=== PATIENT | male | born 1940 | race Caucasian/White ===

== ENCOUNTER 2016-12-04 08:33 | Day surgery (SDC) | payer OTHER, BC ==
[~2016-12-04] VITALS: Ht 167.6 cm; Wt 79.5 kg
--- NOTE | 2016-12-04 07:52 | History and Physical ---
History & Physical Chief Complaint: End stage renal disease, malfunctioning left upper extremity Herograft History of Present Illness The patient is a 74 year old male with ESRD on HD thru L upper extremity herograft. The dialysis unit is having trouble running his dialysis. Fistulogram was recommended. Pt denies OCHOA, fever, chills, chest pain, SOB, abd pain, N/V, rest pain, claudication, other complaints. Allergies No Known Allergies (Verified , 05/13/15) NKDA Surgical / Medical History Hx Cardiac Surgery: No Hx Abdominal Surgery: No Hx Cancer Surgery: No Hx Thoracic Surgery: No Hx Orthopedic: No Hx Urinary Tract Surgery: No Past Medical/Surgical History: Cancer (thyroid), High Cholesterol, Kidney Disease Family History Noncontributory Social History Smoking Status: Former Smoker (quit 8 yr ago) Hx Tobacco Use In Past Year?: No Hx Alcohol Use - Type & Amnt: No Hx Substance Use -Type & Amnt: No Review of Systems Constitutional: No chills, No malaise Skin: No change in color Eyes: No visual changes ENMT: No sore throat Respiratory: No LUNA, No cough, No hemoptysis, No short of breath Cardiovascular: No chest pain, No edema, No intermittent claudication, No palpitations, No syncope Gastrointestinal: No abdominal pain, No nausea, No vomiting Neurologic: No dizziness, No headache, No numbness, No tingling Physical Exam: Constitutional: General Apperance: well-nourished, well-developed Level of Distress: NAD, chronically ill Ambulation: ambulating normally Psychiatric: Mental Status: active & alert, normal mood, normal affect Orientation: oriented except where noted, to time, to place, to person Memory: recent memory normal, remote memory normal (somewhat vague) Head: normocephalic, atraumatic Eyes: EOM: EOMI ENMT: normal ENT inspection, hearing grossly normal Neck: supple, trachea midline Lungs: Respiratory effort: no dyspnea Auscultation: no wheezing, no rales/crackles, no rhonchi, decreased breath sounds Cardiovascular: Apical Impulse: not displaced Heart Auscultation: RRR, no murmurs, no rubs, no gallops Peripheral Pulses: Pulses: full and equal, in all extremities except if noted Bruits: none appreciated Carotid Pulse: normal on the left, normal on the right Brachial Pulses: normal on the left, normal on the right Radial Pulse: normal on the left, normal on the right, pertinent finding , thrill present in herograft Femoral Pulse: normal on the left, normal on the right Posterior Tibialis Pulse: normal on the left, normal on the right Dorsalis Pedis Pulse: normal on the left, normal on the right Abdomen: Inspection & Palpation: soft, non-distended, no tenderness, guarding & rebound Musculoskeletal: normal strength (5/5 throughout), normal tone Extremities: Upper Right: no cyanosis, no edema, no varicosities Upper Left: no cyanosis, no edema, no varicosities, thrill present Lower Right: no cyanosis, no edema, no varicosities, Lower Left: no cyanosis, no edema, no varicosities Neurologic: Cranial Nerves: grossly intact Sensation: grossly intact ASSESSMENT and PLAN: Malfuntioning herograft ESRD on HD Plan: Pt admitted for removal a fistulogram with possible intervention. Procedure , risks, benefits, and alternatives discussed with pt and sas analyst, Anup Browne. Pt expresses understanding and agreement
--- NOTE | 2016-12-04 07:59 | Procedure Note ---
Pre-Mod Sedation Assessment General Date of Moderate Sedation: Dec 04, 2016. Pre-Sedation Airway Assessment Smoking Status: Former Smoker Mallampati Classification: Class I ASA Classification: Class II Notes The planned sedation has been discussed with the patient and consent obtained. I have identified the patient, determined the appropriateness of sedation and have assessed the patient immediately prior to the procedure. All medicine(s) and interventions are by my order.
[~2016-12-04 08:33] MED LIST: ACET-1311 PO; ATOR-22 PO; B COTAB PO; CALC500C70 PO; CALC667C4 PO; CEFAZOLIN 1000MG/55 ML D5W IV SCH; CGN1X PO; D5W AND 1/4NSS 1000 ML IV SCH; FURO80TA63 PO; HALO100I IM; HLD5X PO; HYDCR1CL TOP; LEVO200T6 PO; NEOMOIN2 TD; OXYC-57 PO; PATIENT'S HEIGHT AND/OR WEIGHT NEEDED SCH; TERB1CRE TOP; TRIH2TAB3 PO; [UNRECOGNIZED DRUG - CODE] PO
[2016-12-04 08:50] VITALS: BP 93/70; PULSE 90; TEMP 36.8; O2SAT 94; Ht 167.6 cm; Wt 79.5 kg
--- NOTE | 2016-12-04 10:45 | History & Physical Bridge Note ---
H&P Re-Evaluation Bridge Note: I have examined the patient, reviewed the History & Physical and in the interval since the performance of the History & Physical I have noted the following changes of clinical significance: No changes noted
[2016-12-04] MEDS ORDERED: LIDOCAINE HCL 1% 20 ML VIAL INJ ONE (11:06)
[2016-12-04] MEDS ORDERED: OPTIRAY 300 IV ONE (11:19)
--- NOTE | 2016-12-04 11:25 | [facility] Post Operative Brief Note ---
Immediate Operative Summary Operative Date Dec 04, 2016. Pre-Operative Diagnosis malfunctioning fistula Post-Operative Diagnosis same Procedure(s) Performed Fistulogram Left Upper Extremity, Percutaneous Transluminal Angioplasty Fistula Surgeon Dr. Burton Embossing Machine Tender Surgeon(s) none Estimated Blood Loss 5 ml Findings no residual stenosis Specimens none Anesthesia Local Complication(s) None Disposition
--- NOTE | 2016-12-04 11:28 | Discharge Instructions ---
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 Post Anesthesia Instructions: If you have had General Anesthesia or IV Sedation: * Do not drive today. * Resume driving when surgeon permits. * Do not make important decisions or sign legal documents today. * Call surgeon for: 1. Temperature elevations greater than 101 degrees F. 2. Uncontrollable pain. 3. Excessive bleeding. 4. Persistent nausea and vomiting. 5. Medication intolerance (nausea, vomiting or rash). * For nausea and vomiting use only clear liquids such as: tea, soda, bouillon until nausea subsides, then gradually increase diet as tolerated. * If you have any concerns or questions, call your surgeon's office. If physician is unavailable and it is an emergency, call 911 or go to the nearest emergency room. . Instructions / Follow-Up Instructions / Follow-Up Call [phone] with any questions or concerns. SPECIAL CARE INSTRUCTIONS: Medications: * Continue to take your medications as directed. If you have been given a prescription for Plavix, please fill it immediately and take as directed. Incision Care: * Your puncture site may have some bruising and minor swelling for about one week. * You will have a small dressing covering your puncture site. You may remove the dressing after 24 hours and shower. You may let the warm soapy water run over it, but be sure to dry the puncture site well and keep it dry. * DO NOT IMMERSE THE INCISION IN A TUB/POOL/etc. UNTIL HEALED. * Puncture sites should be kept covered with a band-aid until it begins to heal. Restrictions: * Depending on whether you leg or arm was punctured to access the arteries, you will be required to lay flat, hold your arm still, or both, for about 4 hours after the procedure to prevent bleeding. * Limit your activity for the first 48 hours. You may walk and go up and down steps. Avoid excessive bending or movement at the puncture site. Possible Complications: * Excessive Swelling - after blood flow is improved you may notice increased swelling in the lower legs. This is a normal response. This usually depends on the amount of blockages in the leg, how long they have been there prior to your procedure and how much blood flow was restored. Elevating your legs will help to improve this. Please notify our office ([phone] ) if the swelling does not go away after lying in bed overnight. * Infection/Drainage/Bleeding - Drainage or bleeding from the puncture site should be minimal. If you have excessive bleeding or drainage, call our office ([phone]) right away. * Pain - You may experience some mild pain or soreness at your puncture site. If your pain does not improve, please contact our office ([phone]). Call your doctor and seek emergent treatment if you develop: * Temperature above 101 degrees * Any fever or chills * Any redness or purulent drainage from the puncture site * Any new dusky/blue colored toes or feet with coolness or sharp or aching pain. SKIN IRRITATION: * You may experience some redness and/or swelling in the area where radiation was administered. If any skin irritation occurs, please contact your family physician. FOLLOW UP VISIT: Keep any scheduled doctor appointments. Diet Recommendations Recommended Home Diet: resume previous diet Procedures Procedures Performed: Fistulogram Left Upper Extremity, Percutaneous Transluminal Angioplasty Fistula Pending Studies Studies pending at discharge: no Medical Emergencies . Who to Call and When: Medical Emergencies: If at any time you feel your situation is an emergency, please call 911 immediately. . Non-Emergent Contact Non-Emergency issues call your: Surgeon . . "Provider Documentation" section prepared by Wilberto Burton.
[2016-12-04 11:30] VITALS: BP 122/62; PULSE 77; TEMP 36.5; O2SAT 95
--- NOTE | 2016-12-04 11:52 | DIAGNOSTIC IMAGING REPORT ---
DATE OF PROCEDURE: 12/04/2016 PREOPERATIVE DIAGNOSIS: Malfunctioning left upper arm HeRO graft. POSTOPERATIVE DIAGNOSIS: Same. PROCEDURE: 1. Left upper extremity fistulogram. 2. Balloon angioplasty of the fistula. SURGEON: Dr. Burton. ANESTHETIC: Local. PROCEDURE INDICATIONS: The patient is a 76-year-old gentleman with a HeROGraft in his left upper extremity. Fistulogram was recommended. The patient understood the risks, options and benefits and agreed to go ahead with the procedure. The patient was taken to the angio suite and placed in supine position. The left upper arm was then prepped and draped in a sterile manner. Local anesthetic was administered. Using micropuncture technique the fistula was punctured. The fistulogram was performed. This showed a tight stenosis in the mid portion of the prosthetic fistula. The catheter portion of the HeROGraft was widely patent. An 0.035 wire was then inserted. The sheath was exchanged to a 5-Welsh sheath. A 7 x 4 balloon was then inserted and the area was ballooned twice to 18 atmospheres of pressure. Post-dilatation there was no residual stenosis. Sheath was then pulled, pressure was applied. Adequate hemostasis was obtained. The fistula itself other than its narrowing was widely patent through the catheter of the HeROGraft. Proximally the arterial anastomosis was widely patent in the proximal portion of the graft before the puncture. Sterile dressings were then applied to the wound. The patient left the angio suite in good condition and tolerated the procedure well.
[2016-12-04 11:55] VITALS: BP 112/63; PULSE 75; TEMP 36.6; O2SAT 96
== END 2016-12-04 12:05 | disposition home or self-care (01) ==
LOC: C.ACU 08:33
PROVIDERS: ATTEND Surgery Vascular Surgery
DX: T82.898A Other specified complication of vascular prosthetic devices, implants and grafts, initial encounter (principal); N18.6 End stage renal disease; I12.0 Hypertensive chronic kidney disease with stage 5 chronic kidney disease or end stage renal disease; E78.00 Pure hypercholesterolemia, unspecified; Z99.2 Dependence on renal dialysis; Z87.891 Personal history of nicotine dependence; Y84.8 Other medical procedures as the cause of abnormal reaction of the patient, or of later complication, without mention of misadventure at the time of the procedure

== ENCOUNTER 2017-03-26 07:45 | Day surgery (SDC) | payer OTHER, BC ==
[~2017-03-26] VITALS: Ht 165.1 cm; Wt 78.0 kg
--- NOTE | 2017-03-26 07:36 | History and Physical ---
History & Physical Date of Service Mar 26, 2017. History & Physical Chief Complaint: End stage renal disease, malfunctioning left upper extremity Herograft History of Present Illness The patient is a 74 year old male with ESRD on HD thru L upper extremity herograft. The dialysis unit is having trouble running his dialysis. Fistulogram was recommended. Pt denies OCHOA, fever, chills, chest pain, SOB, abd pain, N/V, rest pain, claudication, other complaints. Allergies No Known Allergies (Verified , 05/13/15) NKDA Surgical / Medical History Hx Cardiac Surgery: No Hx Abdominal Surgery: No Hx Cancer Surgery: No Hx Thoracic Surgery: No Hx Orthopedic: No Hx Urinary Tract Surgery: No Past Medical/Surgical History: Cancer (thyroid), High Cholesterol, Kidney Disease Family History Noncontributory Social History Smoking Status: Former Smoker (quit 8 yr ago) Hx Tobacco Use In Past Year?: No Hx Alcohol Use - Type & Amnt: No Hx Substance Use -Type & Amnt: No Review of Systems Constitutional: No chills, No malaise Skin: No change in color Eyes: No visual changes ENMT: No sore throat Respiratory: No LUNA, No cough, No hemoptysis, No short of breath Cardiovascular: No chest pain, No edema, No intermittent claudication, No palpitations, No syncope Gastrointestinal: No abdominal pain, No nausea, No vomiting Neurologic: No dizziness, No headache, No numbness, No tingling Physical Exam: Constitutional: General Apperance: well-nourished, well-developed Level of Distress: NAD, chronically ill Ambulation: ambulating normally Psychiatric: Mental Status: active & alert, normal mood, normal affect Orientation: oriented except where noted, to time, to place, to person Memory: recent memory normal, remote memory normal (somewhat vague) Head: normocephalic, atraumatic Eyes: EOM: EOMI ENMT: normal ENT inspection, hearing grossly normal Neck: supple, trachea midline Lungs: Respiratory effort: no dyspnea Auscultation: no wheezing, no rales/crackles, no rhonchi, decreased breath sounds Cardiovascular: Apical Impulse: not displaced Heart Auscultation: RRR, no murmurs, no rubs, no gallops Peripheral Pulses: Pulses: full and equal, in all extremities except if noted Bruits: none appreciated Carotid Pulse: normal on the left, normal on the right Brachial Pulses: normal on the left, normal on the right Radial Pulse: normal on the left, normal on the right, pertinent finding , thrill present in herograft Femoral Pulse: normal on the left, normal on the right Posterior Tibialis Pulse: normal on the left, normal on the right Dorsalis Pedis Pulse: normal on the left, normal on the right Abdomen: Inspection & Palpation: soft, non-distended, no tenderness, guarding & rebound Musculoskeletal: normal strength (5/5 throughout), normal tone Extremities: Upper Right: no cyanosis, no edema, no varicosities Upper Left: no cyanosis, no edema, no varicosities, thrill present Lower Right: no cyanosis, no edema, no varicosities, Lower Left: no cyanosis, no edema, no varicosities Neurologic: Cranial Nerves: grossly intact Sensation: grossly intact ASSESSMENT and PLAN: Malfuntioning herograft ESRD on HD Plan: Pt admitted for a fistulogram with possible intervention. Procedure, risks, benefits, and alternatives discussed with pt and inverform machine operator, Anup Browne. Pt expresses understanding and agreement
--- NOTE | 2017-03-26 07:37 | Procedure Note ---
Pre-Mod Sedation Assessment General Date of Moderate Sedation: Mar 26, 2017. Pre-Sedation Airway Assessment Smoking Status: Former Smoker Mallampati Classification: Class I ASA Classification: Class II Notes The planned sedation has been discussed with the patient and consent obtained. I have identified the patient, determined the appropriateness of sedation and have assessed the patient immediately prior to the procedure. All medicine(s) and interventions are by my order.
[~2017-03-26 07:45] MED LIST changes: +BENZ-88 PO; -CGN1X PO; -D5W AND 1/4NSS 1000 ML IV SCH; -NEOMOIN2 TD; +NEOMOIN3 TD; -PATIENT'S HEIGHT AND/OR WEIGHT NEEDED SCH
[2017-03-26 08:14] VITALS: BP 98/69; PULSE 91; TEMP 36.8; O2SAT 97; Ht 165.1 cm; Wt 78.0 kg
[2017-03-26 10:17] VITALS: BP 98/69; PULSE 91; TEMP 36.8; O2SAT 97
[2017-03-26] MEDS ORDERED: FENTANYL CITRATE INJ 50 MCG/1 ML 2 ML VIAL ONE (10:58)
[2017-03-26] MEDS ORDERED: MIDAZOLAM HCL 1 MG/ML 2ML VIAL ONE (10:58)
[2017-03-26] MEDS ORDERED: OPTIRAY 300 IV ONE (11:20)
[2017-03-26] MEDS ORDERED: LIDOCAINE HCL 1% 20 ML VIAL INJ ONE (11:20)
--- NOTE | 2017-03-26 11:23 | [facility] Post Operative Brief Note ---
Immediate Operative Summary Operative Date Mar 26, 2017. Pre-Operative Diagnosis Malfunction Fistula Post-Operative Diagnosis Same Procedure(s) Performed Fistulogram, Percutaneous Transluminal Angioplasty Venous, Surgeon Dr. Burton Infection Control Practitioner Surgeon(s) None Estimated Blood Loss 3 Findings stenosis in fistula, no residual post block captain Specimens None Anesthesia Local Complication(s) None Disposition
--- NOTE | 2017-03-26 11:25 | Discharge Instructions ---
Discharge Instructions Date of Service Mar 26, 2017. Visit Reason for Visit: Malfunctioning Arteriovenous Fistula Discharge Discharge Diagnosis / Problem: Malfunctioning left upper arm herograft Discharge Goals Goal(s): Therapeutic intervention Activity Recommendations Activity Limitations: per Instructions/Follow-up section Anesthesia . Post Anesthesia Instructions: If you have had General Anesthesia or IV Sedation: * Do not drive today. * Resume driving when surgeon permits. * Do not make important decisions or sign legal documents today. * Call surgeon for: 1. Temperature elevations greater than 101 degrees F. 2. Uncontrollable pain. 3. Excessive bleeding. 4. Persistent nausea and vomiting. 5. Medication intolerance (nausea, vomiting or rash). * For nausea and vomiting use only clear liquids such as: tea, soda, bouillon until nausea subsides, then gradually increase diet as tolerated. * If you have any concerns or questions, call your surgeon's office. If physician is unavailable and it is an emergency, call 911 or go to the nearest emergency room. . Instructions / Follow-Up Instructions / Follow-Up Call [phone] with any questions or concerns. SPECIAL CARE INSTRUCTIONS: Medications: * Continue to take your medications as directed. If you have been given a prescription for Plavix, please fill it immediately and take as directed. Incision Care: * Your puncture site may have some bruising and minor swelling for about one week. * You will have a small dressing covering your puncture site. You may remove the dressing after 24 hours and shower. You may let the warm soapy water run over it, but be sure to dry the puncture site well and keep it dry. * DO NOT IMMERSE THE INCISION IN A TUB/POOL/etc. UNTIL HEALED. * Puncture sites should be kept covered with a band-aid until it begins to heal. Restrictions: * Depending on whether you leg or arm was punctured to access the arteries, you will be required to lay flat, hold your arm still, or both, for about 4 hours after the procedure to prevent bleeding. * Limit your activity for the first 48 hours. You may walk and go up and down steps. Avoid excessive bending or movement at the puncture site. Possible Complications: * Excessive Swelling - after blood flow is improved you may notice increased swelling in the lower legs. This is a normal response. This usually depends on the amount of blockages in the leg, how long they have been there prior to your procedure and how much blood flow was restored. Elevating your legs will help to improve this. Please notify our office ([phone] ) if the swelling does not go away after lying in bed overnight. * Infection/Drainage/Bleeding - Drainage or bleeding from the puncture site should be minimal. If you have excessive bleeding or drainage, call our office ([phone]) right away. * Pain - You may experience some mild pain or soreness at your puncture site. If your pain does not improve, please contact our office ([phone]). Call your doctor and seek emergent treatment if you develop: * Temperature above 101 degrees * Any fever or chills * Any redness or purulent drainage from the puncture site * Any new dusky/blue colored toes or feet with coolness or sharp or aching pain. SKIN IRRITATION: * You may experience some redness and/or swelling in the area where radiation was administered. If any skin irritation occurs, please contact your family physician. FOLLOW UP VISIT: Keep any scheduled doctor appointments. Diet Recommendations Recommended Home Diet: resume previous diet Procedures Procedures Performed: Fistulogram, Percutaneous Transluminal Angioplasty Venous, Pending Studies Studies pending at discharge: no Medical Emergencies . Who to Call and When: Medical Emergencies: If at any time you feel your situation is an emergency, please call 911 immediately. . Non-Emergent Contact Non-Emergency issues call your: Surgeon . . "Provider Documentation" section prepared by Wilberto Burton. .
[2017-03-26 11:32] VITALS: BP 128/75; PULSE 87; TEMP 37.4; O2SAT 95
--- NOTE | 2017-03-26 11:51 | DIAGNOSTIC IMAGING REPORT ---
DATE OF PROCEDURE: 03/26/2017 PREOPERATIVE DIAGNOSIS: Malfunctioning left upper arm HeRO graft. POSTOPERATIVE DIAGNOSIS: Stenosis of the graft. PROCEDURE: 1. Fistulogram. 2. Balloon angioplasty of the fistula venous outflow. SURGEON: Dr. Burton. ANESTHETIC: Local. PROCEDURE INDICATIONS: The patient is a 76-year-old male on dialysis with a left upper arm HeRO graft. The dialysis unit is having poor runs. Fistulogram was recommended. He underwent CONSIGNEE of the fistula in the past. This was discussed with the patient who understood the risks, options and benefits. It was also discussed with his brother who is his POA and consent was obtained. The patient was taken to the angio suite and placed in supine position. After left arm was prepped and draped in a sterile manner, local anesthetic was administered. Percutaneous puncture was made of the proximal portion of the fistula in the left upper arm using micropuncture technique. Fistulogram was then performed. This shows 2 areas of moderate stenosis, one in the mid portion of the fistula, one up near the HeRO graft connection. There is also an area just in the proximal portion between the short vein part of the fistula and the prosthetic fistula which had a mild stenosis but had some difficulty getting the wire through when placing the sheath. It was decided to balloon these areas. The sheath was exchanged over a wire to a 6-[place]vian sheath. An 0.035 Glidewire was then passed through the bowel lesions. Using a 6 mm Conquest balloon the 3 areas were dilated to 36 atmospheres of pressure. There was minimal residual stenosis seen at the end of the balloon angioplasties. Good thrill was then felt. The sheath was then pulled. Pressure was applied. Adequate hemostasis was obtained. Sterile dressings were then applied to the wound. The patient left the angio suite in good condition and tolerated the procedure well.
[2017-03-26 12:00] VITALS: BP 115/66; PULSE 83; TEMP 37.2; O2SAT 95
[2017-03-26] MEDS ORDERED: D5W AND 1/4NSS 1,000 ML IV SCH (16:30)
[2017-10-29] MEDS ORDERED: POLYSOL21 OP ×2 (06:36)
[2017-10-29] MEDS ORDERED: OXYC-57 PO (09:57)
== END 2017-03-26 12:20 | disposition home or self-care (01) ==
LOC: C.ACU 07:45
PROVIDERS: ATTEND Surgery Vascular Surgery
DX: T82.590A Other mechanical complication of surgically created arteriovenous fistula, initial encounter (principal); Y83.2 Surgical operation with anastomosis, bypass or graft as the cause of abnormal reaction of the patient, or of later complication, without mention of misadventure at the time of the procedure; N18.6 End stage renal disease; Z99.2 Dependence on renal dialysis; E78.00 Pure hypercholesterolemia, unspecified; Z87.891 Personal history of nicotine dependence

== ENCOUNTER 2017-07-23 08:05 | Day surgery (SDC) | payer OTHER, BC ==
[~2017-07-23] VITALS: Ht 167.6 cm; Wt 80.0 kg
--- NOTE | 2017-07-23 06:08 | History and Physical ---
History & Physical Date of Service Jul 23, 2017. History & Physical Chief Complaint: End stage renal disease, malfunctioning left upper extremity Herograft History of Present Illness The patient is a 74 year old male with ESRD on HD thru L upper extremity herograft. The dialysis unit is having trouble running his dialysis. Fistulogram was recommended. Pt denies OCHOA, fever, chills, chest pain, SOB, abd pain, N/V, rest pain, claudication, other complaints. Allergies No Known Allergies (Verified , 05/13/15) NKDA Surgical / Medical History Hx Cardiac Surgery: No Hx Abdominal Surgery: No Hx Cancer Surgery: No Hx Thoracic Surgery: No Hx Orthopedic: No Hx Urinary Tract Surgery: No Past Medical/Surgical History: Cancer (thyroid), High Cholesterol, Kidney Disease Family History Noncontributory Social History Smoking Status: Former Smoker (quit 8 yr ago) Hx Tobacco Use In Past Year?: No Hx Alcohol Use - Type & Amnt: No Hx Substance Use -Type & Amnt: No Review of Systems Constitutional: No chills, No malaise Skin: No change in color Eyes: No visual changes ENMT: No sore throat Respiratory: No LUNA, No cough, No hemoptysis, No short of breath Cardiovascular: No chest pain, No edema, No intermittent claudication, No palpitations, No syncope Gastrointestinal: No abdominal pain, No nausea, No vomiting Neurologic: No dizziness, No headache, No numbness, No tingling Physical Exam: Constitutional: General Apperance: well-nourished, well-developed Level of Distress: NAD, chronically ill Ambulation: ambulating normally Psychiatric: Mental Status: active & alert, normal mood, normal affect Orientation: oriented except where noted, to time, to place, to person Memory: recent memory normal, remote memory normal (somewhat vague) Head: normocephalic, atraumatic Eyes: EOM: EOMI ENMT: normal ENT inspection, hearing grossly normal Neck: supple, trachea midline Lungs: Respiratory effort: no dyspnea Auscultation: no wheezing, no rales/crackles, no rhonchi, decreased breath sounds Cardiovascular: Apical Impulse: not displaced Heart Auscultation: RRR, no murmurs, no rubs, no gallops Peripheral Pulses: Pulses: full and equal, in all extremities except if noted Bruits: none appreciated Carotid Pulse: normal on the left, normal on the right Brachial Pulses: normal on the left, normal on the right Radial Pulse: normal on the left, normal on the right, pertinent finding , thrill present in herograft Femoral Pulse: normal on the left, normal on the right Posterior Tibialis Pulse: normal on the left, normal on the right Dorsalis Pedis Pulse: normal on the left, normal on the right Abdomen: Inspection & Palpation: soft, non-distended, no tenderness, guarding & rebound Musculoskeletal: normal strength (5/5 throughout), normal tone Extremities: Upper Right: no cyanosis, no edema, no varicosities Upper Left: no cyanosis, no edema, no varicosities, thrill present Lower Right: no cyanosis, no edema, no varicosities, Lower Left: no cyanosis, no edema, no varicosities Neurologic: Cranial Nerves: grossly intact Sensation: grossly intact ASSESSMENT and PLAN: Malfuntioning herograft ESRD on HD Plan: Pt admitted for a fistulogram with possible intervention. I have discussed the risks options and benefits of the procedure with the patient. The patient understands the risks options and benefits and agrees to the procedure.
[~2017-07-23 08:05] MED LIST changes: -BENZ-88 PO; +CGN1X PO; +D5W AND 1/4NSS 1000 ML IV SCH; -NEOMOIN3 TD; -OXYC-57 PO; -TERB1CRE TOP
[2017-07-23 08:37] VITALS: BP 99/62; PULSE 72; TEMP 36.5; O2SAT 93; Ht 167.6 cm; Wt 80.0 kg
--- NOTE | 2017-07-23 10:08 | Progress Note ---
Progress Note Date of Service Jul 23, 2017. Progress Note consent obtained from POA. I have discussed the risks options and benefits of the procedure with the poa. The poa understands the risks options and benefits and agrees to the procedure.
--- NOTE | 2017-07-23 10:09 | Procedure Note ---
Pre-Mod Sedation Assessment General Date of Moderate Sedation: Jul 23, 2017. Vital Signs: Vital Signs Past 12 Hours Date Time Temp Pulse Resp B/P (MAP) Pulse Ox O2 Delivery O2 Flow Rate FiO2 07/23/17 08:37 36.5 72 18 99/62 (74) 93 Room Air Pre-Sedation Airway Assessment Short Thick Neck: No Hx of Sleep Apnea: No Smoking Status: Former Smoker Mallampati Classification: Class I ASA Classification: Class III Notes The planned sedation has been discussed with the patient and consent obtained. I have identified the patient, determined the appropriateness of sedation and have assessed the patient immediately prior to the procedure. All medicine(s) and interventions are by my order.
[2017-07-23 12:11] VITALS: BP 99/62; TEMP 36.5; O2SAT 93
[2017-07-23] MEDS ORDERED: FENTANYL CITRATE INJ 50 MCG/1 ML 2 ML VIAL ONE (12:14)
[2017-07-23] MEDS ORDERED: MIDAZOLAM HCL 1 MG/ML 2ML VIAL ONE (12:15)
[2017-07-23] MEDS ORDERED: LIDOCAINE HCL 1% 20 ML VIAL INJ ONE ×2 (12:35→13:02)
--- NOTE | 2017-07-23 13:01 | [facility] Post Operative Brief Note ---
Immediate Operative Summary Operative Date Jul 23, 2017. Pre-Operative Diagnosis Malfunctioning Fistula Post-Operative Diagnosis Same Procedure(s) Performed Fistulogram, ELECTRICAL MACHINE BUILDER venous Surgeon Dr. Burton Biofuels Production Manager Surgeon(s) Dr. Red Oleary Estimated Blood Loss 5 Findings no residual stenosis Specimens None Anesthesia Local Complication(s) None Disposition
[2017-07-23] MEDS ORDERED: OPTIRAY 300 IV ONE (13:02)
--- NOTE | 2017-07-23 13:02 | Discharge Instructions ---
Discharge Instructions Date of Service Jul 23, 2017. Visit Reason for Visit: End Stage Renal Disease, Malfunctioning Fistula Discharge Discharge Diagnosis / Problem: Malfunctioning fistula Discharge Goals Goal(s): Therapeutic intervention Activity Recommendations Activity Limitations: resume your previous activity Anesthesia . Post Anesthesia Instructions: If you have had General Anesthesia or IV Sedation: * Do not drive today. * Resume driving when surgeon permits. * Do not make important decisions or sign legal documents today. * Call surgeon for: 1. Temperature elevations greater than 101 degrees F. 2. Uncontrollable pain. 3. Excessive bleeding. 4. Persistent nausea and vomiting. 5. Medication intolerance (nausea, vomiting or rash). * For nausea and vomiting use only clear liquids such as: tea, soda, bouillon until nausea subsides, then gradually increase diet as tolerated. * If you have any concerns or questions, call your surgeon's office. If physician is unavailable and it is an emergency, call 911 or go to the nearest emergency room. . Instructions / Follow-Up Instructions / Follow-Up Call [phone] with any questions or concerns. SPECIAL CARE INSTRUCTIONS: Medications: * Continue to take your medications as directed. If you have been given a prescription for Plavix, please fill it immediately and take as directed. Incision Care: * Your puncture site may have some bruising and minor swelling for about one week. * You will have a small dressing covering your puncture site. You may remove the dressing after 24 hours and shower. You may let the warm soapy water run over it, but be sure to dry the puncture site well and keep it dry. * DO NOT IMMERSE THE INCISION IN A TUB/POOL/etc. UNTIL HEALED. * Puncture sites should be kept covered with a band-aid until it begins to heal. Restrictions: * Depending on whether you leg or arm was punctured to access the arteries, you will be required to lay flat, hold your arm still, or both, for about 4 hours after the procedure to prevent bleeding. * Limit your activity for the first 48 hours. You may walk and go up and down steps. Avoid excessive bending or movement at the puncture site. Possible Complications: * Excessive Swelling - after blood flow is improved you may notice increased swelling in the lower legs. This is a normal response. This usually depends on the amount of blockages in the leg, how long they have been there prior to your procedure and how much blood flow was restored. Elevating your legs will help to improve this. Please notify our office ([phone] ) if the swelling does not go away after lying in bed overnight. * Infection/Drainage/Bleeding - Drainage or bleeding from the puncture site should be minimal. If you have excessive bleeding or drainage, call our office ([phone]) right away. * Pain - You may experience some mild pain or soreness at your puncture site. If your pain does not improve, please contact our office ([phone]). Call your doctor and seek emergent treatment if you develop: * Temperature above 101 degrees * Any fever or chills * Any redness or purulent drainage from the puncture site * Any new dusky/blue colored toes or feet with coolness or sharp or aching pain. SKIN IRRITATION: * You may experience some redness and/or swelling in the area where radiation was administered. If any skin irritation occurs, please contact your family physician. FOLLOW UP VISIT: Keep any scheduled doctor appointments. Diet Recommendations Recommended Home Diet: resume previous diet Procedures Procedures Performed: Fistulogram, SHIP BOAT OR BARGE MATE venous Pending Studies Studies pending at discharge: no Medical Emergencies . Who to Call and When: Medical Emergencies: If at any time you feel your situation is an emergency, please call 911 immediately. . Non-Emergent Contact Non-Emergency issues call your: Surgeon . . "Provider Documentation" section prepared by Wilberto Burton. .
[2017-07-23 13:15] VITALS: BP 120/65; PULSE 75; TEMP 36.6; O2SAT 93
--- NOTE | 2017-07-23 13:15 | [facility] Operative Report ---
Operative Report Operative Date Jul 23, 2017. Pre-Operative Diagnosis Malfunctioning Fistula Post-Operative Diagnosis Same Procedure(s) Performed Fistulogram, DATA ANALYST ETL DEVELOPER venous (Eastover 6 x 100 mm balloon) Surgeon Dr. Burton Toll Service Observer Surgeon(s) Dr. Red Oleary Estimated Blood Loss 5 Findings Patient had an area of stenosis made graft just distal to the arterial graft anastomosis with smaller area of mild stenosis in the mid graft. There was no evidence of central stenosis within the hero graft. A completion fistulogram showed good result with no residual stenosis. contrast 16cc Fluoro time 1.8min Radiation 8mGy Specimens None Anesthesia Local Complication(s) None Disposition Recovery Room / PACU Indications 74 year old male with ESRD on HD thru L upper extremity herograft. The dialysis unit is having trouble running his dialysis. Fistulogram was recommended. Description of Procedure Patient was prepped operating room and placed on the operating table in supine position left upper extremity was extended and prepped and draped in sterile fashion. 1% lidocaine was injected over the hero graft under the skin and a micropuncture technique was used to access the hero graft. This was done with a Seldinger technique and a micropuncture puncture sheath was placed over the wire. A fistulogram was completed and carried centrally. This showed a patent hero graft with 2 areas of stenosis one just distal to the and a stenosis between the artery and the graft and a second area of mild stenosis within the hero graft. The first access of the fistula was cannulated into the arterial side so a second attempt access the graft was completed and this time access the hero graft. An angled glide 0.035 wire was advanced and the micropuncture sheath was exchanged for a 5 Hungarian sheath over the wire. A 6 x 100 mm Eastover balloon was then advanced into the graft and angioplasty of the entire hero graft was completed all the way back to the area of access. The completion. Fistulogram was carried out showing resolution of stenosis within the graft as well as a patent arterial to graft and a stenosis. The sheath wire and balloon were all removed and a gentle pressure was applied over the puncture site until hemostasis was achieved. Patient was then taken to the recovery room in good condition with no complications. Dr. Burton was present for the entirety of the case. I, Dr. Burton was present and scrubbed for the entire procedure. I attest to the content of the Intraoperative Record and any orders documented therein. Any exceptions are noted below.
[2017-07-23 13:34] VITALS: BP 122/65; PULSE 71; TEMP 36.6; O2SAT 93
[2017-07-23 13:53] VITALS: BP 114/79; PULSE 72; TEMP 36.6; O2SAT 96
[2017-07-23 14:15] VITALS: BP 104/71; PULSE 74; TEMP 36.5; O2SAT 96
== END 2017-07-23 14:30 | disposition home or self-care (01) ==
LOC: C.ACU 08:05
PROVIDERS: ATTEND Surgery Vascular Surgery
DX: T82.858A Stenosis of other vascular prosthetic devices, implants and grafts, initial encounter (principal); N18.6 End stage renal disease; Z99.2 Dependence on renal dialysis; E78.00 Pure hypercholesterolemia, unspecified; Z87.891 Personal history of nicotine dependence; Z79.899 Other long term (current) drug therapy; X58.XXXA Exposure to other specified factors, initial encounter

== ENCOUNTER → 2017-10-29 | Day surgery (SDC) | payer OTHER, BC ==
[~2017-10-29] VITALS: Ht 167.6 cm; Wt 74.8 kg
[~2017-10-29] MED LIST changes: +ATROPINE SULFATE 0.1 MG/ML 5ML SYR IV PRN; +BENZ-88 PO; +BUPIVACAINE/EPINEPHRINE 0.5% MPF 1:200,000 30 ML VIAL ONE; +CEFAZOLIN 1000MG IV PUSH 5 ML IV SCH; -CEFAZOLIN 1000MG/55 ML D5W IV SCH; +CEFAZOLIN SOD 1000MG/5 ML IV PUSH IV ONE; -CGN1X PO; -D5W AND 1/4NSS 1000 ML IV SCH; +EpHEDrine SULFATE 50MG/5ML SYR ONE; +FENTANYL CITRATE INJ 50 MCG/1 ML 2 ML VIAL IV PRN; +FENTANYL CITRATE INJ 50 MCG/1 ML 2 ML VIAL ONE; +GELATIN SPONGE 12-7MM ONE; +HEPARIN SOD (PORCINE) 1000 UNIT/ML 10 ML VIAL ONE; +LABETALOL HCL IV 5 MG/ML 20ML IV PRN; +LIDOCAINE HCL 1% 20 ML VIAL ONE; +ONDANSETRON INJ 2 MG/ML 2 ML VIAL IV PRN; +OPTIRAY 300 INJ ONE; +OXYC-57 PO; +POLYSOL21 OP; +PROPOFOL IV EMULSION 10 MG/ML 20 ML VIAL IV ONE; +SODIUM CHLORIDE 0.9% 1000ML 1,000 ML IV SCH; +THROMBIN 5000 UNITS KIT ONE
--- NOTE | 2017-10-29 06:05 | History and Physical ---
History & Physical Date of Service Oct 29, 2017. History & Physical Chief Complaint: End stage renal disease, thrombosed left upper extremity Herograft History of Present Illness The patient is a 74 year old male with ESRD on HD thru L upper extremity herograft. The dialysis unit is having trouble running his dialysis. Fistulogram was recommended. He underwent a fistulogram with BUDGET MANAGER of the fistula in Jul. It was now found to be thrombosed. Pt denies OCHOA, fever, chills , chest pain, SOB, abd pain, N/V, rest pain, claudication, other complaints. Allergies No Known Allergies (Verified , 05/13/15) NKDA Surgical / Medical History Hx Cardiac Surgery: No Hx Abdominal Surgery: No Hx Cancer Surgery: No Hx Thoracic Surgery: No Hx Orthopedic: No Hx Urinary Tract Surgery: No Past Medical/Surgical History: Cancer (thyroid), High Cholesterol, Kidney Disease Family History Noncontributory Social History Smoking Status: Former Smoker (quit 8 yr ago) Hx Tobacco Use In Past Year?: No Hx Alcohol Use - Type & Amnt: No Hx Substance Use -Type & Amnt: No Review of Systems Constitutional: No chills, No malaise Skin: No change in color Eyes: No visual changes ENMT: No sore throat Respiratory: No LUNA, No cough, No hemoptysis, No short of breath Cardiovascular: No chest pain, No edema, No intermittent claudication, No palpitations, No syncope Gastrointestinal: No abdominal pain, No nausea, No vomiting Neurologic: No dizziness, No headache, No numbness, No tingling Physical Exam: Constitutional: General Apperance: well-nourished, well-developed Level of Distress: NAD, chronically ill Ambulation: ambulating normally Psychiatric: Mental Status: active & alert, normal mood, normal affect Orientation: oriented except where noted, to time, to place, to person Memory: recent memory normal, remote memory normal (somewhat vague) Head: normocephalic, atraumatic Eyes: EOM: EOMI ENMT: normal ENT inspection, hearing grossly normal Neck: supple, trachea midline Lungs: Respiratory effort: no dyspnea Auscultation: no wheezing, no rales/crackles, no rhonchi, decreased breath sounds Cardiovascular: Apical Impulse: not displaced Heart Auscultation: RRR, no murmurs, no rubs, no gallops Peripheral Pulses: Pulses: full and equal, in all extremities except if noted Bruits: none appreciated Carotid Pulse: normal on the left, normal on the right Brachial Pulses: normal on the left, normal on the right Radial Pulse: normal on the left, normal on the right, pertinent finding , no thrill present in herograft Femoral Pulse: normal on the left, normal on the right Posterior Tibialis Pulse: normal on the left, normal on the right Dorsalis Pedis Pulse: normal on the left, normal on the right Abdomen: Inspection & Palpation: soft, non-distended, no tenderness, guarding & rebound Musculoskeletal: normal strength (5/5 throughout), normal tone Extremities: Upper Right: no cyanosis, no edema, no varicosities Upper Left: no cyanosis, no edema, no varicosities, thrill present Lower Right: no cyanosis, no edema, no varicosities, Lower Left: no cyanosis, no edema, no varicosities Neurologic: Cranial Nerves: grossly intact Sensation: grossly intact ASSESSMENT and PLAN: Thrombosed herograft ESRD on HD Plan: Pt admitted for a thrombectomy of the Herograft with fistulogram and possible revision. I have discussed the risks options and benefits of the procedure with the patient. The patient understands the risks options and benefits and agrees to the procedure.
[2017-10-29 06:37] VITALS: BP 122/72; PULSE 71; TEMP 36.5; O2SAT 98; Ht 167.6 cm; Wt 74.8 kg
[2017-10-29 07:39] LABS: CALCIUM 8.3 mg/dl (8.5-10.1); POTASSIUM 4.9 mmol/L (3.5-5.1)
--- NOTE | 2017-10-29 09:51 | [facility] Post Operative Brief Note ---
Immediate Operative Summary Operative Date Oct 29, 2017. Pre-Operative Diagnosis End-stage renal disease, thrombosed left upper extremity herograft Post-Operative Diagnosis End-stage renal disease, thrombosed left upper extremity herograft Procedure(s) Performed Left Upper Arm Open Thrombectomy, Fistulogram Surgeon Dr. Burton Street Light Mechanic Surgeon(s) none Estimated Blood Loss 50 Findings good thrill Specimens none Anesthesia MAC Complication(s) None Disposition Recovery Room / PACU
--- NOTE | 2017-10-29 09:58 | Discharge Instructions ---
Discharge Instructions Date of Service Oct 29, 2017. Visit Reason for Visit: End Stage Renal Disease, Clotted Left Upper Arm He Discharge Discharge Diagnosis / Problem: Thrombosed left upper arm fistula Discharge Goals Goal(s): Therapeutic intervention Activity Recommendations Activity Limitations: per Instructions/Follow-up section Anesthesia . Post Anesthesia Instructions: If you have had General Anesthesia or IV Sedation: * Do not drive today. * Resume driving when surgeon permits. * Do not make important decisions or sign legal documents today. * Call surgeon for: 1. Temperature elevations greater than 101 degrees F. 2. Uncontrollable pain. 3. Excessive bleeding. 4. Persistent nausea and vomiting. 5. Medication intolerance (nausea, vomiting or rash). * For nausea and vomiting use only clear liquids such as: tea, soda, bouillon until nausea subsides, then gradually increase diet as tolerated. * If you have any concerns or questions, call your surgeon's office. If physician is unavailable and it is an emergency, call 911 or go to the nearest emergency room. . Instructions / Follow-Up Instructions / Follow-Up Call [phone] to schedule a follow up appointment if one not already scheduled. ACTIVITY RECOMMENDATIONS: See Above SPECIAL CARE INSTRUCTIONS: Call your doctor if: * Temperature above 101 degrees * Pain not relieved by pain medicine ordered * There is increased drainage or redness from any incision * You have any unanswered questions or concerns. Diet Recommendations Recommended Home Diet: resume previous diet Procedures Procedures Performed: Left Upper Arm Open Thrombectomy; Fistulogram; Percutaneous transluminal angioplasty, venous Pending Studies Studies pending at discharge: no Medical Emergencies . Who to Call and When: Medical Emergencies: If at any time you feel your situation is an emergency, please call 911 immediately. . Non-Emergent Contact Non-Emergency issues call your: Surgeon . . "Provider Documentation" section prepared by Wilberto Burton. .
--- NOTE | 2017-10-29 10:11 | [facility] Operative Report ---
Operative Report Operative Date Oct 29, 2017. Pre-Operative Diagnosis End-stage renal disease, thrombosed left upper extremity herograft Post-Operative Diagnosis End-stage renal disease, thrombosed left upper extremity herograft Procedure(s) Performed Left Upper Arm Open Thrombectomy; Fistulogram; Percutaneous transluminal angioplasty, venous Surgeon Dr. Burton Steam Table Worker Surgeon(s) none Estimated Blood Loss 50 mL Findings thrombosed left arm herograft Specimens none Anesthesia MAC Complication(s) None Disposition Recovery Room / PACU Indications This patient's a 76-year-old male with a left upper extremity hero graft. It was found to be thrombosed at dialysis. Open thrombectomy with possible revision and fistulogram was recommended. I have discussed the risks options and benefits of the procedure with the patient. The patient understands the risks options and benefits and agrees to the procedure. Description of Procedure The patient was taken to the operating room placed in the supine position. The left arm was then prepped and draped in a sterile manner. Local anesthetic was administered. A transverse incision was made over the proximal portion of the fistula just above the antecubital crease. The graft was dissected free. It was isolated for a few centimeters. A transverse graftotomy was then performed. Using #3 and 4 Ayla catheter the venous limb was thrombectomized. A large amount of clot was removed. Backbleeding was seen. At that point the Ayla was passed through the arterial end and the arterial anastomosis. A large plug of the thrombus was removed. Excellent flow was seen at that time. We then placed an 8 Slovak sheath into the venous side. A fistulogram was performed which showed narrowing and a fair amount of irregularity in the midportion of the fistula. We then used a thrombectomy Ayla catheter and passed it through the venous side of the graft. A fistulogram done after this was performed which showed a smooth surface with no significant narrowings. The sheath was then removed and the graftotomy closed using a CV 6 Madison-Shivam suture in the usual running fashion. Clamps were removed. There was decreased flow through the fistula and a high pitched bruit at the arterial anastomosis. We then anesthetized the skin in the midportion of the fistula. Using micropuncture technique the fistula was punctured and the micropuncture sheath was inserted. Fistulogram was done through the arterial anastomosis. This was done on an oblique angle which showed a stenosis right at the arterial anastomosis with the brachial artery. We then passed the 035 wire through the sheath. The sheath was exchanged to a 5 Slovak sheath. A 5 x 4 balloon was then used and the arterial anastomosis was dilated without difficulty. After dilatation there was much better flow through the arterial side. Good Doppler signals were heard throughout the fistula at that point. The sheath was then pulled. Pressure was applied and adequate hemostasis was obtained. Adequate hemostasis was noted of the wound and the wound was closed in the usual fashion with a running 3-0 Vicryl suture for the subcutaneous layer and chris for the skin. Dressings were applied to the wound and the patient left the operating room in satisfactory condition and tolerated the procedure well. All needle and sponge counts were correct at the end of the procedure I attest to the content of the Intraoperative Record and any orders documented therein. Any exceptions are noted below.
[2017-10-29 10:30] VITALS: BP 119/59; PULSE 68; TEMP 36.7; O2SAT 92
--- NOTE | 2017-10-29 10:38 | Anesthesiology Progress Note ---
Anesthesia Post Op Note Date & Time Oct 29, 2017 at 10:38 Vital Signs Pain Intensity: 0 Vital Signs Past 12 Hours Date Time Temp Pulse Resp B/P (MAP) Pulse Ox O2 Delivery O2 Flow Rate FiO2 10/29/17 10:20 67 13 95/62 (67) 94 Room Air 10/29/17 10:10 36.1 68 12 111/60 94 Room Air 10/29/17 10:00 67 13 117/63 98 Oxymask 4 10/29/17 09:51 36.3 70 16 107/63 99 Oxymask 10 10/29/17 06:37 36.5 71 20 122/72 98 Room Air Notes Mental Status: alert / awake / arousable, participated in evaluation Pt Amnestic to Procedure: Yes Nausea / Vomiting: adequately controlled Pain: adequately controlled Airway Patency, RR, SpO2: stable & adequate BP & HR: stable & adequate Hydration State: stable & adequate Anesthetic Complications: no major complications apparent
[2017-10-29 11:00] VITALS: BP 158/76; PULSE 73; TEMP 36.2; O2SAT 95
== END | disposition home or self-care (01) ==
LOC: C.ACU 06:07
PROVIDERS: ATTEND Surgery Vascular Surgery
DX: T82.868A Thrombosis due to vascular prosthetic devices, implants and grafts, initial encounter (principal); Y83.2 Surgical operation with anastomosis, bypass or graft as the cause of abnormal reaction of the patient, or of later complication, without mention of misadventure at the time of the procedure; I12.0 Hypertensive chronic kidney disease with stage 5 chronic kidney disease or end stage renal disease; N18.6 End stage renal disease; E78.00 Pure hypercholesterolemia, unspecified; E78.5 Hyperlipidemia, unspecified; Z85.850 Personal history of malignant neoplasm of thyroid; Z87.891 Personal history of nicotine dependence

== ENCOUNTER 2018-02-24 06:22 | Day surgery (SDC) | payer OTHER, BC ==
[~2018-02-24] VITALS: Ht 167.6 cm; Wt 74.9 kg
--- NOTE | 2018-02-24 05:49 | History and Physical ---
History & Physical Date of Service Feb 24, 2018. History & Physical Chief Complaint: End stage renal disease, thrombosed left upper extremity Herograft History of Present Illness The patient is a 74 year old male with ESRD on HD thru L upper extremity herograft. The dialysis unit is having trouble running his dialysis. Fistulogram was recommended. He underwent a fistulogram with RECEP of the fistula in Jul. It was now found to be thrombosed. Pt denies OCHOA, fever, chills , chest pain, SOB, abd pain, N/V, rest pain, claudication, other complaints. Allergies No Known Allergies (Verified , 05/13/15) NKDA Surgical / Medical History Hx Cardiac Surgery: No Hx Abdominal Surgery: No Hx Cancer Surgery: No Hx Thoracic Surgery: No Hx Orthopedic: No Hx Urinary Tract Surgery: No Past Medical/Surgical History: Cancer (thyroid), High Cholesterol, Kidney Disease Family History Noncontributory Social History Smoking Status: Former Smoker (quit 8 yr ago) Hx Tobacco Use In Past Year?: No Hx Alcohol Use - Type & Amnt: No Hx Substance Use -Type & Amnt: No Review of Systems Constitutional: No chills, No malaise Skin: No change in color Eyes: No visual changes ENMT: No sore throat Respiratory: No LUNA, No cough, No hemoptysis, No short of breath Cardiovascular: No chest pain, No edema, No intermittent claudication, No palpitations, No syncope Gastrointestinal: No abdominal pain, No nausea, No vomiting Neurologic: No dizziness, No headache, No numbness, No tingling Physical Exam: Constitutional: General Apperance: well-nourished, well-developed Level of Distress: NAD, chronically ill Ambulation: ambulating normally Psychiatric: Mental Status: active & alert, normal mood, normal affect Orientation: oriented except where noted, to time, to place, to person Memory: recent memory normal, remote memory normal (somewhat vague) Head: normocephalic, atraumatic Eyes: EOM: EOMI ENMT: normal ENT inspection, hearing grossly normal Neck: supple, trachea midline Lungs: Respiratory effort: no dyspnea Auscultation: no wheezing, no rales/crackles, no rhonchi, decreased breath sounds Cardiovascular: Apical Impulse: not displaced Heart Auscultation: RRR, no murmurs, no rubs, no gallops Peripheral Pulses: Pulses: full and equal, in all extremities except if noted Bruits: none appreciated Carotid Pulse: normal on the left, normal on the right Brachial Pulses: normal on the left, normal on the right Radial Pulse: normal on the left, normal on the right, pertinent finding , no thrill present in herograft Femoral Pulse: normal on the left, normal on the right Posterior Tibialis Pulse: normal on the left, normal on the right Dorsalis Pedis Pulse: normal on the left, normal on the right Abdomen: Inspection & Palpation: soft, non-distended, no tenderness, guarding & rebound Musculoskeletal: normal strength (5/5 throughout), normal tone Extremities: Upper Right: no cyanosis, no edema, no varicosities Upper Left: no cyanosis, no edema, no varicosities, thrill present Lower Right: no cyanosis, no edema, no varicosities, Lower Left: no cyanosis, no edema, no varicosities Neurologic: Cranial Nerves: grossly intact Sensation: grossly intact ASSESSMENT and PLAN: Thrombosed herograft ESRD on HD Plan: Pt admitted for mechanical thrombectomy of the Herograft with fistulogram and possible revision. I have discussed the risks options and benefits of the procedure with the patient. The patient understands the risks options and benefits and agrees to the procedure.
[~2018-02-24 06:22] MED LIST changes: -ATROPINE SULFATE 0.1 MG/ML 5ML SYR IV PRN; -BUPIVACAINE/EPINEPHRINE 0.5% MPF 1:200,000 30 ML VIAL ONE; -CEFAZOLIN 1000MG IV PUSH 5 ML IV SCH; +CEFAZOLIN 1000MG IV PUSH 7.5 ML IV SCH; -CEFAZOLIN SOD 1000MG/5 ML IV PUSH IV ONE; +D5W AND 1/4NSS 1,000 ML IV SCH; +D5W AND 1/4NSS 1000 ML IV SCH; -EpHEDrine SULFATE 50MG/5ML SYR ONE; -FENTANYL CITRATE INJ 50 MCG/1 ML 2 ML VIAL IV PRN; -FENTANYL CITRATE INJ 50 MCG/1 ML 2 ML VIAL ONE; -GELATIN SPONGE 12-7MM ONE; -HEPARIN SOD (PORCINE) 1000 UNIT/ML 10 ML VIAL ONE; -HYDCR1CL TOP; -LABETALOL HCL IV 5 MG/ML 20ML IV PRN; -LIDOCAINE HCL 1% 20 ML VIAL ONE; -ONDANSETRON INJ 2 MG/ML 2 ML VIAL IV PRN; -OPTIRAY 300 INJ ONE; -PROPOFOL IV EMULSION 10 MG/ML 20 ML VIAL IV ONE; -SODIUM CHLORIDE 0.9% 1000ML 1,000 ML IV SCH; -THROMBIN 5000 UNITS KIT ONE
[2018-02-24 07:10] VITALS: BP 153/92; PULSE 76; TEMP 36.6; O2SAT 94
[2018-02-24 07:33] VITALS: Ht 167.6 cm; Wt 74.9 kg
--- NOTE | 2018-02-24 07:37 | Pre Sedation Assessment ---
Pre Sedation Assessment General Date of Sedation: Feb 24, 2018. Vital Signs Past 12 Hours Date Time Temp Pulse Resp B/P (MAP) Pulse Ox O2 Delivery O2 Flow Rate FiO2 02/24/18 07:10 36.6 76 18 153/92 (112) 94 Room Air Review Cardiovascular: regular rate, rhythm Lungs: lungs clear Pre-Sedation Airway Assessment Smoking Status: Former Smoker Short Thick Neck: Yes Thyro-mental Distance: < or =3 Finger Breadths Mallampati Classification: Class II ASA Classification: Class III NPO Status Date of Last Intake of Fluids: Feb 23, 2018 Time of Last Intake of Fluids: 2199 Date of Last Intake of Solids: Feb 23, 2018 Time of Last Intake of Solids: 2199 Procedure Planning Contraindications for Sedation: None Current Medications Reviewed: Yes Notes The planned sedation has been discussed with the patient. Informed Consent was obtained. I have identified the patient, determined the appropriateness of sedation and have assessed the patient immediately prior to the procedure. All medicine(s) and interventions are by my order.
[2018-02-24] MEDS ORDERED: FENTANYL CITRATE INJ 50 MCG/1 ML 2 ML VIAL ONE (07:43)
[2018-02-24] MEDS ORDERED: MIDAZOLAM HCL 1 MG/ML 2ML VIAL ONE (07:43)
[2018-02-24] MEDS ORDERED: HEPARIN SOD (PORCINE) 5000 UNIT/ML 1 ML VIAL ONE (07:43)
[2018-02-24] MEDS ORDERED: DEXT1CAP (08:05)
[2018-02-24] MEDS ORDERED: RANI150T3 PO (08:05)
[2018-02-24] MEDS ORDERED: POLY335019 PO (08:05)
[2018-02-24] MEDS ORDERED: ACETLIQ12 PO (08:05)
[2018-02-24] MEDS ORDERED: ATROPINE SULFATE 0.1 MG/ML 10 ML SYR ONE (08:08)
[2018-02-24] MEDS ORDERED: HEPARIN SOD (PORCINE) 1000 UNIT/ML 10 ML VIAL ONE (08:23)
[2018-02-24] MEDS ORDERED: LIDOCAINE HCL 1% 20 ML VIAL SQ ONE (08:52)
[2018-02-24] MEDS ORDERED: IODIXANOL (VISIPAQUE) 270 MG/ML 50ML IV ONE (08:52)
[2018-02-24] MEDS ORDERED: HEPARIN SOD (PORCINE) 1000 UNIT/ML 10 ML VIAL IV ONE (08:53)
[2018-02-24] MEDS ORDERED: ORM MISCELLANEOUS MED XX ONE (08:58)
--- NOTE | 2018-02-24 09:07 | Post Sedation Assessment ---
Post Sedation Assessment General Date of Sedation Feb 24, 2018. Vital Signs: Vital Signs Past 12 Hours Date Time Temp Pulse Resp B/P (MAP) Pulse Ox O2 Delivery O2 Flow Rate FiO2 02/24/18 09:01 67 18 167/89 Room Air 02/24/18 08:56 68 20 161/92 Room Air 02/24/18 08:51 68 20 166/78 Room Air 02/24/18 08:46 77 18 172/96 Mask 4 02/24/18 08:45 18 Mask 4 02/24/18 08:40 Mask 4 02/24/18 08:35 Mask 4 02/24/18 08:30 Mask 4 02/24/18 08:25 Mask 4 02/24/18 08:20 Mask 4 02/24/18 08:15 Mask 4 02/24/18 08:13 Mask 4 02/24/18 08:02 Mask 4 02/24/18 07:10 36.6 76 18 153/92 (112) 94 Room Air Post Procedure Recovery Score Activity: (2) Moves 4 extremities * Respiration: (2) Deep breath/cough Circulation: (2) +/-20% PreAnes Value Consciousness: (2) Fully Awake Oxygen Saturation: (2) > 92% On Room Air Post Anesthesia Score: 10 Discharge Sedation Level of Care: Fast Track Phase II Post Sedation Plan On clinical assessment, the patient appears to have tolerated the sedation without complications. Patient is recovering as anticipated. Patient will continue to be monitored by nursing and may be discharged when sedation discharge criteria are met per below protocol. Upon Completions of procedure and additional 15 minutes continue every 5 minute vital signs and the P.A.R. score; then discharge to a Phase I or Fast Track to Phase II per the following guidelines: * Discharge Patient to appropriate Phase II area if PAR is 8 or greater or return to pre- procedure baseline. The post - procedure orders will be as directed. * If PAR score is less than 8 or not return to pre-procedure baseline then patient will follow Phase I monitoring till PAR is reached for Phase II. The Phase I may be done in procedure room or may call to secure a Phase I area. * If naloxone or flumazenil are used for reversal, hold in Phase I for an additional 60 -120 minutes before discharge to Phase II. Please call the Sedation Physician to re-evaluate and complete post-note for discharge to Phase II area. Do NOT discharge from procedure sedation or Phase 1 until post- sedation evaluation note is complete by procedure /sedation MD Sedation Discharge Instructions to be given to the patient at discharge to home.
--- NOTE | 2018-02-24 09:07 | [facility] Post Operative Brief Note ---
Immediate Operative Summary Operative Date Feb 24, 2018. Pre-Operative Diagnosis Thrombosed Fistula Post-Operative Diagnosis Thrombosed Fistula Procedure(s) Performed Mechanical Thrombectomy left upper arm fistula, Percutaneous Transluminal Angioplasty Venous, Fistulogram Surgeon Dr. Burton Perinatal Specialist Surgeon(s) Dr. Burton Estimated Blood Loss 10 Findings Consistent with Post-Op Diagnosis Specimens None Drains None Anesthesia Type None Complication(s) none Disposition Accompanied Pt To Recover: no Disposition:
--- NOTE | 2018-02-24 09:08 | Discharge Instructions ---
Discharge Instructions Date of Service Feb 24, 2018. Visit Reason for Visit: Clotted Graft -Left Upper Extremity Fistula Discharge Discharge Diagnosis / Problem: Thrombosed left arm herograft Discharge Goals Goal(s): Therapeutic intervention Activity Recommendations Activity Limitations: per Instructions/Follow-up section Anesthesia . Post Anesthesia Instructions: If you have had General Anesthesia or IV Sedation: * Do not drive today. * Resume driving when surgeon permits. * Do not make important decisions or sign legal documents today. * Call surgeon for: 1. Temperature elevations greater than 101 degrees F. 2. Uncontrollable pain. 3. Excessive bleeding. 4. Persistent nausea and vomiting. 5. Medication intolerance (nausea, vomiting or rash). * For nausea and vomiting use only clear liquids such as: tea, soda, bouillon until nausea subsides, then gradually increase diet as tolerated. * If you have any concerns or questions, call your surgeon's office. If physician is unavailable and it is an emergency, call 911 or go to the nearest emergency room. . Instructions / Follow-Up Instructions / Follow-Up Call [phone] with any questions or concerns. SPECIAL CARE INSTRUCTIONS: Medications: * Continue to take your medications as directed. If you have been given a prescription for Plavix, please fill it immediately and take as directed. Incision Care: * Your puncture site may have some bruising and minor swelling for about one week. * You will have a small dressing covering your puncture site. You may remove the dressing after 24 hours and shower. You may let the warm soapy water run over it, but be sure to dry the puncture site well and keep it dry. * DO NOT IMMERSE THE INCISION IN A TUB/POOL/etc. UNTIL HEALED. * Puncture sites should be kept covered with a band-aid until it begins to heal. Restrictions: * Depending on whether you leg or arm was punctured to access the arteries, you will be required to lay flat, hold your arm still, or both, for about 4 hours after the procedure to prevent bleeding. * Limit your activity for the first 48 hours. You may walk and go up and down steps. Avoid excessive bending or movement at the puncture site. Possible Complications: * Excessive Swelling - after blood flow is improved you may notice increased swelling in the lower legs. This is a normal response. This usually depends on the amount of blockages in the leg, how long they have been there prior to your procedure and how much blood flow was restored. Elevating your legs will help to improve this. Please notify our office ([phone] ) if the swelling does not go away after lying in bed overnight. * Infection/Drainage/Bleeding - Drainage or bleeding from the puncture site should be minimal. If you have excessive bleeding or drainage, call our office ([phone]) right away. * Pain - You may experience some mild pain or soreness at your puncture site. If your pain does not improve, please contact our office ([phone]). Call your doctor and seek emergent treatment if you develop: * Temperature above 101 degrees * Any fever or chills * Any redness or purulent drainage from the puncture site * Any new dusky/blue colored toes or feet with coolness or sharp or aching pain. SKIN IRRITATION: * You may experience some redness and/or swelling in the area where radiation was administered. If any skin irritation occurs, please contact your family physician. FOLLOW UP VISIT: Keep any scheduled doctor appointments. Diet Recommendations Recommended Home Diet: resume previous diet Procedures Procedures Performed: Mechanical Thrombectomy left upper arm fistula, Percutaneous Transluminal Angioplasty Venous, Fistulogram Pending Studies Studies pending at discharge: no Medical Emergencies . Who to Call and When: Medical Emergencies: If at any time you feel your situation is an emergency, please call 911 immediately. . Non-Emergent Contact Non-Emergency issues call your: Surgeon . . "Provider Documentation" section prepared by Wilberto Burton. .
--- NOTE | 2018-02-24 09:19 | [facility] Operative Report ---
Operative Report Operative Date Feb 24, 2018. Pre-Operative Diagnosis Thrombosed Fistula Post-Operative Diagnosis Thrombosed Fistula Procedure(s) Performed Mechanical Thrombectomy left upper arm fistula, Percutaneous Transluminal Angioplasty Venous, Fistulogram Surgeon Dr. Burton Senior Investment Manager Surgeon(s) Dr. Burton Estimated Blood Loss 10 Findings good thrill Specimens None Drains None Anesthesia Type Local Complication(s) none Disposition no Indications This is a 77-year-old male with a left upper arm AV fistula. He was found to be thrombosed at dialysis. Mechanical thrombectomy and possible intervention was recommended.I have discussed the risks options and benefits of the procedure with the patient. The patient understands the risks options and benefits and agrees to the procedure. Description of Procedure The patient was taken to the angiogram suite and placed in the supine position. The left arm was then prepped and draped in a sterile manner. Local anesthetic was administered and a percutaneous puncture was then made of the proximal portion of the left arm AV fistula. A 6 Martiniquais sheath was inserted in antegrade fashion. Using 035 wire the fistula was traversed and the wire was passed through the hero graft portion. The proxy AngioJet catheter was inserted and place at the tip of the catheter portion of the hero graft. Mechanical thrombectomy was then performed. Once the catheter was thrombectomized the hand injection showed this to be patent with no residual clot. The proxi catheter was then pulled back and the distal portion of the fistula was thrombectomized. Once this was completed there was a stenosis noted in the midportion of the fistula. This was dilated over an 035 wire with a 6 x 8 balloon. The fistula at that point was widely patent. A retrograde puncture was then made in the distal portion of the fistula. A 6 Martiniquais sheath was inserted. An 035 wire was then passed down through the arterial anastomosis. Again using the proxi catheter, a mechanical thrombectomy was performed to the proximal portion of the fistula. Two passes were done. Hand injection done at that time showed narrowing seen in the proximal portion of the fistula. This was also dilated with a 6 x 8 balloon. The fistula at that point was widely patent with no residual stenosis noted. No residual clot was seen. Good flow was seen through the catheter portion of the hero graft. No further treatment was needed at that point. The sheaths were then pulled and pressure was applied. Adequate hemostasis was obtained. The patient left the angiogram suite in good condition and tolerated the procedure well. I attest to the content of the Intraoperative Record and any orders documented therein. Any exceptions are noted below.
[2018-02-24 09:35] VITALS: BP 171/92; PULSE 73; TEMP 36.6; O2SAT 96
[2018-02-24 10:05] VITALS: BP 159/91; PULSE 71; TEMP 36.6; O2SAT 96
== END 2018-02-24 10:25 | disposition home or self-care (01) ==
LOC: C.ACU 06:22
PROVIDERS: ATTEND Surgery Vascular Surgery
DX: T82.868A Thrombosis due to vascular prosthetic devices, implants and grafts, initial encounter (principal); Y83.8 Other surgical procedures as the cause of abnormal reaction of the patient, or of later complication, without mention of misadventure at the time of the procedure; N18.6 End stage renal disease; E78.00 Pure hypercholesterolemia, unspecified; Z99.2 Dependence on renal dialysis; Z87.891 Personal history of nicotine dependence

== ENCOUNTER → 2018-02-27 | Day surgery (SDC) | payer OTHER, BC ==
[~2018-02-27] VITALS: Ht 167.6 cm; Wt 77.2 kg
[~2018-02-27] MED LIST changes: +ACETLIQ12 PO; +BACIOIN2 TOP; +BENZ2TAB6 PO; -CEFAZOLIN 1000MG IV PUSH 7.5 ML IV SCH; +CEFAZOLIN IV 1,000 MG in DEXTROSE 5% 50ML 50 ML IV ONE; +CEFAZOLIN SOD 1000MG/7.5 ML IV PUSH IV ONE; -D5W AND 1/4NSS 1000 ML IV SCH; +FENTANYL CITRATE INJ 50 MCG/1 ML 2 ML VIAL IV ONE; +FENTANYL CITRATE INJ 50 MCG/1 ML 2 ML VIAL ONE; +HEPARIN SOD (PORCINE) 5000 UNIT/ML 1 ML VIAL IV ONE; +HEPARIN SOD (PORCINE) 5000 UNIT/ML 1 ML VIAL ONE; +HYDCR1CL TOP; +LIDOCAINE HCL 1% 20 ML VIAL SQ ONE; +MIDAZOLAM HCL 1 MG/ML 2ML VIAL IV ONE; +MIDAZOLAM HCL 1 MG/ML 2ML VIAL ONE; +MULT-513 PO; +OXYC2.5T3 PO; +POLY335019 PO; -POLYSOL21 OP; +RANI150T3 PO; +TERBINAFINE 1% TP; +[UNRECOGNIZED DRUG - OTHER] PO
--- NOTE | 2018-02-27 08:56 | History and Physical ---
History & Physical Date of Service Feb 27, 2018. History & Physical Chief Complaint: End stage renal disease, thrombosed left upper extremity Herograft History of Present Illness The patient is a 74 year old male with ESRD on HD thru L upper extremity herograft. He had it declotted last week. He ran well on Saturday but clotted again yesterday. Pt denies OCHOA, fever, chills, chest pain, SOB, abd pain, N/V, rest pain, claudication, other complaints. Allergies No Known Allergies (Verified , 05/13/15) NKDA Surgical / Medical History Hx Cardiac Surgery: No Hx Abdominal Surgery: No Hx Cancer Surgery: No Hx Thoracic Surgery: No Hx Orthopedic: No Hx Urinary Tract Surgery: No Past Medical/Surgical History: Cancer (thyroid), High Cholesterol, Kidney Disease Family History Noncontributory Social History Smoking Status: Former Smoker (quit 8 yr ago) Hx Tobacco Use In Past Year?: No Hx Alcohol Use - Type & Amnt: No Hx Substance Use -Type & Amnt: No Review of Systems Constitutional: No chills, No malaise Skin: No change in color Eyes: No visual changes ENMT: No sore throat Respiratory: No LUNA, No cough, No hemoptysis, No short of breath Cardiovascular: No chest pain, No edema, No intermittent claudication, No palpitations, No syncope Gastrointestinal: No abdominal pain, No nausea, No vomiting Neurologic: No dizziness, No headache, No numbness, No tingling Physical Exam: Constitutional: General Apperance: well-nourished, well-developed Level of Distress: NAD, chronically ill Ambulation: ambulating normally Psychiatric: Mental Status: active & alert, normal mood, normal affect Orientation: oriented except where noted, to time, to place, to person Memory: recent memory normal, remote memory normal (somewhat vague) Head: normocephalic, atraumatic Eyes: EOM: EOMI ENMT: normal ENT inspection, hearing grossly normal Neck: supple, trachea midline Lungs: Respiratory effort: no dyspnea Auscultation: no wheezing, no rales/crackles, no rhonchi, decreased breath sounds Cardiovascular: Apical Impulse: not displaced Heart Auscultation: RRR, no murmurs, no rubs, no gallops Peripheral Pulses: Pulses: full and equal, in all extremities except if noted Bruits: none appreciated Carotid Pulse: normal on the left, normal on the right Brachial Pulses: normal on the left, normal on the right Radial Pulse: normal on the left, normal on the right, pertinent finding , no thrill present in herograft Femoral Pulse: normal on the left, normal on the right Posterior Tibialis Pulse: normal on the left, normal on the right Dorsalis Pedis Pulse: normal on the left, normal on the right Abdomen: Inspection & Palpation: soft, non-distended, no tenderness, guarding & rebound Musculoskeletal: normal strength (5/5 throughout), normal tone Extremities: Upper Right: no cyanosis, no edema, no varicosities Upper Left: no cyanosis, no edema, no varicosities, thrill present Lower Right: no cyanosis, no edema, no varicosities, Lower Left: no cyanosis, no edema, no varicosities Neurologic: Cranial Nerves: grossly intact Sensation: grossly intact ASSESSMENT and PLAN: Thrombosed herograft ESRD on HD Plan: Pt admitted for an insertion of a femoral permcath. I have discussed the risks options and benefits of the procedure with the patient. The patient understands the risks options and benefits and agrees to the procedure.
[2018-02-27 12:46] VITALS: BP 138/73; PULSE 73; TEMP 36.5; O2SAT 96; Ht 167.6 cm; Wt 77.2 kg
--- NOTE | 2018-02-27 12:53 | Pre Sedation Assessment ---
Pre Sedation Assessment General Date of Sedation: Feb 27, 2018. Review Cardiovascular: regular rate, rhythm Lungs: lungs clear Pre-Sedation Airway Assessment Smoking Status: Former Smoker Hx of Sleep Apnea: No Short Thick Neck: No Thyro-mental Distance: < or =3 Finger Breadths Oral Cavity: Dental Abnormalities Mallampati Classification: Class II ASA Classification: Class III NPO Status Date of Last Intake of Fluids: Feb 27, 2018 Time of Last Intake of Fluids: 0000 Date of Last Intake of Solids: Feb 27, 2018 Time of Last Intake of Solids: 1700 Procedure Planning Contraindications for Sedation: None Current Medications Reviewed: Yes Notes The planned sedation has been discussed with the patient. Informed Consent was obtained. I have identified the patient, determined the appropriateness of sedation and have assessed the patient immediately prior to the procedure. All medicine(s) and interventions are by my order.
--- NOTE | 2018-02-27 14:21 | Discharge Instructions ---
Discharge Instructions Date of Service Feb 27, 2018. Visit Reason for Visit: Clotted Graft Discharge Discharge Diagnosis / Problem: Thrombosed herograft Discharge Goals Goal(s): Therapeutic intervention Activity Recommendations Activity Limitations: per Instructions/Follow-up section Anesthesia . May use permcath for dialysis Post Anesthesia Instructions: If you have had General Anesthesia or IV Sedation: * Do not drive today. * Resume driving when surgeon permits. * Do not make important decisions or sign legal documents today. * Call surgeon for: 1. Temperature elevations greater than 101 degrees F. 2. Uncontrollable pain. 3. Excessive bleeding. 4. Persistent nausea and vomiting. 5. Medication intolerance (nausea, vomiting or rash). * For nausea and vomiting use only clear liquids such as: tea, soda, bouillon until nausea subsides, then gradually increase diet as tolerated. * If you have any concerns or questions, call your surgeon's office. If physician is unavailable and it is an emergency, call 911 or go to the nearest emergency room. . Instructions / Follow-Up Instructions / Follow-Up Call [phone] with any questions or concerns. SPECIAL CARE INSTRUCTIONS: Medications: * Continue to take your medications as directed. If you have been given a prescription for Plavix, please fill it immediately and take as directed. Incision Care: * Your puncture site may have some bruising and minor swelling for about one week. * You will have a small dressing covering your puncture site. You may remove the dressing after 24 hours and shower. You may let the warm soapy water run over it, but be sure to dry the puncture site well and keep it dry. * DO NOT IMMERSE THE INCISION IN A TUB/POOL/etc. UNTIL HEALED. * Puncture sites should be kept covered with a band-aid until it begins to heal. Restrictions: * Depending on whether you leg or arm was punctured to access the arteries, you will be required to lay flat, hold your arm still, or both, for about 4 hours after the procedure to prevent bleeding. * Limit your activity for the first 48 hours. You may walk and go up and down steps. Avoid excessive bending or movement at the puncture site. Possible Complications: * Excessive Swelling - after blood flow is improved you may notice increased swelling in the lower legs. This is a normal response. This usually depends on the amount of blockages in the leg, how long they have been there prior to your procedure and how much blood flow was restored. Elevating your legs will help to improve this. Please notify our office ([phone] ) if the swelling does not go away after lying in bed overnight. * Infection/Drainage/Bleeding - Drainage or bleeding from the puncture site should be minimal. If you have excessive bleeding or drainage, call our office ([phone]) right away. * Pain - You may experience some mild pain or soreness at your puncture site. If your pain does not improve, please contact our office ([phone]). Call your doctor and seek emergent treatment if you develop: * Temperature above 101 degrees * Any fever or chills * Any redness or purulent drainage from the puncture site * Any new dusky/blue colored toes or feet with coolness or sharp or aching pain. SKIN IRRITATION: * You may experience some redness and/or swelling in the area where radiation was administered. If any skin irritation occurs, please contact your family physician. FOLLOW UP VISIT: Keep any scheduled doctor appointments. Diet Recommendations Recommended Home Diet: resume previous diet Procedures Procedures Performed: Insertion of Perm Catheter, Right Femoral Approach, Ultrasound Localization of Right Femoral Vein, Fluoroscopy for positioning, Moderate Sedation from 1408 - Pending Studies Studies pending at discharge: no Medical Emergencies . Who to Call and When: Medical Emergencies: If at any time you feel your situation is an emergency, please call 911 immediately. . Non-Emergent Contact Non-Emergency issues call your: Surgeon . . "Provider Documentation" section prepared by Wilberto Burton. .
--- NOTE | 2018-02-27 14:22 | [facility] Post Operative Brief Note ---
Immediate Operative Summary Operative Date Feb 27, 2018. Pre-Operative Diagnosis Thrombosed Fistula Post-Operative Diagnosis Thrombosed Fistula Procedure(s) Performed Insertion of Perm Catheter, Right Femoral Approach, Ultrasound Localization of Right Femoral Vein, Fluoroscopy for positioning, Moderate Sedation from 1408 - [address] Burton Marketing Intern Surgeon(s) Dr. Pratt Estimated Blood Loss 3cc Findings Consistent with Post-Op Diagnosis Specimens NONE Drains None Anesthesia Type IV Sedat Cons RN Only Disposition Accompanied Pt To Recover: no Disposition:
--- NOTE | 2018-02-27 14:27 | [facility] Operative Report ---
Operative Report Operative Date Feb 27, 2018. Pre-Operative Diagnosis Thrombosed Fistula Post-Operative Diagnosis Thrombosed Fistula Procedure(s) Performed Insertion of Perm Catheter, Right Femoral Approach, Ultrasound Localization of Right Femoral Vein, Fluoroscopy for positioning, Moderate Sedation from 1408 - [address] Burton Food Service Utility Worker Surgeon(s) Dr. Pratt Estimated Blood Loss 3cc Findings Tip of Perm Cath in distal IVC Specimens NONE Drains None Anesthesia Type IV Sedat Cons RN Only Complication(s) none Disposition Indications Mr. Jeffries is a 77 y/o male with ESRd on HD MWF, whose HERO graft clotted earlier this week. He underwent thrombectomy and had one good run of dialysis on February 24, however on February 26 his graft was found to be thrombosed. He was recommended Perm Cath placement and future thrombectomy. He is here today for Perm Cath placement. Description of Procedure Patient was takent to the angio suite and placed in the supine position. The right groin was prepped and draped in a sterile manner. Local anesthesia was then administered to the appropriate areas of the neck and chest wall. Ultrasound was then used to locate the right femoral vein. The vein compressed easily, had no filing defects, and was patent. The vein was then punctured under direct ultrasound imaging. A guidewire was then passed centrally under fluoroscopic imaging. A stab wound was then made in the anterior thigh and a 27 cm permcath was passed from the stab wound on the anterior thigh to the puncture site in the groin. The puncture site was then dilated till the 14Fr peel away sheath was inserted. The permcath was then inserted through the sheath to a central position in the distal inferior vena cava. The peel away sheath was then removed. The catheter was then sutured in place using nylon sutures. The puncture was then closed using a 4-0 Vicryl subcuticular suture. Dermabond was used for a dressing on the puncture site. Both ports aspirated and flushed easily and were then packed with heparin. A sterile dressing was applied to the catheter. The patient left the angio suite in good condition and tolerated the procedure well. I attest to the content of the Intraoperative Record and any orders documented therein. Any exceptions are noted below.
[2018-02-27 14:40] VITALS: BP 135/61; PULSE 79; TEMP 36.6; O2SAT 94
[2018-02-27 15:20] VITALS: BP 125/63; PULSE 73; TEMP 36.6; O2SAT 93
== END | disposition home or self-care (01) ==
LOC: C.ACU 12:21
PROVIDERS: ATTEND Surgery Vascular Surgery
DX: T82.868A Thrombosis due to vascular prosthetic devices, implants and grafts, initial encounter (principal); N18.6 End stage renal disease; Z99.2 Dependence on renal dialysis; Y84.8 Other medical procedures as the cause of abnormal reaction of the patient, or of later complication, without mention of misadventure at the time of the procedure; Z85.850 Personal history of malignant neoplasm of thyroid; E78.00 Pure hypercholesterolemia, unspecified; Z87.891 Personal history of nicotine dependence

== ENCOUNTER 2018-03-03 06:22 | Day surgery (SDC) | payer OTHER, BC ==
[2018-02-28 12:46] VITALS: BMI 25.0
--- NOTE | 2018-02-28 13:18 | PAT Medication Instructions ---
Service Date Feb 28, 2018. Current Home Medication List Acetaminophen (Tylenol), 325 MG PO Q6 PRN for Pain or Fever Atorvastatin (Lipitor), 20 MG PO HS B-Complex W/ C & Folic Acid (Folbee Plus), 1 TAB PO QAM Benztropine Mesylate (Benztropine Mesylate), 1 MG PO BID Calcium Acetate (Phoslo 667 Mg), 1 TABS PO BIDM Calcium/Vitamin D (Os-Declan 500 Plus D), 1 TAB PO BID Diphenhydramine Hcl (Diphenhist), 1-2 TABS PO Q6 PRN for Itching Furosemide (Lasix), 80 MG PO BID Haloperidol (Haloperidol), 5 MG PO HS Haloperidol Decanoate (Haldol Decanoate 100), 25 MG IM MONTHLY Levothyroxine Sodium (Levothyroxine Sodium), 200 MG PO QAM Oxycodone/Acetaminophen 2.5MG/325MG (Percocet 2.5MG/325MG), 1 TAB PO Q6H PRN for N Polyethylene Glycol 3350 (Miralax), 17 GM PO DAILY PRN for Constipation Ranitidine Hcl (Zantac), 150 TAB PO BID PRN for Itching Trihexyphenidyl HCl (Trihexyphenidyl HCl), 2 MG PO HS [Qc Cold And Flu], 30 ML PO Q4H 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 Instructions For Your Scheduled Surgery -Continue as directed: Haloperidol Decanoate (Haldol Decanoate 100), 25 MG IM MONTHLY - Hold the following medications 24 hours prior to surgery: Furosemide (Lasix), 80 MG PO BID - Hold the following medications the morning of surgery: B-Complex W/ C & Folic Acid (Folbee Plus), 1 TAB PO QAM Benztropine Mesylate (Benztropine Mesylate), 1 MG PO BID Calcium Acetate (Phoslo 667 Mg), 1 TABS PO BIDM Calcium/Vitamin D (Os-Declan 500 Plus D), 1 TAB PO BID Diphenhydramine Hcl (Diphenhist), 1-2 TABS PO Q6 PRN for Itching Polyethylene Glycol 3350 (Miralax), 17 GM PO DAILY PRN for Constipation [Qc Cold And Flu], 30 ML PO Q4H PRN for RN - Take the following medications the morning of surgery with a sip of water: Acetaminophen (Tylenol), 325 MG PO Q6 PRN for Pain or Fever (if needed, can be taken up to four hours before surgery) Levothyroxine Sodium (Levothyroxine Sodium), 200 MG PO QAM Oxycodone/Acetaminophen 2.5MG/325MG (Percocet 2.5MG/325MG), 1 TAB PO Q6H PRN ( if needed, can be taken up to four hours before surgery) Ranitidine Hcl (Zantac), 150 TAB PO BID PRN for Itching (if needed) - Take the following medications as scheduled the night before surgery: Acetaminophen (Tylenol), 325 MG PO Q6 PRN for Pain or Fever (if needed) Atorvastatin (Lipitor), 20 MG PO HS Benztropine Mesylate (Benztropine Mesylate), 1 MG PO BID Calcium Acetate (Phoslo 667 Mg), 1 TABS PO BIDM Calcium/Vitamin D (Os-Declan 500 Plus D), 1 TAB PO BID Diphenhydramine Hcl (Diphenhist), 1-2 TABS PO Q6 PRN for Itching (if needed) Haloperidol (Haloperidol), 5 MG PO HS Oxycodone/Acetaminophen 2.5MG/325MG (Percocet 2.5MG/325MG), 1 TAB PO Q6H PRN ( if needed) Polyethylene Glycol 3350 (Miralax), 17 GM PO DAILY PRN for Constipation (if needed) Ranitidine Hcl (Zantac), 150 TAB PO BID PRN for Itching (if needed) Trihexyphenidyl HCl (Trihexyphenidyl HCl), 2 MG PO HS [Qc Cold And Flu], 30 ML PO Q4H PRN for RN (if needed) If you have any questions please call us at [phone] or [phone] or [phone]
[~2018-03-03] VITALS: Ht 175.3 cm; Wt 77.7 kg
[~2018-03-03 06:22] MED LIST changes: -ACETLIQ12 PO; -BACIOIN2 TOP; -BENZ2TAB6 PO; +CEFAZOLIN 1000MG IV PUSH 7.5 ML IV SCH; -CEFAZOLIN IV 1,000 MG in DEXTROSE 5% 50ML 50 ML IV ONE; -CEFAZOLIN SOD 1000MG/7.5 ML IV PUSH IV ONE; -D5W AND 1/4NSS 1,000 ML IV SCH; -FENTANYL CITRATE INJ 50 MCG/1 ML 2 ML VIAL IV ONE; -FENTANYL CITRATE INJ 50 MCG/1 ML 2 ML VIAL ONE; -HEPARIN SOD (PORCINE) 5000 UNIT/ML 1 ML VIAL IV ONE; -HEPARIN SOD (PORCINE) 5000 UNIT/ML 1 ML VIAL ONE; -HYDCR1CL TOP; -LIDOCAINE HCL 1% 20 ML VIAL SQ ONE; -MIDAZOLAM HCL 1 MG/ML 2ML VIAL IV ONE; -MIDAZOLAM HCL 1 MG/ML 2ML VIAL ONE; -MULT-513 PO; -OXYC-57 PO; +SODIUM CHLORIDE 0.9% 1000ML 1,000 ML IV SCH; -TERBINAFINE 1% TP
[2018-03-03 06:45] VITALS: BP 107/64; PULSE 82; TEMP 36.5; O2SAT 91; Ht 175.3 cm; Wt 77.7 kg
[2018-03-03] MEDS ORDERED: THROMBIN FOR SOLN 20000 UNIT KIT ONE (06:52)
[2018-03-03] MEDS ORDERED: BUPIVACAINE/EPINEPHRINE 0.5% MPF 1:200,000 30 ML VIAL ONE (06:52)
[2018-03-03] MEDS ORDERED: GELATIN SPONGE 12-7MM ONE (06:52)
[2018-03-03] MEDS ORDERED: HEPARIN SOD (PORCINE) 1000 UNIT/ML 10 ML VIAL ONE (06:53)
[2018-03-03] MEDS ORDERED: LIDOCAINE HCL 1% 20 ML VIAL ONE (06:53)
[2018-03-03 07:19] LABS: HEMATOCRIT 35.8 % (42-52); HEMOGLOBIN 11.8 g/dL (14.0-18.0)
[2018-03-03] MEDS ORDERED: FENTANYL CITRATE INJ 50 MCG/1 ML 2 ML VIAL ONE (07:30)
[2018-03-03] MEDS ORDERED: LIDOCAINE HCL 2% 2 ML VIAL (20MG/ML) ONE (07:30)
[2018-03-03] MEDS ORDERED: PROPOFOL IV EMULSION 10 MG/ML 20 ML VIAL IV ONE (07:30)
[2018-03-03 07:33] LABS: CALCIUM 8.9 mg/dl (8.5-10.1); CREATININE 10.1 mg/dl (0.60-1.40); POTASSIUM 4.5 mmol/L (3.5-5.1)
--- NOTE | 2018-03-03 07:41 | History and Physical ---
History & Physical Date of Service Mar 03, 2018. History & Physical Chief Complaint: End stage renal disease, thrombosed left upper extremity Herograft History of Present Illness The patient is a 74 year old male with ESRD on HD thru L upper extremity herograft. He had it declotted last week. He ran well on Saturday but clotted again yesterday. Pt denies OCHOA, fever, chills, chest pain, SOB, abd pain, N/V, rest pain, claudication, other complaints. Allergies No Known Allergies (Verified , 05/13/15) NKDA Surgical / Medical History Hx Cardiac Surgery: No Hx Abdominal Surgery: No Hx Cancer Surgery: No Hx Thoracic Surgery: No Hx Orthopedic: No Hx Urinary Tract Surgery: No Past Medical/Surgical History: Cancer (thyroid), High Cholesterol, Kidney Disease Family History Noncontributory Social History Smoking Status: Former Smoker (quit 8 yr ago) Hx Tobacco Use In Past Year?: No Hx Alcohol Use - Type & Amnt: No Hx Substance Use -Type & Amnt: No Review of Systems Constitutional: No chills, No malaise Skin: No change in color Eyes: No visual changes ENMT: No sore throat Respiratory: No LUNA, No cough, No hemoptysis, No short of breath Cardiovascular: No chest pain, No edema, No intermittent claudication, No palpitations, No syncope Gastrointestinal: No abdominal pain, No nausea, No vomiting Neurologic: No dizziness, No headache, No numbness, No tingling Physical Exam: Constitutional: General Apperance: well-nourished, well-developed Level of Distress: NAD, chronically ill Ambulation: ambulating normally Psychiatric: Mental Status: active & alert, normal mood, normal affect Orientation: oriented except where noted, to time, to place, to person Memory: recent memory normal, remote memory normal (somewhat vague) Head: normocephalic, atraumatic Eyes: EOM: EOMI ENMT: normal ENT inspection, hearing grossly normal Neck: supple, trachea midline Lungs: Respiratory effort: no dyspnea Auscultation: no wheezing, no rales/crackles, no rhonchi, decreased breath sounds Cardiovascular: Apical Impulse: not displaced Heart Auscultation: RRR, no murmurs, no rubs, no gallops Peripheral Pulses: Pulses: full and equal, in all extremities except if noted Bruits: none appreciated Carotid Pulse: normal on the left, normal on the right Brachial Pulses: normal on the left, normal on the right Radial Pulse: normal on the left, normal on the right, pertinent finding , no thrill present in herograft Femoral Pulse: normal on the left, normal on the right Posterior Tibialis Pulse: normal on the left, normal on the right Dorsalis Pedis Pulse: normal on the left, normal on the right Abdomen: Inspection & Palpation: soft, non-distended, no tenderness, guarding & rebound Musculoskeletal: normal strength (5/5 throughout), normal tone Extremities: Upper Right: no cyanosis, no edema, no varicosities Upper Left: no cyanosis, no edema, no varicosities, thrill present Lower Right: no cyanosis, no edema, no varicosities, Lower Left: no cyanosis, no edema, no varicosities Neurologic: Cranial Nerves: grossly intact Sensation: grossly intact ASSESSMENT and PLAN: Thrombosed herograft ESRD on HD Plan: Pt admitted for a revision of his left arm herograft. I have discussed the risks options and benefits of the procedure with the patient's brother. The patient's brother understands the risks options and benefits and agrees to the procedure.
[2018-03-03] MEDS ORDERED: ATROPINE SULFATE 0.1 MG/ML 5ML SYR IV PRN (08:30)
[2018-03-03] MEDS ORDERED: EpHEDrine SULFATE INJ 50 MG/ML AMP IV PRN (08:30)
[2018-03-03] MEDS ORDERED: SURGICEL ABSORB HEMOSTAT 2IN X 14IN TOP ONE (09:06)
--- NOTE | 2018-03-03 09:16 | [facility] Post Operative Brief Note ---
Immediate Operative Summary Operative Date Mar 03, 2018. Pre-Operative Diagnosis End stage renal disease, thrombosed left upper extremity Herograft Post-Operative Diagnosis Thrombosed left upperarm herograft Procedure(s) Performed Revision Left Arm Arteriovenous Fistula with Interposition Graft and Thrombectomy Surgeon Dr. Burton Maintenance Engineer Oil Field Surgeon(s) None Estimated Blood Loss 75 ml Findings Consistent with Post-Op Diagnosis Specimens None per Surgeon Drains None Anesthesia Type MAC Complication(s) none Disposition Accompanied Pt To Recover: no Disposition: Recovery Room / PACU
[2018-03-03] MEDS ORDERED: OXYC-57 PO (09:22)
--- NOTE | 2018-03-03 09:24 | Discharge Instructions ---
Discharge Instructions Date of Service Mar 03, 2018. Visit Reason for Visit: Thrombosed Arteriovenous Fistula Left Arm Discharge Discharge Diagnosis / Problem: Thrombosed left upper arm fistula Discharge Goals Goal(s): Therapeutic intervention Activity Recommendations Activity Limitations: per Instructions/Follow-up section Anesthesia . Post Anesthesia Instructions: If you have had General Anesthesia or IV Sedation: * Do not drive today. * Resume driving when surgeon permits. * Do not make important decisions or sign legal documents today. * Call surgeon for: 1. Temperature elevations greater than 101 degrees F. 2. Uncontrollable pain. 3. Excessive bleeding. 4. Persistent nausea and vomiting. 5. Medication intolerance (nausea, vomiting or rash). * For nausea and vomiting use only clear liquids such as: tea, soda, bouillon until nausea subsides, then gradually increase diet as tolerated. * If you have any concerns or questions, call your surgeon's office. If physician is unavailable and it is an emergency, call 911 or go to the nearest emergency room. . Instructions / Follow-Up Instructions / Follow-Up Call [phone] to schedule a follow up appointment if one not already scheduled. ACTIVITY RECOMMENDATIONS: See Above SPECIAL CARE INSTRUCTIONS: Call your doctor if: * Temperature above 101 degrees * Pain not relieved by pain medicine ordered * There is increased drainage or redness from any incision * You have any unanswered questions or concerns. Diet Recommendations Recommended Home Diet: resume previous diet Procedures Procedures Performed: Revision Left Arm Arteriovenous Fistula with Interposition Graft and Thrombectomy Pending Studies Studies pending at discharge: no Medical Emergencies . Who to Call and When: Medical Emergencies: If at any time you feel your situation is an emergency, please call 911 immediately. . Non-Emergent Contact Non-Emergency issues call your: Surgeon . . "Provider Documentation" section prepared by Wilberto Burton. .
[2018-03-03 10:00] VITALS: BP 108/64; PULSE 88; TEMP 37; O2SAT 93
--- NOTE | 2018-03-03 10:10 | Anesthesiology Progress Note ---
Anesthesia Post Op Note Date & Time Mar 03, 2018 at 10:10 Vital Signs Pain Intensity: 0 Vital Signs Past 12 Hours Date Time Temp Pulse Resp B/P (MAP) Pulse Ox O2 Delivery O2 Flow Rate FiO2 03/03/18 09:50 36.2 87 20 115/69 92 Nasal Cannula 2 03/03/18 09:40 88 15 103/70 92 Nasal Cannula 2 03/03/18 09:30 85 17 117/63 94 Nasal Cannula 2 03/03/18 09:23 36.1 90 13 102/60 90 Nasal Cannula 2 03/03/18 06:45 36.5 82 20 107/64 (78) 91 Room Air Notes Mental Status: alert / awake / arousable, participated in evaluation Pt Amnestic to Procedure: Yes Nausea / Vomiting: adequately controlled Pain: adequately controlled Airway Patency, RR, SpO2: stable & adequate BP & HR: stable & adequate Hydration State: stable & adequate Anesthetic Complications: no major complications apparent
[2018-03-03 10:27] VITALS: BP 95/62; PULSE 92; O2SAT 93
[2018-03-03 11:00] VITALS: BP 97/62; PULSE 90; TEMP 36.9; O2SAT 92
--- NOTE | 2018-03-03 11:41 | OPERATIVE REPORT ---
DATE OF OPERATION: 03/03/2018 PREOPERATIVE DIAGNOSIS: Thrombosed left upper arm HeRO graft. POSTOPERATIVE DIAGNOSIS: Same. PROCEDURE: Revision of left upper arm fistula with interposition 6 mm Propaten graft with thrombectomy. SURGEON: Dr. Burton. ANESTHETIC: MAC. PROCEDURE INDICATIONS: The patient is a 77-year-old gentleman with a left upper extremity HeRO graft. When he came in thrombosed last weekend, a PermCath was inserted for dialysis purposes. He was brought back today for revision of his fistula with thrombectomy. The patient's brother understood the risks, options and benefits and agreed to have this procedure. The patient was taken to the operating room and placed in the supine position. After the left arm was prepped and draped in a sterile manner, local anesthetic was administered over the proximal end of the old graft in the distal end just beyond the rings of the HeRO graft. A longitudinal incision was made over the arterial end of the graft. This was carried down to where the proximal portion of the fistula was seen. He had a good pulsation at that level. This was then isolated. A transverse incision was made in the left upper arm. This was carried down again where the old graft was identified. It was isolated at that level. Local anesthesia was then administered lateral to the old graft. A subcutaneous tunnel was made and a new 6-mm Propaten graft standard wall was then passed. The proximal portion was then transected. The plug of hematoma was removed. Excellent flow was seen. An end-to-end anastomosis was then accomplished with a CV5 [place]-Shivam suture in the usual vascular fashion. Once this was completed, the graft was flushed distally. Excellent flow was seen. It was then flushed out proximally with heparinized saline and reclamped just at the arterial anastomosis, and the distal end of the graft just before the rings of the HeRO graft was then transected. Using a #3 Ayla catheter, the HeRO graft catheter was thrombectomized. This was done without difficulty. Excellent backbleeding was seen. When this was completed, both the old and the new graft were trimmed to the appropriate length and an end-to-end anastomosis was accomplished again with a CV5 [place]-Shivam suture in the usual vascular fashion. Prior to completing the closure, backbleeding and forward bleeding was allowed to occur. Final few sutures were then placed and securely tied. Clamps were then removed. Excellent flow was seen through the fistula. At that point, the wounds were inspected. Adequate hemostasis was noted. Once adequate hemostasis was obtained, the wound was then closed in the usual fashion using a 3-0 Vicryl suture for the subcutaneous layer and chris for the skin. Sterile dressings were applied to the wound. The patient left the operating room in satisfactory condition and tolerated the procedure well. I attest to the content of the Intraoperative Record and any orders documented therein. Any exception s are noted below.
== END 2018-03-03 11:28 | disposition home or self-care (01) ==
LOC: C.ACU 06:22
PROVIDERS: ATTEND Surgery Vascular Surgery
DX: T82.868A Thrombosis due to vascular prosthetic devices, implants and grafts, initial encounter (principal); Y83.8 Other surgical procedures as the cause of abnormal reaction of the patient, or of later complication, without mention of misadventure at the time of the procedure; I10 Essential (primary) hypertension; F20.9 Schizophrenia, unspecified

== ENCOUNTER → 2018-04-07 | Day surgery (SDC) | payer OTHER, BC ==
[~2018-04-07] VITALS: Ht 167.6 cm; Wt 77.5 kg
[~2018-04-07] MED LIST changes: -CEFAZOLIN 1000MG IV PUSH 7.5 ML IV SCH; +FENTANYL CITRATE INJ 50 MCG/1 ML 2 ML VIAL ONE; +LIDOCAINE HCL 1% 20 ML VIAL ONE; +LIDOCAINE HCL 1% 20 ML VIAL SQ ONE; +MIDAZOLAM HCL 1 MG/ML 2ML VIAL ONE; +OXYC-57 PO; -SODIUM CHLORIDE 0.9% 1000ML 1,000 ML IV SCH
--- NOTE | 2018-04-07 05:53 | History and Physical ---
History & Physical Date of Service April 07, 2018. History & Physical Chief Complaint: End stage renal disease, functioning left upper extremity Herograft History of Present Illness The patient is a 74 year old male with ESRD on HD thru L upper extremity herograft. He had a revision done on his herograft and it is now working well. Pt denies OCHOA, fever, chills, chest pain, SOB, abd pain, N/V, rest pain, claudication, other complaints. Allergies No Known Allergies (Verified , 05/13/15) NKDA Surgical / Medical History Hx Cardiac Surgery: No Hx Abdominal Surgery: No Hx Cancer Surgery: No Hx Thoracic Surgery: No Hx Orthopedic: No Hx Urinary Tract Surgery: No Past Medical/Surgical History: Cancer (thyroid), High Cholesterol, Kidney Disease Family History Noncontributory Social History Smoking Status: Former Smoker (quit 8 yr ago) Hx Tobacco Use In Past Year?: No Hx Alcohol Use - Type & Amnt: No Hx Substance Use -Type & Amnt: No Review of Systems Constitutional: No chills, No malaise Skin: No change in color Eyes: No visual changes ENMT: No sore throat Respiratory: No LUNA, No cough, No hemoptysis, No short of breath Cardiovascular: No chest pain, No edema, No intermittent claudication, No palpitations, No syncope Gastrointestinal: No abdominal pain, No nausea, No vomiting Neurologic: No dizziness, No headache, No numbness, No tingling Physical Exam: Constitutional: General Apperance: well-nourished, well-developed Level of Distress: NAD, chronically ill Ambulation: ambulating normally Psychiatric: Mental Status: active & alert, normal mood, normal affect Orientation: oriented except where noted, to time, to place, to person Memory: recent memory normal, remote memory normal (somewhat vague) Head: normocephalic, atraumatic Eyes: EOM: EOMI ENMT: normal ENT inspection, hearing grossly normal Neck: supple, trachea midline Lungs: Respiratory effort: no dyspnea Auscultation: no wheezing, no rales/crackles, no rhonchi, decreased breath sounds Cardiovascular: Apical Impulse: not displaced Heart Auscultation: RRR, no murmurs, no rubs, no gallops Peripheral Pulses: Pulses: full and equal, in all extremities except if noted Bruits: none appreciated Carotid Pulse: normal on the left, normal on the right Brachial Pulses: normal on the left, normal on the right Radial Pulse: normal on the left, normal on the right, pertinent finding , good thrill present in herograft Femoral Pulse: normal on the left, normal on the right Posterior Tibialis Pulse: normal on the left, normal on the right Dorsalis Pedis Pulse: normal on the left, normal on the right Abdomen: Inspection & Palpation: soft, non-distended, no tenderness, guarding & rebound Musculoskeletal: normal strength (5/5 throughout), normal tone Extremities: Upper Right: no cyanosis, no edema, no varicosities Upper Left: no cyanosis, no edema, no varicosities, thrill present Lower Right: no cyanosis, no edema, no varicosities, Lower Left: no cyanosis, no edema, no varicosities Neurologic: Cranial Nerves: grossly intact Sensation: grossly intact ASSESSMENT and PLAN: Functioning herograft ESRD on HD Plan: Pt admitted for removal of his permcath. I have discussed the risks options and benefits of the procedure with the patient's brother. The patient's brother understands the risks options and benefits and agrees to the procedure.
[2018-04-07 06:45] VITALS: BP 121/69; PULSE 68; TEMP 36.7; O2SAT 95; BMI 27.0
[2018-04-07 07:04] VITALS: Ht 167.6 cm; Wt 77.5 kg
--- NOTE | 2018-04-07 08:10 | [facility] Operative Report ---
Operative Report Operative Date April 07, 2018. Pre-Operative Diagnosis Functioning Herograft Post-Operative Diagnosis Functioning Herograft Procedure(s) Performed Removal of Femoral Perm Catheter Surgeon Dr. Burton Orthopedic Shoe Maker Surgeon(s) None Estimated Blood Loss 0 Findings Catheter and cuff all removed Specimens a: Explant Perm Catheter Drains None Anesthesia Type None Complication(s) none Disposition no Indications This is a 77-year-old gentleman with a hero graft in place in the left arm. This was revised and is now functioning well. It was recommended to remove the PermCath.I have discussed the risks options and benefits of the procedure with the patient. The patient understands the risks options and benefits and agrees to the procedure. Description of Procedure The patient was taken to the angio suite and placed in the supine position. The right groin and catheter were prepped and draped in a sterile manner. Local anesthesia was then accomplished. Using sharp and blunt dissection, the cuff of the permcath was freed up from the surrounding fibrous tissue. The permcath and cuff were completely removed. Pressure was then applied and adequate hemostasis was obtained. A sterile dressing was then applied. The patient left the angio suite in good condition and tolerated the procedure well. I attest to the content of the Intraoperative Record and any orders documented therein. Any exceptions are noted below.
--- NOTE | 2018-04-07 08:12 | Discharge Instructions ---
Discharge Instructions Date of Service April 07, 2018. Visit Reason for Visit: End Stage Renal Disease, Functioning Herograft Discharge Discharge Diagnosis / Problem: Functioning permcath, end stage renal disease Discharge Goals Goal(s): Therapeutic intervention Activity Recommendations Activity Limitations: resume your previous activity Shower/Bathe: tomorrow Anesthesia . Post Anesthesia Instructions: If you have had General Anesthesia or IV Sedation: * Do not drive today. * Resume driving when surgeon permits. * Do not make important decisions or sign legal documents today. * Call surgeon for: 1. Temperature elevations greater than 101 degrees F. 2. Uncontrollable pain. 3. Excessive bleeding. 4. Persistent nausea and vomiting. 5. Medication intolerance (nausea, vomiting or rash). * For nausea and vomiting use only clear liquids such as: tea, soda, bouillon until nausea subsides, then gradually increase diet as tolerated. * If you have any concerns or questions, call your surgeon's office. If physician is unavailable and it is an emergency, call 911 or go to the nearest emergency room. . Instructions / Follow-Up Instructions / Follow-Up Call [phone] with any questions or concerns. May remove groin dressing tomorrow SPECIAL CARE INSTRUCTIONS: Medications: * Continue to take your medications as directed. If you have been given a prescription for Plavix, please fill it immediately and take as directed. Incision Care: * Your puncture site may have some bruising and minor swelling for about one week. * You will have a small dressing covering your puncture site. You may remove the dressing after 24 hours and shower. You may let the warm soapy water run over it, but be sure to dry the puncture site well and keep it dry. * DO NOT IMMERSE THE INCISION IN A TUB/POOL/etc. UNTIL HEALED. * Puncture sites should be kept covered with a band-aid until it begins to heal. Restrictions: * Depending on whether you leg or arm was punctured to access the arteries, you will be required to lay flat, hold your arm still, or both, for about 4 hours after the procedure to prevent bleeding. * Limit your activity for the first 48 hours. You may walk and go up and down steps. Avoid excessive bending or movement at the puncture site. Possible Complications: * Excessive Swelling - after blood flow is improved you may notice increased swelling in the lower legs. This is a normal response. This usually depends on the amount of blockages in the leg, how long they have been there prior to your procedure and how much blood flow was restored. Elevating your legs will help to improve this. Please notify our office ([phone] ) if the swelling does not go away after lying in bed overnight. * Infection/Drainage/Bleeding - Drainage or bleeding from the puncture site should be minimal. If you have excessive bleeding or drainage, call our office ([phone]) right away. * Pain - You may experience some mild pain or soreness at your puncture site. If your pain does not improve, please contact our office ([phone]). Call your doctor and seek emergent treatment if you develop: * Temperature above 101 degrees * Any fever or chills * Any redness or purulent drainage from the puncture site * Any new dusky/blue colored toes or feet with coolness or sharp or aching pain. SKIN IRRITATION: * You may experience some redness and/or swelling in the area where radiation was administered. If any skin irritation occurs, please contact your family physician. FOLLOW UP VISIT: Keep any scheduled doctor appointments. Diet Recommendations Recommended Home Diet: resume previous diet Procedures Procedures Performed: Removal of Femoral Perm Catheter Pending Studies Studies pending at discharge: no Medical Emergencies . Who to Call and When: Medical Emergencies: If at any time you feel your situation is an emergency, please call 911 immediately. . Non-Emergent Contact Non-Emergency issues call your: Surgeon . . "Provider Documentation" section prepared by Wilberto Burton. .
[2018-04-07 08:20] VITALS: BP 130/61; PULSE 66; TEMP 36.9; O2SAT 95
[2018-04-07 08:52] VITALS: BP 124/63; PULSE 65; O2SAT 96
[2018-04-07 09:30] VITALS: BP 117/57; PULSE 62; TEMP 36.9; O2SAT 96
== END | disposition home or self-care (01) ==
LOC: C.ACU 06:12
PROVIDERS: ATTEND Surgery Vascular Surgery
DX: Z45.2 Encounter for adjustment and management of vascular access device (principal); N18.6 End stage renal disease; Z85.850 Personal history of malignant neoplasm of thyroid

== ENCOUNTER 2018-11-25 10:55 | Inpatient (IN) ==
[2018-11-25 11:40] LABS: Mean Corpuscular Hgb Conc 33.8 g/dL (32-36); Mean Platelet Volume 10.2 fL (7.4-10.4); Platelet Count 113 K/uL (130-400)
[2018-11-25] MEDS ORDERED: CEFEPIME 2,000 MG in SYRINGE 7.5 ML IV STA (11:40)
[2018-11-25] MEDS ORDERED: SODIUM CHLORIDE 0.9% 1000ML 1,000 ML IV ONE (11:40)
[2018-11-25] MEDS ORDERED: ONDANSETRON INJ 2 MG/ML 2 ML VIAL IV STA (11:43)
[2018-11-25 11:44] LABS: iSTAT Ionized Calcium 1.13 mmol/l (1.12-1.32)
[2018-11-25 11:48] LABS: INR 1.2 (0.9-1.1); Partial Thromboplastin Time 26.5 Seconds (21.0-31.0); Prothrombin Time 12.3 Seconds (9.0-12.0)
[2018-11-25 11:54] LABS: Hematocrit (blood only) 54.4 % (42-52); Hemoglobin 18.4 g/dL (14.0-18.0); Mean Corpuscular Volume 103.6 fL (80-100); RDW Coefficient of Variation 14.8 % (11.5-14.5); RDW Standard Deviation 56.6 fL (36.4-46.3); Red Blood Count 5.25 M/uL (4.7-6.1); White Blood Count 11.97 K/uL (4.8-10.8)
[2018-11-25 12:08] LABS: Albumin Globulin Ratio 0.8 (0.9-2); Albumin Level 3.9 gm/dl (3.4-5.0); BUN Creatinine Ratio 7.7 (10-20); Bilirubin,Total 0.8 mg/dl (0.1-1); Calcium 10.8 mg/dl (8.5-10.1); Creatinine Clr Calc Pharmacy 6.4 ml/min; Est GFR (African American) 5.3; Est GFR (Non-African American) 4.6; Globulin 4.8 gm/dl (2.5-4.0); Potassium 6.3 mmol/L (3.5-5.1); Total Protein 8.7 gm/dl (6.4-8.2)
--- NOTE | 2018-11-25 12:08 | XRay Report ---
XR chest 1V portable HISTORY: 78 years-old Male shortness of breath. Acute shortness of breath COMPARISON: Chest radiograph 08/28/2018 TECHNIQUE: Portable AP view of the chest FINDINGS: Cardiac silhouette is enlarged. Left subclavian catheter is noted with distal tip terminating within the region of the inferior right atrium. Calcification of the thoracic aortic arch. No pneumothorax, large pleural effusion or overt pulmonary edema. Previously noted ill-defined nodular opacity of the right midlung is not definitively seen on today's study. Subsegmental bibasilar opacities with large hiatal hernia. Degenerative changes of the shoulders and spine. Clips project over the left axillary distribution. IMPRESSION: 1. Cardiomegaly without overt pulmonary edema. 2. Subsegmental bibasilar opacities favor atelectasis. 3. Large hiatal hernia. The above report was generated using voice recognition software. It may contain grammatical, syntax o r spelling errors. Electronically signed by: Jenaro Parrish M.D. 11/25/2018 12:06 PM
[2018-11-25] MEDS ORDERED: ALBUT/IPRATROP 3MG/0.5MG NEB 3 ML VIAL NEB STA (12:10)
[2018-11-25 12:20] LABS: Magnesium 2.5 mg/dl (1.8-2.4); Troponin I 0.337 ng/ml (0-0.045)
[2018-11-25 12:24] LABS: ALC (manual) 0.48 K/uL (1.2-3.4); Lymphocytes # (manual) 0.48 K/uL (1.2-3.4); Metamyelocytes # (manual) 0.36 K/uL (0-0); Monocytes # (manual) 2.75 K/uL (0.11-0.59); RBC Morphology Unremarkable
[2018-11-25] MEDS ORDERED: SODIUM CHLORIDE 0.9% 500 ML IV STA ×2 (12:37→13:27)
--- NOTE | 2018-11-25 12:37 | CT Scan Report ---
ABDOMEN AND PELVIS CT WITHOUT CONTRAST CT DOSE: 399.59 mGy.cm HISTORY: Acute generalized abdominal pain with clinical concern for small bowel obstruction. poss ob struc TECHNIQUE: Multiaxial CT images of the abdomen and pelvis were performed without contrast. A dose lo wering technique was utilized adhering to the principles of ALARA. COMPARISON STUDY: Chest radiograph same day. FINDINGS: Subsegmental bibasilar opacities suggest atelectasis/scarring. Indeterminate pleural-based 4 mm solid nodule of the left lower lobe. Indeterminate 3 mm solid nodule left lower lobe, image 65 series 3. 3 mm pleural-based solid nodule right lower lobe, image 36 series 3. No pneumatosis or pneumoperitoneu m identified. Imaged inferior cardiac chambers are enlarged. Catheter is noted within the right atriu m within the region of the inferior cavoatrial junction. Coronary arterial and aortic annular calcifi cations are noted. Small pericardial effusion. Scattered acetabulum to about the hepatic and splenic parenchyma. Unenhanced liver is otherwise unrem arkable. No intrahepatic biliary ductal dilation. Gallbladder and adrenal glands are unremarkable. Mo derate generalized pancreatic atrophy. Dystrophic morphology of the bilateral kidneys with diffuse cortical thickening. Multiple simple and complex cysts are seen about the bilateral kidneys. Additionally, intermediate attenuating lesions of the kidneys are seen which are technically indeterminate on this noncontrast study. This includes a 1.9 cm exophytic lesion of the inferior pole left kidney. Extensive bilateral renal vascular calcific ations. Additional parenchymal calcifications of the kidneys are also seen. No ureteral calculi or ob structive uropathy. Prostamegaly. Partial distention with wall thickening and perivesicular stranding involves the bladder. Multiple phleboliths of the pelvis. Extensive calcification of the abdominal aorta and arterial structures of the abdomen and pelvis. Ect oliva of the infrarenal abdominal aorta measures 2.7 x 2.6 cm. Dilation of the left common iliac arter y measures 1.7 cm transversely the right also measures 1.7 cm. No adenopathy. Large hiatal hernia. Stomach is distended and fluid-filled. Mildly prominent periesophageal perigastr ic lymph nodes, indeterminate. Dilated fluid-filled loops of small bowel are seen about the central a bdomen measuring up to 4.5 cm transversely with associated air-fluid levels. There is a focal angular loop of small bowel with abrupt transition point in the central aspect of the lower abdomen, image 2 96 series 3 with collapsed small bowel seen distally to this area. Mild associated mesenteric edema. Mild nonspecific rectal wall thickening. Colonic diverticulosis with mild inflammatory stranding seen within the adjacent sigmoid mesocolon on image 359 series 3. The majority of the colon is decompress ed. Terminal ileum is decompressed. Appendix not definitively seen. Small to moderate right and small left inguinal hernias, fat filled. Soft tissues are otherwise unrem arkable. Demineralized. The bones. Degenerative changes of the spine, pelvis and hips. Posterior disc osteophyte complex formation at L5-S1. IMPRESSION: 1. High-grade small bowel obstruction with transition point within the central lower abdomen, likely secondary to underlying small bowel adhesions. Mild associated interloop edema without pneumatosis or pneumoperitoneum. 2. Large hiatal hernia. 3. Atrophic kidneys with multiple simple and complex renal cysts. Additionally, there are indetermina te intermediate attenuating lesions of the kidneys including a 1.9 cm exophytic lesion of the inferio r pole left kidney. These findings could be correlated with follow-up nonemergent renal ultrasound. 4. Extensive calcification of the aorta with fusiform ectasia of the infrarenal portion, 2.7 cm. 5. Prostamegaly with bladder wall thickening. Correlate with urinalysis. 5. Colonic diverticulosis with minimal adjacent inflammatory stranding. Mild acute sigmoid diverticul itis considered. 7. Additional findings as above. Electronically signed by: Jenaro Parrish M.D. 11/25/2018 12:35 PM
--- NOTE | 2018-11-25 13:57 | Surgery Consultation ---
Date of Consultation November 25, 2018 Assessment & Plan (1) SBO (small bowel obstruction): difficult history. discussed with ICU attending. pt would be high risk currently for OR pt without clinical signs of peritonitis or ischemia. elevated LA likely secondary to renal failure agree admit to ICU. IVF. NGT. correct electrolytes. ? urgent dialysis will follow along closely. will need ex-lap if conservative tx fails and after correction of fluids/lytes will attempt to contact pt's brother who lives in [place] (2) ESRD (end stage renal disease) on dialysis: (3) Electrolyte abnormality: (4) Dehydration: (5) Hiatal hernia: (6) Paranoid schizophrenia: History of Present Illness History of Present Illness 78 y/o male with MR and lives in an ECF brought here with c/o of SOB. Had vomitted last night but not really today. pt denies abdominal pain. Pt is on dialysis ( unknown etiology at this time). CT scan shows large HH and a SBO with transition point. Allergies Allergy/AdvReac Type Severity Reaction Status Date / Time No Known Allergies Allergy Verified 11/25/18 12:06 Home Medications Home Medications Medication Instructions Recorded Confirmed Type acetaminophen 325 mg PO Q6H PRN 11/25/18 11/25/18 History atorvastatin 20 mg PO DAILY 11/25/18 11/25/18 History benztropine 1 mg PO BID 11/25/18 11/25/18 History calcium acetate 667 mg PO DAILY 11/25/18 11/25/18 History calcium carbonate-vitamin D3 1 tab PO DAILY 11/25/18 11/25/18 History [Calcium 500 + D] diphenhydramine HCl [Diphenhist] 25 mg PO DIRECTED PRN 11/25/18 11/25/18 History furosemide 80 mg PO DAILY 11/25/18 11/25/18 History haloperidol 5 mg PO QPM 11/25/18 11/25/18 History haloperidol decanoate 25 mg IM MONTHLY 11/25/18 11/25/18 History levothyroxine 200 mcg PO DAILY 11/25/18 11/25/18 History polyethylene glycol 3350 17 g PO DIRECTED 11/25/18 11/25/18 History ranitidine HCl 75 mg PO DIRECTED PRN 11/25/18 11/25/18 History trihexyphenidyl 2 mg PO HS 11/25/18 11/25/18 History vit B [id number]-copper-zinc 1 tab PO DAILY 11/25/18 11/25/18 History [Folbee Plus] Patient History Medical History Elevated partial thromboplastin time (PTT) (Acute) Dementia (Chronic) ESRD (end stage renal disease) on dialysis (Chronic) Hypothyroidism (Chronic) Hx of papillary thyroid carcinoma (Chronic) Paranoid schizophrenia (Chronic) Thrombocytopenia (Chronic) Surgical History H/O vascular surgery (Chronic) Family History Other Family history non-contributory Social History marital status: Single Current Living Situation Comment: intermediate current occupational status: retired Feels Safe at Home: Yes Smoking Status: Former smoker 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 +emesis yesterday Physical Exam 2 Vital Signs (Past 24 Hours): Last Vital Signs Temp 36.5 C 11/25/18 11:04 Pulse 110 H 11/25/18 13:01 Resp 23 11/25/18 13:01 BP 78/51 L 11/25/18 13:01 Pulse Ox 95 11/25/18 13:01 Physical Exam: awake/alert. does not appear to be in any pain. Heart: +tachycardic Lungs: +increased respirations abdomen: mildly distended. soft. nt.
[2018-11-25 14:15] LABS: iSTAT Hemoglobin 15.3 g/dl (14.0-18.0); iSTAT Ionized Calcium 1.07 mmol/l (1.12-1.32)
--- NOTE | 2018-11-25 14:16 | Emergency Department Note ---
Entered by Natalie Syed acting as a scribe for History of Present Illness General Chief complaint: Shortness of Breath/Dyspnea Time Seen by Provider: 11/25/18 11:35 Source: other (nursing staff) Limitations: other (mental status) History of Present Illness Onset (ago): day(s) (this morning) Location: chest Pain Consistency: + other (sudden) Quality: + other (shortness of breath) Associated symptoms: + denies other symptoms (vomit being coffee ground color), + nausea/vomiting (vomiting) and + other (low blood pressure, foul smelling belches) The patient is a 78 year old male who presents to the Emergency Room with complaints of sudden shortness of breath starting this morning. Per nursing staff, the patient is from [facility] and is MR. She states that the patient is a dialysis patient and yesterday he vomited twice after coming home from dialysis. She states that today he vomited again and had some low blood pressure. She reports that they sent him over for concern of aspiration since he had become short of breath. Nursing staff notes that the patient has foul smelling belches. Nursing staff denies the vomit being coffee ground in color. HPI and ROS limited secondary to mental status. Home Medications Home Medications Medication Instructions Recorded Confirmed Type acetaminophen 325 mg PO Q6H PRN 11/25/18 11/25/18 History atorvastatin 20 mg PO DAILY 11/25/18 11/25/18 History benztropine 1 mg PO BID 11/25/18 11/25/18 History calcium acetate 667 mg PO DAILY 11/25/18 11/25/18 History calcium carbonate-vitamin D3 1 tab PO DAILY 11/25/18 11/25/18 History [Calcium 500 + D] diphenhydramine HCl [Diphenhist] 25 mg PO DIRECTED PRN 11/25/18 11/25/18 History furosemide 80 mg PO DAILY 11/25/18 11/25/18 History haloperidol 5 mg PO QPM 11/25/18 11/25/18 History haloperidol decanoate 25 mg IM MONTHLY 11/25/18 11/25/18 History levothyroxine 200 mcg PO DAILY 11/25/18 11/25/18 History polyethylene glycol 3350 17 g PO DIRECTED 11/25/18 11/25/18 History ranitidine HCl 75 mg PO DIRECTED PRN 11/25/18 11/25/18 History trihexyphenidyl 2 mg PO HS 11/25/18 11/25/18 History vit B [id number] 1 tab PO DAILY 11/25/18 11/25/18 History [Folbee Plus] Allergies Allergy/AdvReac Type Severity Reaction Status Date / Time No Known Allergies Allergy Verified 11/25/18 12:06 Past Med/Surg History Medical History Elevated partial thromboplastin time (PTT) (Acute) Dementia (Chronic) ESRD (end stage renal disease) on dialysis (Chronic) Hypothyroidism (Chronic) Hx of papillary thyroid carcinoma (Chronic) Paranoid schizophrenia (Chronic) Thrombocytopenia (Chronic) Surgical History H/O vascular surgery (Chronic) Family History Other Family history non-contributory Social History marital status: Single Current Living Situation Comment: senior care current occupational status: retired Feels Safe at Home: Yes Smoking Status: Former smoker Review of Systems HPI and ROS limited secondary to mental status. Physical Exam Vital Signs Vital Signs - 24 hr 11/25/18 10:48 11/25/18 11:04 11/25/18 11:07 Temperature 36.5 C Temperature Source Oral Sepsis Recent Fever Within 48 Hours No Sepsis New/Unexplained Change in Mental Status No Sepsis Action Taken by Nursing No Action Required Pulse Rate 109 H 109 H Pulse Rhythm Irregular Pulse Strength Normal Respiratory Rate 20 27 H Respiratory Effort / Characteristics Non-Labored Spontaneous Respiratory Depth Normal Blood Pressure 74/59 L 74/59 L Blood Pressure Mean 64 64 Blood Pressure Position Sitting Pulse Oximetry 97 95 93 Oxygen Delivery Method Room Air Room Air 11/25/18 11:08 11/25/18 11:30 11/25/18 11:32 Temperature Temperature Source Sepsis Recent Fever Within 48 Hours Sepsis New/Unexplained Change in Mental Status Sepsis Action Taken by Nursing Pulse Rate 107 H 106 H 107 H Pulse Rhythm Pulse Strength Respiratory Rate 27 H 26 H 24 Respiratory Effort / Characteristics Respiratory Depth Blood Pressure 68/44 L Blood Pressure Mean 52 Blood Pressure Position Pulse Oximetry 93 98 83 L Oxygen Delivery Method 11/25/18 11:57 11/25/18 12:00 11/25/18 12:12 Temperature Temperature Source Sepsis Recent Fever Within 48 Hours Sepsis New/Unexplained Change in Mental Status Sepsis Action Taken by Nursing Pulse Rate 108 H 105 H 102 H Pulse Rhythm Pulse Strength Respiratory Rate 25 H 25 H 19 Respiratory Effort / Characteristics Respiratory Depth Blood Pressure 69/27 L 74/55 L Blood Pressure Mean 41 61 Blood Pressure Position Pulse Oximetry 97 97 Oxygen Delivery Method 11/25/18 12:30 11/25/18 12:31 11/25/18 13:01 Temperature Temperature Source Sepsis Recent Fever Within 48 Hours Sepsis New/Unexplained Change in Mental Status Sepsis Action Taken by Nursing Pulse Rate 103 H 102 H 110 H Pulse Rhythm Pulse Strength Respiratory Rate 22 23 23 Respiratory Effort / Characteristics Respiratory Depth Blood Pressure 82/55 L 78/51 L Blood Pressure Mean 64 60 Blood Pressure Position Pulse Oximetry 95 94 95 Oxygen Delivery Method 11/25/18 13:31 11/25/18 13:35 11/25/18 14:00 Temperature Temperature Source Sepsis Recent Fever Within 48 Hours Sepsis New/Unexplained Change in Mental Status Sepsis Action Taken by Nursing Pulse Rate 105 H 105 H 104 H Pulse Rhythm Pulse Strength Respiratory Rate 28 H 23 20 Respiratory Effort / Characteristics Respiratory Depth Blood Pressure 67/47 L 74/45 L 70/47 L Blood Pressure Mean 53 54 54 Blood Pressure Position Pulse Oximetry 96 95 95 Oxygen Delivery Method 11/25/18 14:30 11/25/18 14:31 Temperature Temperature Source Sepsis Recent Fever Within 48 Hours Sepsis New/Unexplained Change in Mental Status Sepsis Action Taken by Nursing Pulse Rate 106 H 107 H Pulse Rhythm Pulse Strength Respiratory Rate 20 21 Respiratory Effort / Characteristics Respiratory Depth Blood Pressure 68/44 L Blood Pressure Mean 52 Blood Pressure Position Pulse Oximetry 94 95 Oxygen Delivery Method GENERAL: Patient is in no acute distress. HEENT: No acute trauma, normocephalic atraumatic, mucous membranes moist, no nasal congestion, no scleral icterus. NECK: No stridor, no adenopathy, no meningismus, trachea is midline. LUNGS: Clear to auscultation bilaterally, no wheeze, no rhonchi, breath sounds equal. HEART: Subtle systolic murmur. Mildly tachycardic with regular rhythm. ABDOMEN: Nontender, but distended. There is tympany with percussion. No peritonitis. EXTREMITIES: No cyanosis or edema, full range of motion of all the joints without pain or difficulty, no signs for acute trauma. NEUROLOGIC: Awake, moves all extremities, MR noted. SKIN: No rash, no jaundice, no diaphoresis. Course 1136: Past medical records reviewed. The patient was evaluated in room C6, and a complete history and physical examination were performed. 1253: I discussed the patient's case with Dr. Mascorro- Surgeon. He will come see the patient, but recommends that he will need surgery once stabilized. 1258: I reevaluated the patient and he is doing well. He currently his an NG tube in. 1318: I discussed the patient's case with Dr. Claude Smith. He will evaluate the patient for further management. 1337: I discussed the patient's case with Dr. Jey Cruz. They will also evaluate the patient for further management. Consultations Consultation #1: I discussed the patient's case with Dr. Mascorro- Surgeon. He will come see the patient, but recommends that he will need surgery once stabilized. Time: 12:53 Consultation #2: I discussed the patient's case with Dr. Claude Smith. He will evaluate the patient for further management. Time: 13:18 Consultation #3: I discussed the patient's case with Dr. Jey Cruz. They will also evaluate the patient for further management. Time: 13:37 Administered Medications Discontinued Medications Albuterol (Duoneb) 3 ml NEB NOW STA Stop: 11/25/18 12:11 Last Admin: 11/25/18 13:08 Dose: 3 ml Cefepime HCl 2,000 mg/ Syringe 20 mls @ 5.5 mls/min IV NOW STA Stop: 11/25/18 11:43 Last Admin: 11/25/18 13:12 Dose: 5.5 mls/min Sodium Chloride (Nss 1000ml) 1,000 mls @ 999 mls/hr IV .Q1H1M ONE Stop: 11/25/18 12:40 Last Infusion: 11/25/18 13:54 Dose: 0 mls/hr Admin: 11/25/18 11:58 Dose: 999 mls/hr Sodium Chloride (Nss) 500 mls @ 999 mls/hr IV .Q31M STA Stop: 11/25/18 13:07 Last Infusion: 11/25/18 13:55 Dose: 0 mls/hr Admin: 11/25/18 13:09 Dose: 999 mls/hr Sodium Chloride (Nss) 500 mls @ 999 mls/hr IV .Q31M STA Stop: 11/25/18 13:57 Last Infusion: 11/25/18 14:38 Dose: Admin: 11/25/18 13:54 Dose: 999 mls/hr Ondansetron HCl (Zofran) 4 mg IV NOW STA Stop: 11/25/18 11:44 Last Admin: 11/25/18 12:00 Dose: 4 mg Medical Decision Making Differential Diagnosis Differential diagnoses include dehydration, aspiration, bowel obstruction, pneumonia, sepsis, electrolyte abnormality, anemia, WI. Medical Records Attestation: I reviewed the patient's medical records. Home Medications Current Medication List: was personally reviewed by me Laboratory Data Attestation: I reviewed the patient's lab results. Result diagrams: 11/25/18 11:19 11/25/18 11:19 Lab Results 11/25/18 11/25/18 11/25/18 Range/Units 11:19 11:19 11:19 WBC 11.97 H (4.8-10.8) K/uL RBC 5.25 (4.7-6.1) M/uL Hgb 18.4 H (14.0-18.0) g/dL POC Hgb (14.0-18.0) g/dl Hct 54.4 H (42-52) % POC Hct (42-52) % MCV 103.6 H (80-100) fL MCH 35.0 H (25-34) pg MCHC 33.8 (32-36) g/dL RDW Std Deviation 56.6 H (36.4-46.3) fL RDW Coeff of Sp 14.8 H (11.5-14.5) % Plt Count 113 L (130-400) K/uL MPV 10.2 (7.4-10.4) fL Neutrophils % (Manual) 70.0 % Lymphocytes % (Manual) 4.0 % Monocytes % (Manual) 23.0 % Metamyelocytes % (Man) 3.0 % Neutrophils # (Manual) 8.38 H (1.4-6.5) K/uL Total Absolute Neuts 8.38 H (1.4-6.5) K/uL Lymphocytes # (Manual) 0.48 L (1.2-3.4) K/uL Total Abs Lymphocytes 0.48 L (1.2-3.4) K/uL Monocytes # (Manual) 2.75 H (0.11-0.59) K/uL Metamyelocytes # (Man) 0.36 H (0-0) K/uL RBC Morphology Unremarkable PT 12.3 H (9.0-12.0) Seconds INR 1.2 H (0.9-1.1) APTT 26.5 (21.0-31.0) Seconds PTT Ratio 1.0 POC Sodium (135-144) mEq/L Sodium 133 L (136-145) mmol/L POC Potassium (3.3-5.0) mEq/L Potassium 6.3 H* (3.5-5.1) mmol/L POC Chloride (101-112) mEq/L Chloride 89 L (98-107) mmol/L Carbon Dioxide 20 L (21-32) mmol/L POC Total CO2 (24-31) mEq/l Anion Gap 24.0 H (3-11) POC Anion Gap (16-25) mmol/L POC BUN (7-18) mg/dl BUN 75 H (7-18) mg/dl Creatinine 9.74 H* (0.6-1.4) mg/dl POC Creatinine (0.6-1.3) mg/dl Est Cr Clr Drug Dosing 6.4 ml/min Est GFR ( Amer) 5.3 Est GFR (Non-Af Amer) 4.6 BUN/Creatinine Ratio 7.7 L (10-20) Glucose 153 H (70-99) mg/dl POC Glucose (other) (70-99) mg/dl POC Lactic Acid Jimmie (0.90-1.70) mmol/L Calcium 10.8 H (8.5-10.1) mg/dl POC Ioniz Calcium Candy (1.12-1.32) mmol/l Magnesium (1.8-2.4) mg/dl Total Bilirubin 0.8 (0.1-1) mg/dl AST 12 L (15-37) U/L ALT 23 (12-78) U/L Alkaline Phosphatase 127 H (45-117) U/L Troponin I (0-0.045) ng/ml Total Protein 8.7 H (6.4-8.2) gm/dl Albumin 3.9 (3.4-5.0) gm/dl Globulin 4.8 H (2.5-4.0) gm/dl Albumin/Globulin Ratio 0.8 L (0.9-2) 11/25/18 11/25/18 11/25/18 Range/Units 11:19 11:26 11:32 WBC (4.8-10.8) K/uL RBC (4.7-6.1) M/uL Hgb (14.0-18.0) g/dL POC Hgb 19.0 H (14.0-18.0) g/dl Hct (42-52) % POC Hct 56 H (42-52) % MCV (80-100) fL MCH (25-34) pg MCHC (32-36) g/dL RDW Std Deviation (36.4-46.3) fL RDW Coeff of Sp (11.5-14.5) % Plt Count (130-400) K/uL MPV (7.4-10.4) fL Neutrophils % (Manual) % Lymphocytes % (Manual) % Monocytes % (Manual) % Metamyelocytes % (Man) % Neutrophils # (Manual) (1.4-6.5) K/uL Total Absolute Neuts (1.4-6.5) K/uL Lymphocytes # (Manual) (1.2-3.4) K/uL Total Abs Lymphocytes (1.2-3.4) K/uL Monocytes # (Manual) (0.11-0.59) K/uL Metamyelocytes # (Man) (0-0) K/uL RBC Morphology PT (9.0-12.0) Seconds INR (0.9-1.1) APTT (21.0-31.0) Seconds PTT Ratio POC Sodium 135 (135-144) mEq/L Sodium (136-145) mmol/L POC Potassium 6.2 H* (3.3-5.0) mEq/L Potassium (3.5-5.1) mmol/L POC Chloride 95 L (101-112) mEq/L Chloride (98-107) mmol/L Carbon Dioxide (21-32) mmol/L POC Total CO2 21 L (24-31) mEq/l Anion Gap (3-11) POC Anion Gap 26.0 H (16-25) mmol/L POC BUN 60 H (7-18) mg/dl BUN (7-18) mg/dl Creatinine (0.6-1.4) mg/dl POC Creatinine 9.6 H* (0.6-1.3) mg/dl Est Cr Clr Drug Dosing ml/min Est GFR ( Amer) Est GFR (Non-Af Amer) BUN/Creatinine Ratio (10-20) Glucose (70-99) mg/dl POC Glucose (other) 150 H (70-99) mg/dl POC Lactic Acid Jimmie 10.22 H (0.90-1.70) mmol/L Calcium (8.5-10.1) mg/dl POC Ioniz Calcium Candy 1.13 (1.12-1.32) mmol/l Magnesium 2.5 H (1.8-2.4) mg/dl Total Bilirubin (0.1-1) mg/dl AST (15-37) U/L ALT (12-78) U/L Alkaline Phosphatase (45-117) U/L Troponin I 0.337 H* (0-0.045) ng/ml Total Protein (6.4-8.2) gm/dl Albumin (3.4-5.0) gm/dl Globulin (2.5-4.0) gm/dl Albumin/Globulin Ratio (0.9-2) /25/18 Range/Units 14:02 WBC (4.8-10.8) K/uL RBC (4.7-6.1) M/uL Hgb (14.0-18.0) g/dL POC Hgb 15.3 (14.0-18.0) g/dl Hct (42-52) % POC Hct 45 (42-52) % MCV (80-100) fL MCH (25-34) pg MCHC (32-36) g/dL RDW Std Deviation (36.4-46.3) fL RDW Coeff of Sp (11.5-14.5) % Plt Count (130-400) K/uL MPV (7.4-10.4) fL Neutrophils % (Manual) % Lymphocytes % (Manual) % Monocytes % (Manual) % Metamyelocytes % (Man) % Neutrophils # (Manual) (1.4-6.5) K/uL Total Absolute Neuts (1.4-6.5) K/uL Lymphocytes # (Manual) (1.2-3.4) K/uL Total Abs Lymphocytes (1.2-3.4) K/uL Monocytes # (Manual) (0.11-0.59) K/uL Metamyelocytes # (Man) (0-0) K/uL RBC Morphology PT (9.0-12.0) Seconds INR (0.9-1.1) APTT (21.0-31.0) Seconds PTT Ratio POC Sodium 136 (135-144) mEq/L Sodium (136-145) mmol/L POC Potassium 5.7 H (3.3-5.0) mEq/L Potassium (3.5-5.1) mmol/L POC Chloride 98 L (101-112) mEq/L Chloride (98-107) mmol/L Carbon Dioxide (21-32) mmol/L POC Total CO2 23 L (24-31) mEq/l Anion Gap (3-11) POC Anion Gap 21.0 (16-25) mmol/L POC BUN 64 H (7-18) mg/dl BUN (7-18) mg/dl Creatinine (0.6-1.4) mg/dl POC Creatinine 9.3 H* (0.6-1.3) mg/dl Est Cr Clr Drug Dosing ml/min Est GFR ( Amer) Est GFR (Non-Af Amer) BUN/Creatinine Ratio (10-20) Glucose (70-99) mg/dl POC Glucose (other) 111 H (70-99) mg/dl POC Lactic Acid Jimmie (0.90-1.70) mmol/L Calcium (8.5-10.1) mg/dl POC Ioniz Calcium Candy 1.07 L (1.12-1.32) mmol/l Magnesium (1.8-2.4) mg/dl Total Bilirubin (0.1-1) mg/dl AST (15-37) U/L ALT (12-78) U/L Alkaline Phosphatase (45-117) U/L Troponin I (0-0.045) ng/ml Total Protein (6.4-8.2) gm/dl Albumin (3.4-5.0) gm/dl Globulin (2.5-4.0) gm/dl Albumin/Globulin Ratio (0.9-2) Imaging Data Radiologist's Impression: Radiology results as stated below per my review and the radiologist's interpretation: XR chest 1V portable HISTORY: 78 years-old Male shortness of breath. Acute shortness of breath COMPARISON: Chest radiograph 08/28/2018 TECHNIQUE: Portable AP view of the chest FINDINGS: Cardiac silhouette is enlarged. Left subclavian catheter is noted with distal tip terminating within the region of the inferior right atrium. Calcification of the thoracic aortic arch. No pneumothorax, large pleural effusion or overt pulmonary edema. Previously noted ill-defined nodular opacity of the right midlung is not definitively seen on today's study. Subsegmental bibasilar opacities with large hiatal hernia. Degenerative changes of the shoulders and spine. Clips project over the left axillary distribution. IMPRESSION: 1. Cardiomegaly without overt pulmonary edema. 2. Subsegmental bibasilar opacities favor atelectasis. 3. Large hiatal hernia. The above report was generated using voice recognition software. It may contain grammatical, syntax or spelling errors. Electronically signed by: Jenaro Parrish M.D. 11/25/2018 12:06 PM ABDOMEN AND PELVIS CT WITHOUT CONTRAST CT DOSE: 399.59 mGy.cm HISTORY: Acute generalized abdominal pain with clinical concern for small bowel obstruction. poss obstruc TECHNIQUE: Multiaxial CT images of the abdomen and pelvis were performed without contrast. A dose lowering technique was utilized adhering to the principles of ALARA. COMPARISON STUDY: Chest radiograph same day. FINDINGS: Subsegmental bibasilar opacities suggest atelectasis/scarring. Indeterminate pleural-based 4 mm solid nodule of the left lower lobe. Indeterminate 3 mm solid nodule left lower lobe, image 65 series 3. 3 mm pleural-based solid nodule right lower lobe, image 36 series 3. No pneumatosis or pneumoperitoneum identified. Imaged inferior cardiac chambers are enlarged. Catheter is noted within the right atrium within the region of the inferior cavoatrial junction. Coronary arterial and aortic annular calcifications are noted. Small pericardial effusion. Scattered acetabulum to about the hepatic and splenic parenchyma. Unenhanced liver is otherwise unremarkable. No intrahepatic biliary ductal dilation. Gallbladder and adrenal glands are unremarkable. Moderate generalized pancreatic atrophy. Dystrophic morphology of the bilateral kidneys with diffuse cortical thickening. Multiple simple and complex cysts are seen about the bilateral kidneys. Additionally, intermediate attenuating lesions of the kidneys are seen which are technically indeterminate on this noncontrast study. This includes a 1.9 cm exophytic lesion of the inferior pole left kidney. Extensive bilateral renal vascular calcifications. Additional parenchymal calcifications of the kidneys are also seen. No ureteral calculi or obstructive uropathy. Prostamegaly. Partial distention with wall thickening and perivesicular stranding involves the bladder. Multiple phleboliths of the pelvis. Extensive calcification of the abdominal aorta and arterial structures of the abdomen and pelvis. Ectasia of the infrarenal abdominal aorta measures 2.7 x 2.6 cm. Dilation of the left common iliac artery measures 1.7 cm transversely the right also measures 1.7 cm. No adenopathy. Large hiatal hernia. Stomach is distended and fluid-filled. Mildly prominent periesophageal perigastric lymph nodes, indeterminate. Dilated fluid-filled loops of small bowel are seen about the central abdomen measuring up to 4.5 cm transversely with associated air-fluid levels. There is a focal angular loop of small bowel with abrupt transition point in the central aspect of the lower abdomen, image 296 series 3 with collapsed small bowel seen distally to this area. Mild associated mesenteric edema. Mild nonspecific rectal wall thickening. Colonic diverticulosis with mild inflammatory stranding seen within the adjacent sigmoid mesocolon on image 359 series 3. The majority of the colon is decompressed. Terminal ileum is decompressed. Appendix not definitively seen. Small to moderate right and small left inguinal hernias, fat filled. Soft tissues are otherwise unremarkable. Demineralized. The bones. Degenerative changes of the spine, pelvis and hips. Posterior disc osteophyte complex formation at L5-S1. IMPRESSION: 1. High-grade small bowel obstruction with transition point within the central lower abdomen, likely secondary to underlying small bowel adhesions. Mild associated interloop edema without pneumatosis or pneumoperitoneum. 2. Large hiatal hernia. 3. Atrophic kidneys with multiple simple and complex renal cysts. Additionally, there are indeterminate intermediate attenuating lesions of the kidneys including a 1.9 cm exophytic lesion of the inferior pole left kidney. These findings could be correlated with follow-up nonemergent renal ultrasound. 4. Extensive calcification of the aorta with fusiform ectasia of the infrarenal portion, 2.7 cm. 5. Prostamegaly with bladder wall thickening. Correlate with urinalysis. 5. Colonic diverticulosis with minimal adjacent inflammatory stranding. Mild acute sigmoid diverticulitis considered. 7. Additional findings as above. Electronically signed by: Jenaro Parrish M.D. 11/25/2018 12:35 PM ECG Data Attestation: I personally reviewed and interpreted this ECG as follows: Indication: SOB/dyspnea Rate (beats per minute): 107 Rhythm: sinus tachycardia Findings: no PVC and no ST elevation Blood Pressure Blood Pressure Findings: Low blood pressure Blood Pressure Disposition: further management by hospitalist [facility] Narrative There is a mild leukocytosis, this could be consistent with infection or possibly just his vomiting. Patient's hemoglobin was quite high at 18, likely consistent with dehydration. Platelet count slightly low at 113. No worrisome coagulopathy. Renal panel testing shows a high potassium at 6.3. BUN and creatinine are both elevated consistent with his dialysis need. Lactic acid level was quite elevated at 10, this could be consistent with infection or dehydration. Alk phos somewhat elevated at 127. Bilirubin was normal. EKG shows a sinus tachycardia, no acute ischemia. There was a troponin elevation at 0.337. Blood cultures are pending. Chest film does not show pneumonia or free air. No CHF. Abdominal and pelvis CT shows a high-grade bowel obstruction. The patient presents hypotensive. He was tachycardic. He was hyperkalemic. His abdomen was quite distended. He was aggressively managed while here in the ED. Patient received IV cefepime as antibiotic coverage. This was given empirically. He was given 2 L of IV saline during his ER stay. He received IV Zofran for nausea. He was given a DuoNeb to help with the high potassium value. An NG tube was placed and over 2 L of gastric fluid drained. A repeat potassium was drawn after treatment. The value is now 5.7. This is improved of course. I did speak with general surgery. I spoke with the physician on for the intensive care unit. The patient is being sent directly to the ICU. He may require surgery but, right now, he is not stable for surgery. Patient has remained awake and interactive despite the lower blood pressure. He seems to be doing well with treatment thus far. I spoke to case management. The patient is aware of the need for hospitalization. His senior care is aware as well. Impression & Plan Hyperkalemia, Hypotension, Dehydration, Vomiting, Small bowel obstruction Critical Care Time I have personally spent greater than 45 minutes of critical care time in the direct management of this patient. This includes bedside care, interpretation of diagnostic studies, and testing, discussion with consultants, patient, and family members, and other required patient management activities. This 45 minutes is in excess of all separately billable procedures. Critical Care Time: Yes Total Critical Care Time: 45 Discharge Plan Visit Data Chief Complaint: Shortness of Breath/Dyspnea ED Provider: Ford Soares Discharge Problem: Hyperkalemia, Hypotension, Dehydration, Vomiting, Small bowel obstruction Patient Disposition: Being Evaluated by Hospitalist The scribe's documentation has been prepared under my direction and personally reviewed by me in its entirety. I confirm that the note above accurately reflects all work, treatment, procedures, and medical decision making performed by me.
--- NOTE | 2018-11-25 14:36 | History & Physical Report ---
Date of Service November 25, 2018 Assessment & Plan (1) Small bowel obstruction: Sent from assisted living, secondary to nausea vomiting, abdominal discomfort CT abdomen pelvis shows high-grade small bowel obstruction with dilated small bowel loop 4.5 cm, with a transition zone NG tube inserted in ER, status post continued drainage of large amount of dark bilious fluid/gastric secretion Surgery evaluation requested, appreciate input Recommend continued with NG suction, bowel rest, IV fluids If patient clinically declines, will need exploratory laparatomy Patient will be admitted to ICU for close monitoring her hemodynamics Present on Admission?: Yes (2) Dehydration: Due to the above, Continue with NG suction, IV fluid resuscitation Volume status will be monitored very closely, patient is on dialysis Present on Admission?: Yes (3) Vomiting: Due to small bowel obstruction No further vomiting episode after continued NG suction Present on Admission?: Yes (4) Hyperkalemia: Due to combination of dehydration, history of end-stage renal disease on dialysis Last dialysis was 2 days before, on 11/23/2018 Patient given albuterol inhaler in ER EKG does not show any peaked T waves Kayexalate is contraindicated in the setting of acute abdomen/bowel obstruction Discussed with nephrology adoption counselor, Recommends trial of insulin and dextrose, repeat potassium level in the next 30- 40 minutes If potassium level continues to increase, patient will need emergent dialysis today Present on Admission?: Yes (5) Hypotension: Possible secondary to dehydration, small bowel obstruction No overt sign symptoms of sepsis No fever or chills, white count normal Does not have any sign or symptoms of peritonitis Lactic acid elevated markedly Possibly combination of severe dehydration/in setting of end-stage renal disease on dialysis, Need to rule out bowel ischemia secondary to acute bowel obstruction Patient is continue with IV fluids Repeat lactic acid ordered the next 1 hour Surgery and nephrology team following closely Patient is going to be admitted to ICU for close monitoring of hemodynamics (6) Electrolyte abnormality: Lactic acidemia, possible due to severe dehydration, and end-stage renal disease Rule out sepsis Ordered for blood culture Stat ABG requested Patient given a dose of IV cefepime in ER We will hold off further antibiotics until definite signs symptoms of infection/ sepsis noted Patient will be admitted to ICU, pier master assistant updated Present on Admission?: Yes (7) ESRD (end stage renal disease) on dialysis: History of hypertensive nephrosclerosis On dialysis since December 2005 Had multiple fistula, graft complication in the past Present has left upper arm AV fistula Patient follows with [facility] neph[facility] Case discussed with on-call nephrology Recommend to repeat labs, electrolytes/potassium/lactic acid Nephrology will be updated, with any evidence of volume overload, worsening hyperkalemia, or worsening of acidemia secondary to elevated lactic level Present on Admission?: No (8) Paranoid schizophrenia: Continue to hold oral meds, patient admitted with acute abdomen Present on Admission?: No (9) Thrombocytopenia: Chronic Platelet count appears to be at baseline, No evidence of bleeding noted Avoid antiplatelets, anticoagulation Monitor daily CBC Present on Admission?: Yes (10) Hypothyroidism: History of papillary thyroid carcinoma status post thyroidectomy with lymph node dissection by Dr. Grewal on 02/08 Oral supplement of Synthroid is kept on hold secondary to acute abdomen/on NG suction Present on Admission?: No History of Present Illness Chief Complaint: Abdominal pain, vomiting Primary Care Provider: Nikolay Henriquez This is a 78-year-old male with past medical history of mental retardation/ learning disability, history of end-stage renal disease on dialysis secondary to hypertensive nephrosclerosis, has been on dialysis since December 2005, follows with nephrology with [facility], hypertension, hyperlipidemia, chronic thrombocytopenia, paranoid schizophrenia, hypothyroidism Patient is a resident at [facility]/assisted living in [place] Last dialysis was on 11/23/2018, Patient unable to provide any history secondary to MR/acute illness Spoke with staff at [facility], Patient was not feeling well yesterday, had a very poor appetite Vomiting episodes twice overnight This morning staff found him to be very uncomfortable, patient could not verbalize any complaint Had few slices of peach this morning No vomiting No bowel movement since yesterday No report of fever or chills, no shortness of breath, Staff did notice that patient was found to be cold and clammy Was sent to the ER, On arrival to ER patient was found to be hypotensive, hyperkalemia, with elevated lactic acid more than 10 CT abdomen pelvis shows high-grade small bowel obstruction with transition point NG tube was inserted, with drainage of approximately 3 L of dark bilious material Patient will be admitted to ICU Was seen by surgery in ER already, recommend conservative approach with NG tube , IV fluids, for now (high risk for surgery) Patient clinically declines, will need exploratory laparotomy Allergies Allergy/AdvReac Type Severity Reaction Status Date / Time No Known Allergies Allergy Verified 11/25/18 12:06 Home Medications Home Medications Medication Instructions Recorded Confirmed Type acetaminophen 325 mg PO Q6H PRN 11/25/18 11/25/18 History atorvastatin 20 mg PO DAILY 11/25/18 11/25/18 History benztropine 1 mg PO BID 11/25/18 11/25/18 History calcium acetate 667 mg PO DAILY 11/25/18 11/25/18 History calcium carbonate-vitamin D3 1 tab PO DAILY 11/25/18 11/25/18 History [Calcium 500 + D] diphenhydramine HCl [Diphenhist] 25 mg PO DIRECTED PRN 11/25/18 11/25/18 History furosemide 80 mg PO DAILY 11/25/18 11/25/18 History haloperidol 5 mg PO QPM 11/25/18 11/25/18 History haloperidol decanoate 25 mg IM MONTHLY 11/25/18 11/25/18 History levothyroxine 200 mcg PO DAILY 11/25/18 11/25/18 History polyethylene glycol 3350 17 g PO DIRECTED 11/25/18 11/25/18 History ranitidine HCl 75 mg PO DIRECTED PRN 11/25/18 11/25/18 History trihexyphenidyl 2 mg PO HS 11/25/18 11/25/18 History vit B [id number]-[id number] 1 tab PO DAILY 11/25/18 11/25/18 History [Folbee Plus] Past Med/Surg History Medical History Elevated partial thromboplastin time (PTT) (Acute) Dementia (Chronic) ESRD (end stage renal disease) on dialysis (Chronic) Hypothyroidism (Chronic) Hx of papillary thyroid carcinoma (Chronic) Paranoid schizophrenia (Chronic) Thrombocytopenia (Chronic) Surgical History H/O vascular surgery (Chronic) Family History Other Family history non-contributory Social History marital status: Single Current Living Situation: Other Current Living Situation Comment: [facility] current occupational status: retired Other Information That Helps Us Care for You: No Feels Safe at Home: Yes Safety Concerns: Feels Safe At This Time Smoking Status: Former smoker Second Hand Exposure: No Tobacco Cessation Education Requested by Patient: No Hx Alcohol Use: No Hx Substance Use: No Beliefs That Will Affect Care: None Preferred Language: [place] Communication Ability: HX OF Corporate Development Officer Required: No Review of Systems Unobtainable due to mental health condition (Mental retardation,) and Unobtainable due to cognitive status (Mental retardation, at baseline patient is unable to verbalize/communicate effectively) Physical Exam 2 Vital Signs (Past 24 Hours): Last Vital Signs Temp 36.5 C 11/25/18 11:04 Pulse 110 H 11/25/18 13:01 Resp 23 11/25/18 13:01 BP 78/51 L 11/25/18 13:01 Pulse Ox 95 11/25/18 13:01 Constitutional: no acute distress Eyes: + anicteric sclerae ENMT: Mouth: + dry oral mucous membranes Respiratory: normal respiratory effort, lungs clear to auscultation normal respiratory effort; no respiratory distress and no labored breathing Cardiovascular: RRR, no murmur, no edema Gastrointestinal (Abdomen): Inspection/Auscultation: abdomen normal to inspection and + high-pitched sounds (High-pitched bowel sound noted with NG suction) Percussion/Palpation: abdomen soft Musculoskeletal: Extremities: extremities normal to inspection Skin: no rashes, warm and dry Neurologic: moves all extremities and + confused (Baseline mental retardation/ dementia); no focal motor deficits Speech / Cognition: + abnormal cognition ( Baseline mental retardation/dementia) Results & Data Diagnostic Findings CT ABDOMEN PELVIS WITHOUT CONTRAST: IMPRESSION: 1. High-grade small bowel obstruction with transition point within the central lower abdomen, likely secondary to underlying small bowel adhesions. Mild associated interloop edema without pneumatosis or pneumoperitoneum. Large hiatal hernia. Stomach is distended and fluid-filled. Mildly prominent periesophageal perigastric lymph nodes, indeterminate. Dilated fluid-filled loops of small bowel are seen about the central abdomen measuring up to 4.5 cm transversely with associated air-fluid levels. There is a focal angular loop of small bowel with abrupt transition point in the central aspect of the lower abdomen, image 296 series 3 with collapsed small bowel seen distally to this area. Mild associated mesenteric edema. Mild nonspecific rectal wall thickening. Colonic diverticulosis with mild inflammatory stranding seen within the adjacent sigmoid mesocolon on image 359 series 3. The majority of the colon is decompressed. Terminal ileum is decompressed. Appendix not definitively seen. 2. Large hiatal hernia. 3. Atrophic kidneys with multiple simple and complex renal cysts. Additionally, there are indeterminate intermediate attenuating lesions of the kidneys including a 1.9 cm exophytic lesion of the inferior pole left kidney. These findings could be correlated with follow-up nonemergent renal ultrasound. 4. Extensive calcification of the aorta with fusiform ectasia of the infrarenal portion, 2.7 cm. 5. Prostamegaly with bladder wall thickening. Correlate with urinalysis. 5. Colonic diverticulosis with minimal adjacent inflammatory stranding. Mild acute sigmoid diverticulitis considered. PORTABLE CHEST X-RAY IMPRESSION: 1. Cardiomegaly without overt pulmonary edema. 2. Subsegmental bibasilar opacities favor atelectasis. 3. Large hiatal hernia. Medications Administered Current Inpatient Medications Parenteral Electrolytes (Normosol-R) 1,000 mls @ 100 mls/hr IV .Q10H FRANCO Stop: 12/25/18 15:00 Pantoprazole Sodium 40 mg/ (Syringe) 10 mls @ 5 mls/min IV DAILY@1100 FRANCO Stop: 12/26/18 10:59 Levalbuterol HCl (Xopenenx 1.25mg/3ml Neb) 1.25 mg INH Q4R PRN PRN Reason: Dyspnea Stop: 12/25/18 15:00 Miscellaneous (Icu Protocol For Hyperglycemia) 1 ea N/A PRN PRN; Protocol PRN Reason: Hyperglycemia Protocol Stop: 11/27/18 15:00 Code Status & VTE Plan Code Status DNR DNI, as per prior record Contact: Patient's brother: Buddy Jeffries lives in [facility] cell phone number: [phone] VTE Prophylaxis Plan VTE Prophylaxis will be ordered: Yes Reason for no VTE drug order: Contraindicated (Chronic thrombocytopenia/acute abdomen/may need bowel surgery) _ (1) Hypothyroidism Hypothyroidism type: unspecified Qualified Code(s): E03.9 - Hypothyroidism, unspecified (2) Hypotension Hypotension type: unspecified hypotension type Trimester: Qualified Code(s) : I95.9 - Hypotension, unspecified (3) Vomiting Nausea presence: unspecified Vomiting Intractability: unspecified Vomiting type: unspecified Qualified Code(s): R11.10 - Vomiting, unspecified
[2018-11-25] MEDS ORDERED: ICU PROTOCOL FOR HYPERGLYCEMIA PRN (15:01)
[2018-11-25] MEDS ORDERED: LEVALBUTEROL HCL 1.25 MG/3 ML NEB INH PRN (15:01)
[2018-11-25] MEDS ORDERED: LIDOCAINE HCL 1% 20 ML VIAL ONE (15:34)
[2018-11-25] MEDS: NORMOSOL-R 1,000 ML IV SCH (16:04)
[2018-11-25] MEDS ORDERED: INSULIN HUMAN REGULAR PER UNIT 10 UNITS in SYRINGE 9.9 ML IV STA (16:08)
[2018-11-25] MEDS ORDERED: DEXTROSE 50% 50 ML SYRINGE IV ONE (16:15)
--- NOTE | 2018-11-25 16:18 | Critical Care Consultation ---
Date of Consultation November 25, 2018 Assessment & Plan (1) Small bowel obstruction: Impression: 1. High-grade small bowel obstruction. 2. End-stage renal disease on hemodialysis last dose was yesterday. 3. Hyperkalemia secondary to dehydration and end-stage renal disease. 4. Schizophrenia, mental retardation and dementia. 5. sepsis, the patient meets the criteria but the source difficult to find, small bowel obstruction should not be the source. The patient has lactic acidosis, leukocytosis, hyperkalemia and elevated BUN creatinine to begin with. Plan: 1. Agree with your current management. 2. Continue cefepime 1 g IV every 12 hours. 3. I will change IV fluid to 50 mL an hour. 4. We will supply the patient with IV fluid boluses if needed. 5. I would hold off on surgical intervention given his hyperkalemia until it is corrected. 6. Norepinephrine for blood pressure support as well. 7. NG tube to suction. 8. DVT and GI prophylaxis. 9. I would hold off on his oral medications. 10. I will change Cogentin to IV 1 mg every 12 hours. 11. I will change Haldol to IV 5 mg every 4 hours as needed for agitation. 12. Central line placement due to the poor IV access. 13. Discussed with the guardian and commercial lease administrator from the [facility]. 14. Discussed with the staff on rounds and with Dr. Mascorro. 15. We will monitor in the ICU overnight. Thank you, CCM time was 60 minutes excluding procedure time. History of Present Illness Reason for Consultation: Bowel obstruction, high risk patient. Requesting Physician: Dr. pendleton. Attending Physician: Justine Pendleton MD History of Present Illness Dear Dr. pendleton: Thank you for your kind referral of Mr. Jeffries to critical care service. This is 78-year-old gentleman with history of mental retardation, schizophrenia, dementia, hiatal hernia, end-stage renal disease on hemodialysis, presented from the [facility] to our ER with abdominal distention, hypertension, and nausea and vomiting. The patient was found to have distended abdomen in the ED and had an NG tube placed with over than 3 L of gastric and antral contents were removed. The patient was started on IV fluid and was given 1-1/2 L in the ED. After that started on maintenance IV fluid his blood pressure is improved and the patient admitted to the ICU for further management. The patient was evaluated by Dr. Mascorro from surgery, and continued with the current management. The patient was found to have also hyperkalemia with a potassium of less than 6. The patient had his dialysis yesterday. When I interviewed the patient, due to his mental status, the patient could not give me any review of system. However he denies any abdominal pain in general, denies any symptoms whatsoever. To palpation he was tender mainly in the right lower quadrant and the suprapubic area. The patient is not reported to have episodes of syncope or seizures, there was no fever reported and no constitutional symptoms. I have spoken to his caregiver to obtain a consent for a central line as the patient has only one IV access in the right arm and the left arm cannot be accessed due to AV fistula. His family history is not obtainable, social history patient is non-smoker in the past, and the patient per records has not had any industrial work. Surgical history the patient has AV fistula in the left arm, he had multiple scars that noted in the right subclavian area from probably previous placement of a tunneled dialysis catheter. Allergies Allergy/AdvReac Type Severity Reaction Status Date / Time No Known Allergies Allergy Verified 11/25/18 12:06 Home Medications Home Medications Medication Instructions Recorded Confirmed Type acetaminophen 325 mg PO Q6H PRN 11/25/18 11/25/18 History atorvastatin 20 mg PO DAILY 11/25/18 11/25/18 History benztropine 1 mg PO BID 11/25/18 11/25/18 History calcium acetate 667 mg PO DAILY 11/25/18 11/25/18 History calcium carbonate-vitamin D3 1 tab PO DAILY 11/25/18 11/25/18 History [Calcium 500 + D] diphenhydramine HCl [Diphenhist] 25 mg PO DIRECTED PRN 11/25/18 11/25/18 History furosemide 80 mg PO DAILY 11/25/18 11/25/18 History haloperidol 5 mg PO QPM 11/25/18 11/25/18 History haloperidol decanoate 25 mg IM MONTHLY 11/25/18 11/25/18 History levothyroxine 200 mcg PO DAILY 11/25/18 11/25/18 History polyethylene glycol 3350 17 g PO DIRECTED 11/25/18 11/25/18 History ranitidine HCl 75 mg PO DIRECTED PRN 11/25/18 11/25/18 History trihexyphenidyl 2 mg PO HS 11/25/18 11/25/18 History vit B [id number]-copper-zinc 1 tab PO DAILY 11/25/18 11/25/18 History [Folbee Plus] Patient History Medical History Elevated partial thromboplastin time (PTT) (Acute) Dementia (Chronic) ESRD (end stage renal disease) on dialysis (Chronic) Hypothyroidism (Chronic) Hx of papillary thyroid carcinoma (Chronic) Paranoid schizophrenia (Chronic) Thrombocytopenia (Chronic) Surgical History H/O vascular surgery (Chronic) Family History Other Family history non-contributory Social History marital status: Single Current Living Situation: Other Current Living Situation Comment: NURSING HOME current occupational status: retired Other Information That Helps Us Care for You: No Feels Safe at Home: Yes Safety Concerns: Feels Safe At This Time Smoking Status: Former smoker Second Hand Exposure: No Tobacco Cessation Education Requested by Patient: No Hx Alcohol Use: No Hx Substance Use: No Beliefs That Will Affect Care: None Preferred Language: Georgian Communication Ability: HX OF MR. Special Delivery Mail Carrier Required: No Review of Systems Review of system is not obtainable due to patient mental status. Physical Exam 2 Vital Signs (Past 24 Hours): Last Vital Signs Temp 36.7 C 11/25/18 15:07 Pulse 112 H 11/25/18 15:07 Resp 22 11/25/18 15:07 BP 73/50 L 11/25/18 15:07 Pulse Ox 90 11/25/18 15:07 Physical Exam: Vital signs are stable, S1-S2 tachycardic with a heart rate of 113, blood pressure is variable, abdomen is tender mainly in the lower abdomen, but soft, NG tube in place, draining appropriately, the output is light brown material, lungs are clear, no edema. Neurologically difficult to assess. Results & Data Laboratory Results Labs showed leukocytosis, hemoconcentration, thrombocytopenia, BUN/creatinine are elevated and lactic acid almost 10. Diagnostic Findings Chest x-ray showed eventration of the abdominal content was the chest cavity, no infiltrate, abdominal CT showed dilation of the bowel and the gastric fundus , consistent with high-grade bowel obstruction.
--- NOTE | 2018-11-25 16:22 | Procedure Note ---
Procedure Note Date of Service November 25, 2018 Note Central line placement due to the poor IV access the patient has while he is in shock. Consent obtained from Armando Browne who is the victim witness administrator at the [facility]. Risk and benefit explained. Confirmed with nurse Alena Arndt. Agreed to the procedure. The patient was placed in supine position, using ultrasound, anteriorly and posteriorly, the patient does not have a good IJ. He does have a EJ at his enlarged. Attempted posterior approach but unable to explore the vein. Using subclavian site, the patient had the procedure done under strict sterile field, using OR style, the skin was prepped with chlorhexidine including anterior posterior and subclavian area, the patient injected with total of 15 mL of lidocaine in each site, using subclavian right side, Seldinger technique, no scalpel, a dilator was used, the line was placed to 15 cm, all ports were flushed with normal saline, secured with 2 sutures, covered with surgical dressing, chest x-ray showed the tip of the catheter at the SVC junction, no pneumothorax. May use a line. Tolerated well, no immediate complication.
[2018-11-25] MEDS: BENZTROPINE MESYLATE 1 MG/ML 2 ML AMP IV SCH (16:26)
--- NOTE | 2018-11-25 16:28 | XRay Report ---
XR chest 1V portable HISTORY: 78 years-old Male CENTRAL LINE PLACEMENT status post placement of right subclavian central venous catheter COMPARISON: Chest radiograph of same day at 11:21 AM TECHNIQUE: Portable AP view of the chest FINDINGS: Cardiac silhouette is enlarged. Unchanged positioning of the left subclavian hemodialysis catheter. S tatus post placement of a right subclavian central venous catheter, distal tip terminating within the expected region of the mid SVC. No postprocedural pneumothorax. Enteric tube has been placed with di stal tip terminating outside the [id number] coursing towards the abdominal left upper quadrant bel ow the diaphragm. Large hiatal hernia. Subsegmental bibasilar opacities with right hemidiaphragm elevation. No overt pu lmonary edema or large pleural effusion. Degenerative changes of the shoulders and spine. IMPRESSION: 1. Status post placement of a right subclavian central venous catheter, distal tip terminating in the expected region of the mid SVC. 2. No postprocedural pneumothorax. 3. Enteric tube courses below the diaphragm, outside the [id number]. The above report was generated using voice recognition software. It may contain grammatical, syntax o r spelling errors. Electronically signed by: Jenaro Parrish M.D. 11/25/2018 4:27 PM
[2018-11-25] MEDS ORDERED: CEFEPIME 1,000 MG in SYRINGE 0 ML IV ONE (16:30)
[2018-11-25 16:32] LABS: Albumin Globulin Ratio 0.8 (0.9-2); Albumin Level 3.1 gm/dl (3.4-5.0); BUN Creatinine Ratio 8.8 (10-20); Bilirubin,Total 0.7 mg/dl (0.1-1); Calcium 9.3 mg/dl (8.5-10.1); Creatinine Clr Calc Pharmacy 6.6 ml/min; Est GFR (Non-African American) 5.1; Potassium 5.6 mmol/L (3.5-5.1); Total Protein 7.1 gm/dl (6.4-8.2); Troponin I 0.354 ng/ml (0-0.045)
[2018-11-25] MEDS ORDERED: CEFEPIME CONSULT ACTIVE PRN (16:37)
[2018-11-25] MEDS: CALCIUM GLUCONATE 10% 1,000 MG in SODIUM CHLORIDE 0.9% 50 ML IV SCH ×2 (17:33→21:20)
[2018-11-25 20:32] LABS: BUN Creatinine Ratio 9.2 (10-20); Calcium 9.9 mg/dl (8.5-10.1); Creatinine Clr Calc Pharmacy 6.5 ml/min; Est GFR (African American) 5.8; Potassium 5.2 mmol/L (3.5-5.1); Troponin I 0.323 ng/ml (0-0.045)
[2018-11-25] MEDS: HEPARIN SOD 5,000 UNIT/0.5 ML VIAL SQ SCH (21:20)
[2018-11-25] MEDS ORDERED: SODIUM CHLORIDE 0.9% 1000ML 1,000 ML IV PRN (23:06)
[2018-11-26] MEDS: NOREPINEPHRINE BIT INJ 8 MG in DEXTROSE 5% 500 ML IV SCH ×2 (01:02→16:07)
[2018-11-26] MEDS: CALCIUM GLUCONATE 10% 1,000 MG in SODIUM CHLORIDE 0.9% 50 ML IV SCH ×2 (01:04→04:51)
[2018-11-26 05:08] LABS: Hematocrit (blood only) 47.5 % (42-52); Hemoglobin 16.1 g/dL (14.0-18.0); Mean Corpuscular Hgb Conc 33.9 g/dL (32-36); Mean Corpuscular Volume 101.5 fL (80-100); Mean Platelet Volume 10.1 fL (7.4-10.4); Platelet Count 104 K/uL (130-400); RDW Coefficient of Variation 14.8 % (11.5-14.5); RDW Standard Deviation 54.3 fL (36.4-46.3); Red Blood Count 4.68 M/uL (4.7-6.1); White Blood Count 10.48 K/uL (4.8-10.8)
[2018-11-26] MEDS: BENZTROPINE MESYLATE 1 MG/ML 2 ML AMP IV SCH ×2 (05:15→16:15)
[2018-11-26 05:47] LABS: Albumin Globulin Ratio 0.7 (0.9-2); Albumin Level 3.1 gm/dl (3.4-5.0); BUN Creatinine Ratio 9.7 (10-20); Bilirubin,Total 0.8 mg/dl (0.1-1); Calcium 9.8 mg/dl (8.5-10.1); Creatinine Clr Calc Pharmacy 5.9 ml/min; Est GFR (African American) 5.2; Est GFR (Non-African American) 4.5; Globulin 4.3 gm/dl (2.5-4.0); Phosphorus 4.5 mg/dl (2.5-4.9); Potassium 6.7 mmol/L (3.5-5.1); Total Protein 7.4 gm/dl (6.4-8.2); Troponin I 0.186 ng/ml (0-0.045)
[2018-11-26] MEDS ORDERED: DEXTROSE 50% 50 ML SYRINGE IV ONE (06:43)
[2018-11-26] MEDS ORDERED: INSULIN HUMAN REGULAR PER UNIT 10 UNITS in SYRINGE 9.9 ML IV ONE (06:45)
[2018-11-26] MEDS ORDERED: CALCIUM GLUCONATE 10% 1,000 MG in SODIUM CHLORIDE 0.9% 50 ML IV ONE (06:45)
--- NOTE | 2018-11-26 06:58 | XRay Report ---
XR KUB CLINICAL HISTORY: NG PLACEMENT COMPARISON STUDY: CT scan dated 11/25/2018 FINDINGS: There is a nasogastric tube with its tip projected over the stomach. There are dilated smal l bowel loops measuring up tor 5.3 cm in diameter. IMPRESSION: 1. Small bowel obstructive pattern 2. Nasogastric tube positioned within the stomach Electronically signed by: Eagle Trujillo M.D. 11/26/2018 6:56 AM
[2018-11-26] MEDS ORDERED: PIPERACILL/TAZOBAC CONSULT ACTIVE PRN (08:27)
[2018-11-26] MEDS ORDERED: PIPERACILLIN/TAZOBACTAM 3.375 GM in DEXTROSE 5% 100 ML IV ONE (08:30)
[2018-11-26] MEDS: NORMOSOL-R 1,000 ML IV SCH ×2 (09:16→21:14)
--- NOTE | 2018-11-26 09:42 | Nephrology Consultation ---
Date of Consultation November 26, 2018 Assessment & Plan (1) ESRD (end stage renal disease) on dialysis: Chester has end-stage renal disease, has been on dialysis on Saturday, Saturday, Saturday via left arm AV graft. His last dialysis was on 11/23/2018. Was admitted to the hospital on 11/25/2018 with high-grade small bowel obstruction when he presented with 2 days history of vomiting and shortness of breath. On admission he was hypotensive with elevated lactate. Had hyperkalemia which was initially managed conservatively with improvement of potassium last night to 5.2 from 6.2 on admission. This morning potassium again elevated at 6.7. The had 4 liters NG output, no sign of volume overload. Remained persistently hypotensive, requiring pressor support. Lactate improved to 4.5. Small-bowel obstruction is being managed conservatively. --will provide dialysis now with 2 K bath, no ultrafiltration as blood pressure running low, no clear sign of volume overload --suggest increasing pressor dose or add 2nd pressor as needed to maintain blood pressure, suggest keeping MAP above 65 --dose medications for GFR less than 10 --small-bowel obstruction, being managed by surgery, current plan is to continue to manage conservatively Thank you for allowing me to participate in your patient's care. It was a pleasure to see Chester. Will follow (2) Hyperkalemia: (3) Small bowel obstruction: (4) Hypotension: History of Present Illness Reason for Consultation: End-stage renal disease on hemodialysis, hyperkalemia, evaluation for emergency need for dialysis. Attending Physician: Justine Pendleton MD History of Present Illness Chester Jeffries is a 78 with past medical history of end-stage renal disease on HD, schizophrenia admitted to the hospital small-bowel obstruction and hyperkalemia. Nephrology consult was requested to evaluate for emergency hemodialysis for hyperkalemia. Electronic medical records including labs and imaging were reviewed during patient's visit. Chester has history of paranoid schizophrenia, he lives in a skilled nursing. Yesterday he was brought to the emergency room from the skilled nursing as he has been having vomiting from the day before and developed shortness of breath. On admission CT abdomen pelvis showed high-grade small-bowel obstruction. Was found to be hypotensive, lactate was elevated at 12. Had hyperkalemia, potassium was 6.2. The NG tube was placed and he was being managed conservatively for small bowel obstruction. He has been persistently hypotensive, currently on 1 Pressor and systolic blood pressure staying from 80- 90. Lactate improved to 4.5. Potassium this morning was 6.7. He had 4 liter NG output. Has end stage renal disease, has been on dialysis via left arm HERO graft, at [facility] unit on Saturday, Saturday, Saturday. His last dialysis was on Saturday11/23/2018 because of change of schedule for holidays. Currently he complain of mild abdominal discomfort, denies any other symptoms. Has NG tube in place. Allergies Allergy/AdvReac Type Severity Reaction Status Date / Time No Known Allergies Allergy Verified 11/25/18 12:06 Home Medications Home Medications Medication Instructions Recorded Confirmed Type acetaminophen 325 mg PO Q6H PRN 11/25/18 11/25/18 History atorvastatin 20 mg PO DAILY 11/25/18 11/25/18 History benztropine 1 mg PO BID 11/25/18 11/25/18 History calcium acetate 667 mg PO DAILY 11/25/18 11/25/18 History calcium carbonate-vitamin D3 1 tab PO DAILY 11/25/18 11/25/18 History [Calcium 500 + D] diphenhydramine HCl [Diphenhist] 25 mg PO DIRECTED PRN 11/25/18 11/25/18 History furosemide 80 mg PO DAILY 11/25/18 11/25/18 History haloperidol 5 mg PO QPM 11/25/18 11/25/18 History haloperidol decanoate 25 mg IM MONTHLY 11/25/18 11/25/18 History levothyroxine 200 mcg PO DAILY 11/25/18 11/25/18 History polyethylene glycol 3350 17 g PO DIRECTED 11/25/18 11/25/18 History ranitidine HCl 75 mg PO DIRECTED PRN 11/25/18 11/25/18 History trihexyphenidyl 2 mg PO HS 11/25/18 11/25/18 History vit B sohf-E-KC-copper-zinc 1 tab PO DAILY 11/25/18 11/25/18 History [Folbee Plus] Patient History Medical History Elevated partial thromboplastin time (PTT) (Acute) Dementia (Chronic) ESRD (end stage renal disease) on dialysis (Chronic) Hypothyroidism (Chronic) Hx of papillary thyroid carcinoma (Chronic) Paranoid schizophrenia (Chronic) Thrombocytopenia (Chronic) Surgical History H/O vascular surgery (Chronic) Family History Other Family history non-contributory Social History marital status: Single Current Living Situation: Other Current Living Situation Comment: [facility] current occupational status: retired Other Information That Helps Us Care for You: No Feels Safe at Home: Yes Safety Concerns: Feels Safe At This Time Smoking Status: Former smoker Second Hand Exposure: No Tobacco Cessation Education Requested by Patient: No Hx Alcohol Use: No Hx Substance Use: No Beliefs That Will Affect Care: None Preferred Language: Kiswahili Communication Ability: HX OF District Court Reporter Required: No Review of Systems Detailed review of system was negative except mentioned above. Physical Exam 2 Vital Signs (Past 24 Hours): Last Vital Signs Temp 37.1 C 11/26/18 04:00 Pulse 105 H 11/26/18 06:31 Resp 16 11/26/18 06:31 BP 115/46 L 11/26/18 06:31 Pulse Ox 87 L 11/26/18 06:31 Physical Exam: GENERAL: Elderly male, AAA x 3, pleasant, ill-appearing. HEENT: Atraumatic, normocephalic. NECK: Supple, no JVD ENT: No sinus tenderness MOUTH and THROAT: Moist oral mucosa RESPIRATORY: Normal breathing efforts, clear to auscultation bilaterally. CARDIOVASCULAR: S1, S2 normal, rate rhythm regular. ABDOMEN: Soft, mild lower abdominal tenderness, no bowel sound. MUSCULOSKELETAL: No joint swelling, erythema or tenderness. SKIN: No skin rash EXTREMITY: No lower extremity edema NEURO: No gross focal neurological deficit, moves all extremities PSYCHIATRY: Awake, alert and oriented _ (1) Hypotension Hypotension type: unspecified hypotension type Trimester: Qualified Code(s) : I95.9 - Hypotension, unspecified
--- NOTE | 2018-11-26 10:15 | XRay Report ---
KUB HISTORY: Small bowel obstruction. Follow-up. COMPARISON: KUB 11/26/2018. FINDINGS: The nasogastric tube is seen within the right mainstem bronchus and terminates within the r ight lung base. This should be removed. Multiple dilated loops of small bowel are again noted. These measure up to 4.7 cm in diameter. There is gas and stool within the colon. Bibasilar patchy densities are noted. There are bilateral central venous catheters which terminate in the expected location of the SVC. No pneumoperitoneum or pneumatosis. IMPRESSION: 1. Nasogastric tube terminates in the right lung base. This should be removed. 2. Persistent small bowel obstructive pattern. 3. These findings were discussed with Dr. Hemphill at 10:20 AM on 11/26/2018. Electronically signed by: Wiley Castle M.D. 11/26/2018 10:15 AM
[2018-11-26] MEDS ORDERED: LIDOCAINE HCL 2% (LOCAL) INJ 50 ML VIAL ONE (11:17)
[2018-11-26] MEDS: HEPARIN SOD 5,000 UNIT/0.5 ML VIAL SQ SCH ×2 (12:00→21:14)
[2018-11-26] MEDS: PANTOprazole 40 MG in SYRINGE 0 ML IV SCH (12:00)
--- NOTE | 2018-11-26 12:23 | XRay Report ---
KUB HISTORY: NGT placement; RO PNX COMPARISON: KUB 11/26/2018. FINDINGS: Dilated loops of small bowel are again noted and are consistent with the patient's history of a small bowel obstruction. Nasogastric tube is been repositioned and now terminates in the expecte d location of the patient's known large hiatus hernia. Bilateral central venous catheter terminate at the SVC. No pneumoperitoneum or pneumatosis. IMPRESSION: The nasogastric tube has been repositioned and now terminates in the expected location of the patient 's large hiatus hernia. Persistent small bowel obstruction pattern is noted. Electronically signed by: Wiley Castle M.D. 11/26/2018 12:21 PM
--- NOTE | 2018-11-26 13:29 | Surgery Progress Note ---
Date of Service November 26, 2018 Assessment & Plan (1) Small bowel obstruction: SBO. I do not believe he would survive surgery in his current condition continue to correct lytes/fluids if BP improves and fluid/lyte balance improves could consider surgery. ? etiology. he has never had abdominal surgery as far as we can tell continue NGT no evidence of peritonitis or ischemia clinically will continue to follow closely. Subjective pt seen/discussed with nursing receiving dialysis now...borderline tolerating. requiring pressors Physical Exam 2 Vital Signs (Past 24 Hours): Last Vital Signs Temp 37.1 C 11/26/18 08:01 Pulse 129 H 11/26/18 13:15 Resp 19 11/26/18 11:31 BP 90/69 L 11/26/18 13:15 Pulse Ox 94 11/26/18 11:31 Physical Exam: sleeping. does not appear to be in pain abdomen: soft. not really distended. no peritoneal signs.
[2018-11-26] MEDS ORDERED: PHENYLEPHRINE HCL 20 MG in DEXTROSE 5% 500 ML IV SCH (15:33)
--- NOTE | 2018-11-26 15:41 | Critical Care Progress Note ---
Date of Service November 26, 2018 Assessment & Plan (1) Small bowel obstruction: Impression: 1. High-grade small bowel obstruction. 2. End-stage renal disease on hemodialysis last dose was yesterday. 3. Hyperkalemia secondary to dehydration and end-stage renal disease. 4. Schizophrenia, mental retardation and dementia. 5. sepsis, the patient meets the criteria but the source difficult to find, small bowel obstruction should not be the source. The patient has lactic acidosis, leukocytosis, hyperkalemia and elevated BUN creatinine to begin with. 6. Tachycardia, related to norepinephrine as well as fluid shift. Plan: 1. Start Zosyn renally adjusted dose, appreciate pharmacy input. 2. Discontinue cefepime. 3. Continue IV fluid at 50 mL an hour. 4. A line placement. 5. Appreciate surgical consult, and intervention is on hold given his comorbidity. 6. Change norepinephrine to Jacob-Synephrine, to help in eliminating tachycardia. 7. Placement of NG tube suction. 8. DVT and GI prophylaxis. 9. I would hold off on his oral medications. 10. Continue with Cogentin IV as well as as needed Haldol. 11. May need repeat abdominal CT in a day or 2. 12. Central line is functional and well maintained. 13. Appreciate renal consult. Hemodialysis today. 14. Discussed with the staff on rounds and with Dr. Mascorro. 15. Continue ICU monitoring. Thank you, CCM time was 45 minutes excluding procedure time. Subjective The patient remains confused, difficult to obtain review of system from him, however he grimaces to palpating his lower abdomen. Physical Exam 2 Vital Signs (Past 24 Hours): Last Vital Signs Temp 37.1 C 11/26/18 08:01 Pulse 112 H 11/26/18 14:46 Resp 19 11/26/18 11:31 BP 80/61 L 11/26/18 14:46 Pulse Ox 95 11/26/18 14:46 Physical Exam: Lethargic, vital signs has been supported by pressors, started on norepinephrine, a line was placed, and the right radial, the rest of his physical exam revealed S1-S2 regular rate and rhythm, tachycardic, distant breath sounds, NG tube was replaced again, abdomen is soft but tender mainly in the lower part, edema in the periphery. Neurologically hard to assess. Results & Data Laboratory Results His labs were reviewed personally which showed elevated BUN/creatinine at his baseline, hyperkalemia, leukocytosis. Lactic acid normalized, Diagnostic Findings Chest x-ray and KUB revealed the NG tube is in hiatal hernia, adjusted from previous, continued to have dilated small bowel loop.
--- NOTE | 2018-11-26 15:42 | Procedure Note ---
Procedure Note Date of Service November 26, 2018 Supervising Physician Co-Signing Physician Notes A line was placed in the right radial, needed for patient was hypotensive in shock, under strict sterile field, skin was prepped with chlorhexidine, using Seldinger technique, one attempt, the catheter was placed, sutured with one suture, connected to the transducer, a waves were noted, no immediate complication. Tolerated very well. Good capillary perfusion and 5 digits of the right.
[2018-11-26 15:57] LABS: Hematocrit (blood only) 42.7 % (42-52); Hemoglobin 14.5 g/dL (14.0-18.0); Mean Corpuscular Volume 100.9 fL (80-100); RDW Coefficient of Variation 14.9 % (11.5-14.5); RDW Standard Deviation 54.4 fL (36.4-46.3); Red Blood Count 4.23 M/uL (4.7-6.1)
[2018-11-26] MEDS ORDERED: CEFEPIME 1,000 MG in SYRINGE 0 ML IV SCH (16:00)
[2018-11-26 16:24] LABS: Basophils # (auto) 0.02 K/uL (0-0.2); Basophils % (auto) 0.2 %; Eosinophils # (auto) 0.01 K/uL (0-0.5); Eosinophils % (auto) 0.1 %; Immature Granulocytes # (auto) 0.03 K/uL (0.00-0.02); Immature Granulocytes % (auto) 0.3 %; Lymphocytes # (auto) 1.18 K/uL (1.2-3.4); Lymphocytes % (auto) 13.4 %; Mean Platelet Volume 10.3 fL (7.4-10.4); Monocytes # (auto) 2.14 K/uL (0.11-0.59); Monocytes % (auto) 24.3 %; Neutrophils # (auto) 5.42 K/uL (1.4-6.5); Neutrophils % (auto) 61.7 %; Platelet Count 94 K/uL (130-400); Toxic Vacuolation 1+
[2018-11-26 16:40] LABS: BUN Creatinine Ratio 7.5 (10-20); Calcium 8.2 mg/dl (8.5-10.1); Creatinine Clr Calc Pharmacy 12.7 ml/min; Est GFR (African American) 13.6; Est GFR (Non-African American) 11.8
[2018-11-26 17:08] LABS: Potassium 4.2 mmol/L (3.5-5.1)
--- NOTE | 2018-11-26 17:20 | Hospitalist Progress Note ---
Date of Service November 26, 2018 Assessment & Plan (1) Small bowel obstruction: persistent continued to have high output [place] suction Sent from assisted living, secondary to nausea vomiting, abdominal discomfort CT abdomen pelvis shows high-grade small bowel obstruction with dilated small bowel loop 4.5 cm, with a transition zone NG tube inserted in ER, status post continued drainage of large amount of dark bilious fluid/gastric secretion Surgery following , Recommend continued with NG suction, bowel rest, IV fluids If patient clinically declines, will need exploratory laparatomy pt remains critically ill in ICU (2) Hypovolemic shock: present on admission due to small bowel obstruction /dehydration with large amount of NG suction out put cont to be hypotensive after giving IVF received IV fluid resuscitation, S/P Rt IJ central line placement by radiation oncology manager rt radial arterial line placed started on Levophed Nephrology following closely had dialysis to correct electrolytes only no fluid was taken off cont to monitor in ICU (3) Sepsis: severe sepsis due to small bowel obstruction / meets criteria : hypotensive shock , elevated lactic acid , electrolyte deranagements blood culture : gram positive cocci was started empirically with IV Zosyn Vancomycin added for gram positive coverage ID eval requested (4) Dehydration: (5) Hyperkalemia: Due to combination of dehydration, history of end-stage renal disease on dialysis Last dialysis was 2 days before, on 11/23/2018 Patient given albuterol inhaler in ER EKG does not show any peaked T waves appreciate input from Nephrology s/p dialysis today (6) Hypotension: (7) Electrolyte abnormality: presented with lactic acidemia : hypotension , severe sespsis Hyperkalemia apprecaite input from Nephrolgy s/p dialysis follow electrolytes Lacitc acid level gradually improved with IV fluids , pressor support to keep organ perfusion (8) ESRD (end stage renal disease) on dialysis: History of hypertensive nephrosclerosis On dialysis since December 2005 Had multiple fistula, graft complication in the past Present has left upper arm AV fistula Patient follows with [facility] nephrology consulted appreciate input s./p dialuysis today (9) Paranoid schizophrenia: Continue to hold oral meds, patient admitted with acute abdomen (10) Thrombocytopenia: Chronic Platelet count appears to be at baseline, No evidence of bleeding noted Avoid antiplatelets, anticoagulation Monitor daily CBC (11) Hypothyroidism: History of papillary thyroid carcinoma status post thyroidectomy with lymph node dissection by Dr. Grewal on 02/08 Oral supplement of Synthroid is kept on hold secondary to acute abdomen/on NG suction CODE STATUS : DNR/DNI Brother KENNEDI agreeable for short term intubation for surgery /exp Laparatomy Subjective Found to be very uncomfortable, trying to climb up bed, pulling at lines, has mittens on both hands, NG tube continues to drain large amount of dark bilious/ coffee-ground liquids, no bowel sounds Physical Exam 2 Vital Signs (Past 24 Hours): Last Vital Signs Temp 36.2 C L 11/26/18 14:41 Pulse 112 H 11/26/18 14:46 Resp 19 11/26/18 11:31 BP 80/61 L 11/26/18 14:46 Pulse Ox 95 11/26/18 14:46 Constitutional: + ill appearing, + altered mental status (Advanced dementia, now with worsening mental status, metabolic encephalopathy) and + in distress Eyes: + anicteric sclerae ENMT: Mouth: + dry oral mucous membranes Respiratory: no respiratory distress and no labored breathing Cardiovascular: RRR, no murmur, no edema Gastrointestinal (Abdomen): Inspection/Auscultation: + abnormal bowel sounds ( Bowel sounds absent) Percussion/Palpation: abdomen soft Musculoskeletal: Extremities: extremities normal to inspection Skin: no rashes, warm and dry Neurologic: moves all extremities and + confused (Baseline mental retardation/ dementia); no focal motor deficits Speech / Cognition: + abnormal cognition ( Baseline mental retardation/dementia) _ (1) Hypothyroidism Hypothyroidism type: unspecified Qualified Code(s): E03.9 - Hypothyroidism, unspecified (2) Hypotension Hypotension type: unspecified hypotension type Trimester: Qualified Code(s) : I95.9 - Hypotension, unspecified (3) Sepsis Sepsis type: sepsis due to unspecified organism Qualified Code(s): A41.9 - Sepsis, unspecified organism
[2018-11-26] MEDS: PIPERACILLIN/TAZOBACTAM 3.375 GM in DEXTROSE 5% 100 ML IV SCH (18:13)
[2018-11-26] MEDS ORDERED: Nursing to Pharmacy Communication ONE (18:56)
[2018-11-26] MEDS: HALOPERIDOL LACTATE 5 MG/ML 1 ML VIAL IV PRN (19:32)
[2018-11-26] MEDS: PHENYLEPHRINE HCL 40 MG in DEXTROSE 5% 500 ML IV SCH (19:33)
[2018-11-26] MEDS ORDERED: MoRPHine SULFATE 4 MG/ML 1 ML CARP\\VIAL ONE (21:09)
[2018-11-26] MEDS: MoRPHine SULFATE 4 MG/ML 1 ML CARP\\VIAL IV PRN (21:13)
[2018-11-26] MEDS ORDERED: LORazepam 0.25 MG/0.5 ML VIAL IV PRN (21:29)
[2018-11-26] MEDS ORDERED: VANCOMYCIN HCL 1,250 MG in SODIUM CHLORIDE 0.9% 250 ML IV SCH (22:30)
[2018-11-27] MEDS: MoRPHine SULFATE 4 MG/ML 1 ML CARP\\VIAL IV PRN (01:34)
[2018-11-27] MEDS: PHENYLEPHRINE HCL 40 MG in DEXTROSE 5% 500 ML IV SCH ×4 (04:13→17:57)
[2018-11-27] MEDS: BENZTROPINE MESYLATE 1 MG/ML 2 ML AMP IV SCH ×2 (04:34→16:24)
[2018-11-27 04:36] LABS: Hematocrit (blood only) 38.4 % (42-52); Hemoglobin 12.6 g/dL (14.0-18.0); Mean Corpuscular Hgb Conc 32.8 g/dL (32-36); Mean Corpuscular Volume 102.4 fL (80-100); Nucleated RBC # (auto) 0.03 K/uL (0-0); Nucleated RBC % (auto) 0.4 %; RDW Coefficient of Variation 15.1 % (11.5-14.5); RDW Standard Deviation 56.6 fL (36.4-46.3); Red Blood Count 3.75 M/uL (4.7-6.1); White Blood Count 8.61 K/uL (4.8-10.8)
[2018-11-27 04:40] LABS: Mean Platelet Volume 10.1 fL (7.4-10.4); Platelet Count 93 K/uL (130-400)
[2018-11-27 05:07] LABS: Albumin Globulin Ratio 0.7 (0.9-2); Albumin Level 2.5 gm/dl (3.4-5.0); BUN Creatinine Ratio 8.2 (10-20); Bilirubin,Total 0.9 mg/dl (0.1-1); Calcium 7.3 mg/dl (8.5-10.1); Creatinine Clr Calc Pharmacy 9.3 ml/min; Est GFR (African American) 9.4; Est GFR (Non-African American) 8.1; Globulin 3.8 gm/dl (2.5-4.0); Phosphorus 4.4 mg/dl (2.5-4.9); Potassium 4.7 mmol/L (3.5-5.1); Total Protein 6.3 gm/dl (6.4-8.2)
[2018-11-27] MEDS: PIPERACILLIN/TAZOBACTAM 3.375 GM in DEXTROSE 5% 100 ML IV SCH ×2 (05:19→17:19)
--- NOTE | 2018-11-27 08:12 | Anesthesiology Consultation ---
Date of Service November 27, 2018 Assessment & Plan (1) Encounter for pre-operative examination: Chart Review Chart Review: Acceptable Risk for Surgery (Pt high risk for surgery) and Patient NOT seen in Pre Admission Testing ASA [id number] Proposed Anesthesia Anesthesia Type: General Risk / Benefits Reviewed With: PT / POA / Parent / Guardian, Accepts Plan and Informed Consent Obtained Additional Comments: Due to pt's mental status, consent obtained from his brother, Buddy Jeffries, who is POA. Discussed risks of anesthesia with Mr. Buddy Jeffries and his who is a nurse, including risks of cardiac complications such as [place], arrhythmia, stroke, , etc and possible post op intubation. Pt has a DNR/ DNI order that will be suspended per brother during sugery. Pt's brother understands risks and agree to proceed with plan. Verbal consent was obtained and witnessed. NPO Date Last Intake of Fluids: 11/25/18 Time Last Intake of Fluids: 12:00 Date Last Intake of Solids: 11/25/18 Time Last Intake of Solids: 12:00 History Surgery Operation Date: 11/27/18 13:50 Proposed Procedures p Exploratory Laparotomy, Release Small Bowel Obstruction - Alberto You MD, FACS Height/Weight Height: 1.8 m Weight: 65.1 kg Allergies Allergy/AdvReac Type Severity Reaction Status Date / Time No Known Allergies Allergy Verified 11/25/18 12:06 Medications Home Medications Medication Instructions Recorded Confirmed Last Taken acetaminophen 325 mg PO Q6H PRN 11/25/18 11/25/18 Unknown atorvastatin 20 mg PO DAILY 11/25/18 11/25/18 11/24/18 benztropine 1 mg PO BID 11/25/18 11/25/18 11/24/18 calcium acetate 667 mg PO DAILY 11/25/18 11/25/18 11/24/18 calcium carbonate-vitamin D3 1 tab PO DAILY 11/25/18 11/25/18 11/24/18 [Calcium 500 + D] diphenhydramine HCl [Diphenhist] 25 mg PO DIRECTED PRN 11/25/18 11/25/18 Unknown furosemide 80 mg PO DAILY 11/25/18 11/25/18 11/24/18 haloperidol 5 mg PO QPM 11/25/18 11/25/18 11/24/18 haloperidol decanoate 25 mg IM MONTHLY 11/25/18 11/25/18 11/18/18 levothyroxine 200 mcg PO DAILY 11/25/18 11/25/18 11/24/18 polyethylene glycol 3350 17 g PO DIRECTED 11/25/18 11/25/18 Unknown ranitidine HCl 75 mg PO DIRECTED PRN 11/25/18 11/25/18 Unknown trihexyphenidyl 2 mg PO HS 11/25/18 11/25/18 11/24/18 vit B jgcf-N-DB-copper-zinc 1 tab PO DAILY 11/25/18 11/25/18 11/24/18 [Folbee Plus] Active Medications Generic Name Dose Route Start Last Admin Trade Name Freq PRN Reason Stop Dose Admin Benztropine Mesylate 1 mg 11/25/18 16:30 11/27/18 04:34 Cogentin IV 12/25/18 16:29 1 mg Q12H FRANCO Administration Haloperidol Lactate 5 mg 11/25/18 16:05 11/26/18 19:32 Haldol IV 12/25/18 16:04 5 mg Q4H PRN Administration Agitation Heparin Sodium (Porcine) 5,000 units 11/25/18 21:00 11/26/18 21:14 Heparin Sodium (Porcine) SQ 12/25/18 20:59 5,000 units Q12 FRANCO Administration Parenteral Electrolytes 1,000 mls @ 50 mls/hr 11/25/18 15:01 11/26/18 21:14 Normosol-R IV 12/25/18 15:00 50 mls/hr .Q20H FRANCO Administration Pantoprazole Sodium 40 mg/ 10 mls @ 5 mls/min 11/26/18 11:00 11/27/18 12:44 Syringe IV 12/26/18 10:59 5 mls/min DAILY@1100 FRANCO Administration Piperacillin Sod/Tazobactam 115 mls @ 28.75 mls/hr 11/26/18 18:00 11/27/18 09 :20 Sod 3.375 gm/ Dextrose IV 12/06/18 17:59 Infused Q12H FRANCO Infusion Protocol Hard Fat/Phenylephrine 40 mg/ 504 mls @ 98.43 mls/hr 11/26/18 19:15 11/27/18 09:49 Dextrose IV 12/26/18 19:14 2 mcg/kg/min .Q5H8M FRANCO 98.4 mls/hr Titration Protocol 2 MCG/KG/MIN Fentanyl Citrate 1,250 mcg in 250 mls @ 20 mls/hr 11/27/18 10:45 11/27/18 12: 39 Fentanyl Drip IV 12/11/18 10:44 100 mcg/hr .[id number] FRANCO 20 mls/hr Administration Protocol 100 MCG/HR Beta David Beta David Taken Within 24 Hours: No Past Medical History Medical History Elevated partial thromboplastin time (PTT) (Acute) Dementia (Chronic) ESRD (end stage renal disease) on dialysis (Chronic) last dialysis yesterday Hypothyroidism (Chronic) Hx of papillary thyroid carcinoma (Chronic) Paranoid schizophrenia (Chronic) Thrombocytopenia (Chronic) Hypotension Hypovolemic shock On phenylephrine drip Past Family History Family History Other Family history non-contributory Past Surgical History Surgical History H/O vascular surgery (Chronic) S/P colonoscopy Past Anesthesia History No Hx of Anesthesia Complications and No Family Hx of Anesthesia Complications History of PONV No Motion Sickness Screening History of Motion Sickness: No Social History Smoking Status: Former smoker (Quit 5 years ago. ) Do You Dip or Chew Tobacco: No Hx Alcohol Use: No Hx Substance Use: No Exercise / Class Metabolic Activity III < 4 Walking/Shop/Light housework Physical Exam Vital Signs Last Vital Signs Temp 36.6 C 11/27/18 05:00 Pulse 98 H 11/27/18 11:13 Resp 14 11/27/18 11:13 BP 85/62 L 11/27/18 06:00 Pulse Ox 97 11/27/18 11:13 Constitutional + altered mental status ENMT Thyromental Distance: < 3.5 Finger Breadths Unable to eval MPT; pt not following commands Neck neck extension not limited Respiratory Auscultation: lungs clear to auscultation bilaterally Cardiovascular Rate/Rhythm: regular rate and regular rhythm Psychiatric Orientation: + not alert and + not oriented x 3 Confused, on wrist restraints with a sitter Testing Electrocardiogram Date: 11/25/18 Findings: + ST @ (107) Chest X-Ray Date: 11/25/18 Findings: + NAD FINDINGS: Cardiac silhouette is enlarged. Unchanged positioning of the left subclavian hemodialysis catheter. Status post placement of a right subclavian central venous catheter, distal tip terminating within the expected region of the mid SVC. No postprocedural pneumothorax. Enteric tube has been placed with distal tip terminating outside the [id number] coursing towards the abdominal left upper quadrant below the diaphragm. Large hiatal hernia. Subsegmental bibasilar opacities with right hemidiaphragm elevation. No overt pulmonary edema or large pleural effusion. Degenerative changes of the shoulders and spine. IMPRESSION: 1. Status post placement of a right subclavian central venous catheter, distal tip terminating in the expected region of the mid SVC. 2. No postprocedural pneumothorax. 3. Enteric tube courses below the diaphragm, outside the [id number]. Echocardiogram Date: 11/26/18 EF: >70% LV Function: normal RWMA: + none Other Findings: + LVH (mild CLVH) Valvular Disease: + no significant valvular disease Laboratory Results 11/27/18 04:26 11/27/18 04:26 Blood Type A Positive 11/27/18 10:21 Antibody Screen NEGATIVE 11/27/18 10:21 PT 12.3 Seconds (9.0-12.0) H 11/25/18 11:19 INR 1.2 (0.9-1.1) H 11/25/18 11:19 APTT 26.5 Seconds (21.0-31.0) 11/25/18 11:19 11/25/18 11:55 Blood Culture - Preliminary Blood Gram positive cocci 11/25/18 11:45 Blood Culture - Preliminary Blood No growth to date. 11/27/18 12:12 POC Glucose (other) 118 H
[2018-11-27] MEDS ORDERED: SODIUM CHLORIDE 0.9% 1000ML 1,000 ML IV PRN (08:37)
[2018-11-27] MEDS ORDERED: VANCOMYCIN CONSULT ACTIVE PRN (09:00)
--- NOTE | 2018-11-27 09:45 | Nephrology Progress Note ---
Date of Service November 27, 2018 Assessment & Plan (1) ESRD (end stage renal disease) on dialysis: Chester has end-stage renal disease, has been on dialysis on Saturday, Saturday, Saturday via left arm AV graft. His last dialysis was on 11/23/2018. Was admitted to the hospital on 11/25/2018 with high-grade small bowel obstruction when he presented with 2 days history of vomiting and shortness of breath. On admission he was hypotensive with elevated lactate. Had hyperkalemia which was initially managed conservatively with improvement of potassium overnight to 5.2 from 6.2 on admission. The had 4 liters NG output, no sign of volume overload. Remained persistently hypotensive, requiring pressor support. Lactate improved to 4.5. Overall clinically deteriorating. --surgery is planning for exploratory laparotomy this afternoon. --will plan for dialysis tomorrow --dose medications for GFR less than 10 Will follow (2) Hyperkalemia: (3) Small bowel obstruction: (4) Hypotension: Subjective Chester was seen and examined. Overall doing poorly, awake bbut5 seems uncomfortable and responding minimally. Remain hypotensive. Review of Systems Detail ROS was not possible due to pts condition. Physical Exam 2 Vital Signs (Past 24 Hours): Last Vital Signs Temp 36.6 C 11/27/18 05:00 Pulse 102 H 11/27/18 06:00 Resp 20 11/27/18 06:00 BP 85/62 L 11/27/18 06:00 Pulse Ox 92 11/27/18 06:00 Constitutional: + acute distress and + ill appearing Respiratory: Auscultation: + diminished lung sounds Cardiovascular: RRR, no murmur, no edema Neurologic: moves all extremities _ (1) Hypotension Hypotension type: unspecified hypotension type Trimester: Qualified Code(s) : I95.9 - Hypotension, unspecified
--- NOTE | 2018-11-27 10:02 | Infectious Disease Consult ---
Date of Consultation November 27, 2018 Supervising Physician Co-Signing Physician Notes unable to add problem to list. suggest addition of vanco pending culture resultus, ? contaminant. wound repeat blood culture x 2. History of Present Illness Attending Physician: Justine Pendleton MD pt admitted with change in mental status and vomiting at snf. found on ct in ER to have high grade sbo. for likely OR later. was hypotensive in ER, admitted to ICU. blood cultures obtained in ER 1/2 sets growing gpc, ID pending. placed on zosyn. tolerating . afebrile. since admission, ngt in place. unable to provide ros, obtained from chart. wbc 8.6, creat elevated at 6 but is on HD. no ua. currently afrebrile. Allergies Allergy/AdvReac Type Severity Reaction Status Date / Time No Known Allergies Allergy Verified 11/25/18 12:06 Home Medications Home Medications Medication Instructions Recorded Confirmed Type acetaminophen 325 mg PO Q6H PRN 11/25/18 11/25/18 History atorvastatin 20 mg PO DAILY 11/25/18 11/25/18 History benztropine 1 mg PO BID 11/25/18 11/25/18 History calcium acetate 667 mg PO DAILY 11/25/18 11/25/18 History calcium carbonate-vitamin D3 1 tab PO DAILY 11/25/18 11/25/18 History [Calcium 500 + D] diphenhydramine HCl [Diphenhist] 25 mg PO DIRECTED PRN 11/25/18 11/25/18 History furosemide 80 mg PO DAILY 11/25/18 11/25/18 History haloperidol 5 mg PO QPM 11/25/18 11/25/18 History haloperidol decanoate 25 mg IM MONTHLY 11/25/18 11/25/18 History levothyroxine 200 mcg PO DAILY 11/25/18 11/25/18 History polyethylene glycol 3350 17 g PO DIRECTED 11/25/18 11/25/18 History ranitidine HCl 75 mg PO DIRECTED PRN 11/25/18 11/25/18 History trihexyphenidyl 2 mg PO HS 11/25/18 11/25/18 History vit B [id number]-[id number]-II-copper-zinc 1 tab PO DAILY 11/25/18 11/25/18 History [Folbee Plus] Patient History Medical History Elevated partial thromboplastin time (PTT) (Acute) Dementia (Chronic) ESRD (end stage renal disease) on dialysis (Chronic) Hypothyroidism (Chronic) Hx of papillary thyroid carcinoma (Chronic) Paranoid schizophrenia (Chronic) Thrombocytopenia (Chronic) Hypotension Hypovolemic shock Surgical History H/O vascular surgery (Chronic) S/P colonoscopy Family History Other Family history non-contributory Social History marital status: Single Current Living Situation: Other Current Living Situation Comment: RESIDENTIAL current occupational status: retired Other Information That Helps Us Care for You: No Feels Safe at Home: Yes Safety Concerns: Feels Safe At This Time Smoking Status: Former smoker (Quit 5 years ago. ) Do You Dip or Chew Tobacco: No Hx Alcohol Use: No Hx Substance Use: No Beliefs That Will Affect Care: None Communication Ability: Effective Review of Systems unable to obtain Physical Exam 2 Vital Signs (Past 24 Hours): Last Vital Signs Temp 36.6 C 11/27/18 05:00 Pulse 102 H 11/27/18 06:00 Resp 20 11/27/18 06:00 BP 85/62 L 11/27/18 06:00 Pulse Ox 92 11/27/18 06:00 Constitutional: well developed, + ill appearing, + altered mental status, + behavioral limitations and + physical limitations Eyes: eyes closed, does not follow commands ENMT: Nose: + dry nasal mucous membranes Neck: normal visual inspection Respiratory: normal respiratory effort, lungs clear to auscultation Cardiovascular: RRR, no murmur, no edema Gastrointestinal (Abdomen): Inspection/Auscultation: + abdomen distended ngt with bilious drainage Musculoskeletal: Head/Neck/Chest: + head abnormal to inspection, normocephalic and head atraumatic moving all extremities, does not follow commands Skin: no rashes, warm and dry Psychiatric: Orientation: + not alert and + not oriented x 3 lethargic Results & Data Laboratory Results Microbiology 11/25/18 11:45 Blood Blood Culture - Preliminary No growth to date. 12/25/18 11:55 Blood Blood Culture - Preliminary Gram positive cocci
--- NOTE | 2018-11-27 10:02 | Surgery Progress Note ---
Date of Service November 27, 2018 Assessment & Plan (1) Small bowel obstruction: everyone agrees that now would be the best time to go to the OR. electrolytes/fluids improved call pt's brother Buddy. discussed very high surgical risks ( bleeding/infection/ dvt/pe/mi/cva/injury to an organ/ ) questions answered will proceed with ex-lap with surgery as needed. Subjective pt seen. non verbal. discussed with Dr. Hemphill and nursing staff no bowel fx and continues high NGT outputs KUB remains c/w SBO Physical Exam 2 Vital Signs (Past 24 Hours): Last Vital Signs Temp 36.6 C 11/27/18 05:00 Pulse 102 H 11/27/18 06:00 Resp 20 11/27/18 06:00 BP 85/62 L 11/27/18 06:00 Pulse Ox 92 11/27/18 06:00 Physical Exam: non-verbal Heart: RRR lungs: decreased bs's worse on left abdomen: soft. no guarding. minimal if any distension
[2018-11-27] MEDS ORDERED: RAPID SEQUENCE INDUCTION BAG ONE (10:32)
[2018-11-27] MEDS ORDERED: fentaNYL DRIP 1,250 MCG/250 ML BAG IV SCH (10:45)
[2018-11-27] MEDS ORDERED: FENTANYL IV ONE (11:00)
[2018-11-27] MEDS ORDERED: TPN/PPN CONSULT PHARMACY STA (12:06)
[2018-11-27] MEDS ORDERED: TPN/PPN CONSULT PHARMACY PRN (12:12)
[2018-11-27] MEDS ORDERED: DEXTROSE 10% 1,000 ML IV SCH (12:15)
--- NOTE | 2018-11-27 12:22 | Hospitalist Progress Note ---
Date of Service November 27, 2018 Assessment & Plan (1) Small bowel obstruction: plan for exp lap by Surgery today Sent from assisted living, secondary to nausea vomiting, abdominal discomfort CT abdomen pelvis shows high-grade small bowel obstruction with dilated small bowel loop 4.5 cm, with a transition zone NG tube inserted in ER, status post continued drainage of large amount of dark bilious fluid/gastric secretion Surgery following no improvement after continued NG suction (2) Hypovolemic shock: present on admission due to severe sepsis / small bowel obstruction /dehydration with large amount of NG suction out put cont to be hypotensive after giving IVF received IV fluid resuscitation, S/P Rt IJ central line placement by telephone instrument supervisor rt radial arterial line placed on Levophed Nephrology following closely had dialysis to correct electrolytes only no fluid was taken off plan for exp lap today (3) Sepsis: severe sepsis due to small bowel obstruction / meets criteria : hypotensive shock , elevated lactic acid , electrolyte deranagements blood culture : gram positive cocci was started empirically with IV Zosyn Vancomycin added for gram positive coverage ID eval requested -appreciate input (4) Dehydration: (5) Hyperkalemia: Due to combination of dehydration, history of end-stage renal disease on dialysis Last dialysis was 2 days before, on 11/23/2018 Patient given albuterol inhaler in ER EKG does not show any peaked T waves appreciate input from Nephrology s/p dialysis today (6) Hypotension: (7) Electrolyte abnormality: presented with lactic acidemia : hypotension , severe sespsis Hyperkalemia apprecaite input from Nephrolgy s/p dialysis (8) ESRD (end stage renal disease) on dialysis: History of hypertensive nephrosclerosis On dialysis since December 2005 Had multiple fistula, graft complication in the past Present has left upper arm AV fistula [facility] nephrology consulted appreciate input s./p dialysis (9) Paranoid schizophrenia: (10) Thrombocytopenia: Chronic No evidence of bleeding noted Avoid antiplatelets, anticoagulation Monitor daily CBC (11) Hypothyroidism: History of papillary thyroid carcinoma status post thyroidectomy with lymph node dissection by Dr. Grewal on 02/08 Oral supplement of Synthroid is kept on hold secondary to acute abdomen/on NG suction CODE STATUS : DNR/DNI Brother POA agreeable for short term intubation for surgery /exp Laparatomy pt is intubated for Exp laparatomy today Subjective Plan for exploratory laparotomy today Intubated earlier today by telephone instrument supervisor Physical Exam 2 Vital Signs (Past 24 Hours): Last Vital Signs Temp 36.6 C 11/27/18 05:00 Pulse 98 H 11/27/18 11:13 Resp 14 11/27/18 11:13 BP 85/62 L 11/27/18 06:00 Pulse Ox 97 11/27/18 11:13 Constitutional: + ill appearing intubated Eyes: + anicteric sclerae ENMT: ET TUBE PRESENT Respiratory: no respiratory distress and no labored breathing On mechanical ventilation Cardiovascular: RRR, no murmur, no edema Gastrointestinal (Abdomen): Inspection/Auscultation: + abnormal bowel sounds ( Bowel sounds absent) Musculoskeletal: Extremities: extremities normal to inspection Skin: no rashes, warm and dry Neurologic: sedated /on vent _ (1) Sepsis Sepsis type: sepsis due to unspecified organism Qualified Code(s): A41.9 - Sepsis, unspecified organism (2) Hypotension Hypotension type: unspecified hypotension type Trimester: Qualified Code(s) : I95.9 - Hypotension, unspecified (3) Hypothyroidism Hypothyroidism type: unspecified Qualified Code(s): E03.9 - Hypothyroidism, unspecified
--- NOTE | 2018-11-27 12:25 | XRay Report ---
XR chest 1V portable CLINICAL HISTORY: Respiratory failure COMPARISON STUDY: 11/25/2018 FINDINGS: There is a left subclavian central venous catheter unchanged in position, with its tip in t he right atrium.. There is a right-sided central venous catheter with its tip in the superior vena ca va.[ There is a nasogastric tube which passes into the stomach. The stomach appears located above the diaphragm, and a hiatal hernia is suspected. There is an endotracheal tube positioned 37 mm above th e mily. The heart is enlarged. There is mild central vascular prominence unchanged the prior study. There is mild basilar atelectasis. There is no lobar consolidation. IMPRESSION: 1. Interval placement of an endotracheal tube which is positioned 37 mm above the mily 2. Nasogastric tube positioned within a hiatal hernia. Electronically signed by: Eagle Trujillo M.D. 11/27/2018 12:23 PM
[2018-11-27 12:36] LABS: Base Excess VBG 3.6 mEq/L; Oxygen Saturation VBG 64.5 %; pH VBG 7.37 (7.36-7.41)
[2018-11-27] MEDS ORDERED: ETOMIDATE 2 MG/ML 20 ML VIAL IV ONE (12:36)
[2018-11-27] MEDS ORDERED: ROCURONIUM BROMIDE 10 MG/ML 10 ML VIAL IV ONE (12:36)
[2018-11-27] MEDS: PANTOprazole 40 MG in SYRINGE 0 ML IV SCH (12:44)
[2018-11-27] MEDS ORDERED: SUCCINYLCHOLINE CHLORIDE 20 MG/ML 10 ML VIAL ONE (13:02)
[2018-11-27] MEDS ORDERED: ROCURONIUM BROMIDE 10 MG/ML 5 ML VIAL ONE (13:02)
[2018-11-27] MEDS ORDERED: ONDANSETRON INJ 2 MG/ML 2 ML VIAL ONE (13:02)
[2018-11-27] MEDS ORDERED: NEOSTIGMINE METHYLSULFATE 5 MG/5 ML SYR ONE (13:02)
[2018-11-27] MEDS ORDERED: MIDAZOLAM HCL 1 MG/ML 2ML VIAL ONE (13:02)
[2018-11-27] MEDS ORDERED: PROPOFOL IV EMULSION 10 MG/ML 20 ML VIAL IV ONE (13:02)
[2018-11-27] MEDS ORDERED: LIDOCAINE HCL 2% 2 ML VIAL/AMP(20MG/ML) INFIL ONE (13:02)
[2018-11-27] MEDS ORDERED: DEXAMETHASONE SOD INJ 4 MG/ML VIAL ONE (13:02)
[2018-11-27] MEDS ORDERED: fentaNYL citrate 100 MCG/2 ML VIAL ONE ×2 (13:02→14:03)
[2018-11-27] MEDS ORDERED: CISATRACURIUM BESYLATE IV SOLN 2 MG/ML 10 ML VIAL IV ONE (13:03)
[2018-11-27] MEDS ORDERED: ALBUMIN HUMAN 5% 12.5 GM/250 ML VIAL IV ONE (13:06)
--- NOTE | 2018-11-27 14:42 | Post Operative Brief Note ---
Immediate Post Op Note v1 Date of Surgery November 27, 2018 Pre & Post Diagnosis Operation Date: 11/27/18 13:50 Pre-Op Diagnosis: SEVERE SEPSIS, SMALL BOWEL OBSTRUCTION Post-Op Diagnosis: SEVERE SEPSIS, SMALL BOWEL OBSTRUCTION Procedure Operation Date: 11/27/18 13:50 Actual Procedures p Exploratory Laparotomy, Excision intraluminal mass, biopsy of mesenteric mass( Not Applicable) - Alberto You MD, FACS Surgeon Alberto You MD, FACS [facility] jennifer causey Estimated Blood Loss 15 Findings Consistent with Post-Op Diagnosis
--- NOTE | 2018-11-27 14:56 | Pharmacy Report ---
Pharmacy Abx Dose Short Note - Date of Service November 27, 2018 - Assessment & Plan Assessment * 78 year old M receiving Zosyn and vancomycin for treatment of sepsis 2nd intra -abdominal vs. other. Requiring phenylephrine to maintain BP. Ex lap planned for today. * 1 of 2 blood cultures with GPC * Chronic HD as outpatient. Last HD as inpatient 11/26. Next anticipated 11/28 Vancomycin * Random level today 16.9 mcg/mL. Would prefer to avoid subtherapeutic levels due to severity of illness / pressor requirement * Will give very small dose today to ensure level does not become subtherapeutic prior to planned HD tomorrow * Will obtain repeat random level with AM labs tomorrow Plan * Vancomycin 500 mg IV x1 * Random level tomorrow w AM labs Pharmacy will continue to follow and will adjust dose/frequency as necessary. Thank you.
[2018-11-27] MEDS ORDERED: VANCOMYCIN HCL 500 MG in 0.9 % SODIUM CHLORIDE 100 ML IV ONE (15:00)
--- NOTE | 2018-11-27 15:04 | Operative Report ---
Post Operative Report Date of Surgery November 27, 2018 Pre & Post Diagnosis Operation Date: 11/27/18 13:50 Pre-Op Diagnosis: SEVERE SEPSIS, SMALL BOWEL OBSTRUCTION Post-Op Diagnosis: SEVERE SEPSIS, SMALL BOWEL OBSTRUCTION Procedure Operation Date: 11/27/18 13:50 Actual Procedures p Exploratory Laparotomy, Excision intraluminal mass, biopsy of mesenteric mass( Not Applicable) - Alberto You MD, FACS Surgeon Alberto You MD, FACS Child & Adolescent Psychiatrist jennifer cabrera Estimated Blood Loss 15 Findings Consistent with Post-Op Diagnosis Specimens small bowel content 0.5 cm mesentery nodule(benign by frozen section) The patient was transferred from the intensive care intubated to the operating room and probably anesthetized the abdomen was prepped with Betadine solution and properly draped a timeout was had made a small incision approximately 3 inches long to the left of the umbilicus towards the pubis deepened through subcutaneous tissue patient had a very less abdominal wall very little subcutaneous tissue we entered the peritoneal cavity without any difficulty could see the small bowel of normal caliber but thickened and dilated. We at this point were able then to try to milk the contents of the bowel out of the abdomen which we did end in the distal ileum skin in the distal jejunum proximal ileum there is a dense demarcation between the dilated proximal bowel and distally although there was no evidence of any external compression there was no evidence of any palpable internal mass at the site there was no ischemia as we milk milk this throughout I could feel an area that was approximately half an inch in size intraluminal near the transition zone and at this point I was not sure if this was related to possibly an intraluminal mass that was causing the instruction or an intussusception there an intestinal clamp was placed to exteriorized that area while we made a small quarter of an inch incision transversely in this loop of small bowel and treated there was some liquid contents easily evacuated then I was able to milk this area through and what appeared to be was about a quarter of a centimeter size irregular tissue consistent with almost all fibrous bezoar did not have the aspect of any malignancy we then closed the enterotomy twice double layer with 3 interrupted silk suture we continued distally all the way to the cecum there was no other palpable masses appreciated there is no evidence of any obstruction was similarly then felt the colon the IMC and the colon was fine the descending colon was fine down the sigmoid area I can feel palpable mass adherent with adhesions to the sidewall we were able to stop by dividing slightly the peritoneal attachments laterally and we delivered this mass that had some diverticular changes proximal and distally was not sure if this was a diverticular stricture with possibility of malignancy but having said that this was not the primary problem with this gentleman since the colon was not distended and the primary distention was just into the small bowel there at this time we elected not to address this issue. We also identified about a half a centimeter mass hard in the mesentery of the distal small bowel it was white was quite sclerotic I excised as thinking the possibility could this be an implant from a carcinoid center for frozen section and this was benign fibrous tissue from an old hematoma the abdomen was then checked for hemostasis appear satisfactory we closed the wound with retention suture #5 Mersilene 4 interrupted that would be tied over a bolster and #1 PDS continuous fashion chris for skin edges dressing was applied procedure was tolerated well by the patient estimated blood loss approximately 15 cc addendum at the time of this dictation I called the brother Buddy joiner area code [phone] and was able to discuss the operative findings with with him addendum B Leonides CABRERA was present throughout the procedure helping retraction closure wound closure
--- NOTE | 2018-11-27 15:06 | Anesthesiology Progress Note ---
Date of Service November 27, 2018 Anesthesia Post Procedure Vital Signs Vital Signs: Temp Pulse Pulse Pulse Resp BP BP 11/27/18 13:06 94 H 14 108/52 L 11/27/18 11:13 98 H 14 11/27/18 06:00 102 H 20 11/27/18 05:00 36.6 C 98 H 22 11/27/18 04:00 36.6 C 98 H 24 11/27/18 02:21 91 H 22 11/26/18 20:00 36.6 C 111 H 24 11/26/18 18:45 112 H 93/75 L 11/26/18 18:40 110 H 63/40 L 11/26/18 18:31 104 H 93/75 L 11/26/18 18:01 109 H 103/62 11/26/18 17:31 112 H 99/51 L 11/26/18 17:28 112 H 78/26 L 11/26/18 17:01 106 H 11/26/18 16:43 121 H 60/40 L 11/26/18 16:16 125 H 73/51 L 11/26/18 15:31 124 H 108/39 L BP Pulse Ox 11/27/18 13:06 97 11/27/18 11:13 97 11/27/18 06:00 85/62 L 92 11/27/18 05:00 112/51 L 95 11/27/18 04:00 98/53 L 96 11/27/18 02:21 78/40 L 91 11/26/18 20:00 77/45 L 96 11/26/18 18:45 92 11/26/18 18:40 87 L 11/26/18 18:31 90 11/26/18 18:01 87 L 11/26/18 17:31 99 11/26/18 17:28 11/26/18 17:01 11/26/18 16:43 95 11/26/18 16:16 98 11/26/18 15:31 96 Pain Intensity Bilateral Abdomen: Pain Intensity: 2 Notes Mental Status: see notes below Patient Amnestic to Procedure: Yes Nausea / Vomiting: adequately controlled Pain: adequately controlled Airway Patency, RR, SpO2: stable & adequate BP & HR: stable & adequate and see Notes below Hydration State: stable & adequate Anesthetic Complications: no major complications apparent and Pt Satisfied with anesthetic care Notes: The patient was transported intubated on monitors to the OR. He was on a phenylephrine gtt at 2 mcg/kg/min which was continued to the OR. During the procedure while receiving sevoflurane, the phenylephrine gtt was increased to 3 mcg/kg/min. After the procedure and discontinuation of volatile anesthetic, the gtt was decreased back to 2 mcg/kg/min. The patient was otherwise stable during the procedure. He was transported on monitors and intubated back to the ICU where he remains on the ventilator. Dr. Hemphill was given report.
--- NOTE | 2018-11-27 15:22 | Critical Care Progress Note ---
Date of Service November 27, 2018 Assessment & Plan (1) Small bowel obstruction: Impression: 1. High-grade small bowel obstruction. 2. End-stage renal disease on hemodialysis last dose was yesterday. 3. Hyperkalemia secondary to dehydration and end-stage renal disease. Resolved with dialysis. 4. Schizophrenia, mental retardation and dementia. 5. sepsis, the patient meets the criteria but the source difficult to find, small bowel obstruction should not be the source. Improving. 6. Tachycardia, related to norepinephrine as well as fluid shift. 7. Delirium, multifactorial, unable to guard his airway requiring intubation. Plan: 1. Continue Zosyn renally adjusted dose, appreciate pharmacy input. 2. Hemodialysis per renal. 3. Appreciate surgical input, patient is going to the OR for ex lap. 4. A line was placed in the left femoral, the right radial was not functional. Done emergently as the patient is going to the OR. 5. Intubated the patient due to inability to guard his airways. 6. Continue Jacob-Synephrine to map greater than 50. 7. Placement of NG tube suction. 8. DVT and GI prophylaxis. 9. Remains n.p.o. 10. Continue Cogentin scheduled and Haldol as needed. 11. I will keep the patient intubated for now. 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 13. Appreciate renal consult. Hemodialysis today. 14. Discussed with the staff on rounds and with Dr. Mascorro. 15. Continue ICU monitoring. 16. The patient remains DNR. 17. Discontinue morphine and Ativan. 18. Fentanyl drip. 19. The patient has been without feeding for at least 6 days, even from prior to his admission. Will discuss with surgery to start TPN. 20. Nutrition consult appreciated. Thank you, CCM time was 45 minutes excluding procedure time. Subjective The patient become more confused, overnight, requiring morphine and Ativan, the patient today in the morning has become more somnolent, agitated at the time, not guarding who is airways as well. He had macroglossia which is interfering with his respiratory status. Blood pressure was difficult to obtain as a line was not functioning today. Review of system was not obtainable. Physical Exam 2 Vital Signs (Past 24 Hours): Last Vital Signs Temp 36.6 C 11/27/18 05:00 Pulse 81 11/27/18 15:08 Resp 14 11/27/18 15:08 BP 108/52 L 11/27/18 13:06 Pulse Ox 99 11/27/18 15:08 Physical Exam: Vital signs remains at the borderline, blood pressure is not obtainable as mentioned above. Heart rate was 110 sinus tach, positive JVP, S1- S2 regular rate and rhythm, distant rhonchi bilaterally, abdomen soft but tender mainly in the lower part, no edema. Results & Data Laboratory Results Labs were reviewed which showed BUN/creatinine elevated, white count is also slightly elevated. Diagnostic Findings Chest x-ray did not show an infiltrate, reviewed after patient been intubated, ET tube was in good position.
--- NOTE | 2018-11-27 15:23 | Procedure Note ---
Procedure Note Date of Service November 27, 2018 Note Intubation done emergently as the patient was not able to guard his airway Z due to altered mental status. The patient was placed in supine position, oral airway was used, the patient monitored in ICU bed 6 with ICU style of monitoring , the patient was bagged with Ambu bag for 2 minutes until O2 sat above the 95% , the patient was induced with 12 mg of etomidate and 50 mg of rocuronium. Using a #3 blade, #8 ET tube was placed to 22 cm, secured with 2 Polder, equal breath sounds, and end-tidal CO2 was yellow. No immediate complication. Confirmed with chest x-ray. Tolerated the procedure well.
--- NOTE | 2018-11-27 15:24 | Procedure Note ---
Procedure Note Date of Service November 27, 2018 Note A line was placed in the left femoral area, right radial was attempted without the ability to place an A-line, the previous a line was nonfunctional. The procedure was done emergently as the patient was going to the OR for blood pressure monitoring. The patient left groin area under strict sterile field was prepped with chlorhexidine and injected with 5 mL 1% lidocaine, using Seldinger technique, and a femoral A-line, was placed to the left femoral area with one attempt, did not require ultrasound. No dilator and no scalpel was used. The line was placed and connected to the monitor a waves were noted. No immediate complication and no hematoma. Covered with surgical dressing properly.
[2018-11-27 15:55] LABS: iSTAT Arterial Blood Gas HCO3 27 meg/L (19-24); iSTAT Carbon Dioxide 28 mEq/l (24-31); iSTAT FiO2 45 %
[2018-11-27] MEDS: NORMOSOL-R 1,000 ML IV SCH (16:26)
[2018-11-27] MEDS: HEPARIN SOD 5,000 UNIT/0.5 ML VIAL SQ SCH (21:01)
[2018-11-27] MEDS ORDERED: VANCOMYCIN HCL 500 MG in SODIUM CHLORIDE 0.9% 250 ML IV ONE (21:36)
[2018-11-28] MEDS: PHENYLEPHRINE HCL 40 MG in DEXTROSE 5% 500 ML IV SCH ×2 (00:21→05:34)
[2018-11-28] MEDS: BENZTROPINE MESYLATE 1 MG/ML 2 ML AMP IV SCH ×2 (04:15→16:13)
[2018-11-28 04:56] LABS: Hematocrit (blood only) 38.1 % (42-52); Hemoglobin 12.6 g/dL (14.0-18.0); Mean Corpuscular Hgb Conc 33.1 g/dL (32-36); Mean Corpuscular Volume 101.6 fL (80-100); Nucleated RBC # (auto) 0.04 K/uL (0-0); Nucleated RBC % (auto) 0.4 %; RDW Coefficient of Variation 15.3 % (11.5-14.5); RDW Standard Deviation 56.7 fL (36.4-46.3); Red Blood Count 3.75 M/uL (4.7-6.1); White Blood Count 10.29 K/uL (4.8-10.8)
[2018-11-28 05:33] LABS: Albumin Globulin Ratio 0.6 (0.9-2); Albumin Level 2.1 gm/dl (3.4-5.0); BUN Creatinine Ratio 8.4 (10-20); Bilirubin,Total 1.3 mg/dl (0.1-1); Calcium 6.9 mg/dl (8.5-10.1); Est GFR (African American) 7.8; Est GFR (Non-African American) 6.8; Globulin 3.8 gm/dl (2.5-4.0); Phosphorus 4.3 mg/dl (2.5-4.9); Potassium 5.4 mmol/L (3.5-5.1); Total Protein 5.9 gm/dl (6.4-8.2)
[2018-11-28] MEDS: PIPERACILLIN/TAZOBACTAM 3.375 GM in DEXTROSE 5% 100 ML IV SCH ×2 (05:35→17:19)
[2018-11-28 05:37] LABS: Mean Platelet Volume 10.7 fL (7.4-10.4); Platelet Count 88 K/uL (130-400)
--- NOTE | 2018-11-28 07:53 | Anesthesiology Progress Note ---
Date of Service November 28, 2018 Anesthesia Post Procedure Vital Signs Vital Signs: Temp Pulse Pulse Resp BP BP BP 11/28/18 07:45 94 H 17 11/28/18 05:26 96 H 15 11/28/18 04:12 95 H 105/44 L 161/48 H 11/28/18 02:20 100 H 17 11/28/18 00:08 95 H 35 H 105/44 L 153/56 H 11/27/18 23:20 94 H 15 11/27/18 20:00 95 H 36 H 109/50 L 141/61 H 11/27/18 19:45 104 H 14 11/27/18 18:01 84 131/64 11/27/18 17:06 36.7 C 82 146/63 H 11/27/18 16:59 83 14 11/27/18 16:46 92 H 173/96 H 11/27/18 16:31 89 167/41 H 11/27/18 16:26 96 H 168/93 H 11/27/18 16:16 94 H 184/56 H 11/27/18 16:11 93 H 173/85 H 11/27/18 16:01 94 H 131/108 H 11/27/18 15:56 85 170/69 H 11/27/18 15:46 89 179/70 H 11/27/18 15:41 91 H 175/78 H 11/27/18 15:24 83 164/99 H 11/27/18 15:21 86 175/94 H 11/27/18 15:16 85 163/70 H 11/27/18 15:08 81 14 11/27/18 15:01 36.2 C L 82 131/77 11/27/18 15:00 79 11/27/18 13:06 94 H 14 108/52 L 11/27/18 11:13 98 H 14 Pulse Ox 11/28/18 07:45 94 11/28/18 05:26 98 11/28/18 04:12 95 11/28/18 02:20 94 11/28/18 00:08 97 11/27/18 23:20 96 11/27/18 20:00 100 11/27/18 19:45 98 11/27/18 18:01 100 11/27/18 17:06 99 11/27/18 16:59 100 11/27/18 16:46 99 12/27/18 16:31 100 11/27/18 16:26 100 11/27/18 16:16 100 11/27/18 16:11 95 11/27/18 16:01 98 11/27/18 15:56 99 11/27/18 15:46 99 11/27/18 15:41 99 11/27/18 15:24 99 11/27/18 15:21 99 11/27/18 15:16 100 11/27/18 15:08 99 11/27/18 15:01 99 11/27/18 15:00 99 11/27/18 13:06 97 11/27/18 11:13 97 Pain Intensity Bilateral Abdomen: Pain Intensity: 1 Notes Mental Status: see notes below (intubated and sedated) Patient Amnestic to Procedure: Yes Nausea / Vomiting: adequately controlled Pain: adequately controlled Airway Patency, RR, SpO2: see Notes below (intubated on ventilator) BP & HR: stable & adequate Hydration State: stable & adequate Anesthetic Complications: no major complications apparent
--- NOTE | 2018-11-28 08:21 | Surgery Progress Note ---
Date of Service November 28, 2018 Assessment & Plan (1) SBO (small bowel obstruction): POD 1 ex lap, excision intraluminal mass, mesenteric biopsy NG output decreased, continue until extubated vent, ESRD, electrolyte abnormalities per medical teams Subjective remains intubated, sedated Physical Exam 2 Vital Signs (Past 24 Hours): Last Vital Signs Temp 37.1 C 11/28/18 07:00 Pulse 95 H 11/28/18 08:04 Resp 17 11/28/18 07:45 BP 82/53 L 11/28/18 08:04 Pulse Ox 95 11/28/18 08:04 Gastrointestinal (Abdomen): Inspection/Auscultation: + abdomen distended (less ) and + abdominal surgical incision (clean, dry) Percussion/Palpation: abdomen soft NG 75 cc overnight
--- NOTE | 2018-11-28 08:35 | Hospitalist Progress Note ---
Date of Service November 28, 2018 Assessment & Plan (1) Small bowel obstruction: SBO (small bowel obstruction): Status post exploratory laparotomy on 11/27/[address] Newberry POD 1 ex lap, excision intraluminal mass, mesenteric biopsy NG output decreased, Pathology mesenteric mass still pending Sent from assisted living, secondary to nausea vomiting, abdominal discomfort CT abdomen pelvis shows high-grade small bowel obstruction with dilated small bowel loop 4.5 cm, with a transition zone NG tube inserted in ER, status post continued drainage of large amount of dark bilious fluid/gastric secretion Surgery following no improvement after continued NG suction (2) Hypovolemic shock: present on admission due to severe sepsis / small bowel obstruction /dehydration with large amount of NG suction out put received IV fluid resuscitation, S/P Rt IJ central line placement by floor tiling professional rt radial arterial line placed Was on Levophed , and to wean off as tolerated Nephrology following closely Patient is on dialysis chronically Will need continued dialysis for electrolyte and volume status management (3) Sepsis: Presented with severe sepsis due to small bowel obstruction / meets criteria : hypotensive shock , elevated lactic acid , electrolyte deranagements blood culture : gram positive cocci was started empirically with IV Zosyn Vancomycin added for gram positive coverage ID eval requested -appreciate input (4) Dehydration: (5) Hyperkalemia: Due to combination of dehydration, history of end-stage renal disease on dialysis Patient with with hyperkalemia EKG does not show any peaked T waves appreciate input from Nephrology pt will need continue dialysis to adjust electrolytes (6) Hypotension: secondary to severe sepsis dehydration, small bowel obstruction Lactic acid was elevated markedly With combination of severe dehydration/in setting of end-stage renal disease on dialysis, lactic acid level improved after aggressive IV fluid resuscitation Status post exploratory laparotomy with excision of intra-lumen mass Appreciate input from floor tiling professional Patient has central line, and arterial line for close monitoring of hemodynamics (7) Electrolyte abnormality: presented with lactic acidemia : hypotension , severe sespsis Hyperkalemia apprecaite input from Nephrolgy s/p dialysis (8) ESRD (end stage renal disease) on dialysis: History of hypertensive nephrosclerosis On dialysis since December 2005 Had multiple fistula, graft complication in the past Present has left upper arm AV fistula Patient follows with [facility] nephrology consulted appreciate input s./p dialysis (9) Paranoid schizophrenia: Continue to hold oral meds, patient admitted with acute abdomen (10) Thrombocytopenia: Chronic No evidence of bleeding noted Avoid antiplatelets, anticoagulation Monitor daily CBC (11) Hypothyroidism: History of papillary thyroid carcinoma status post thyroidectomy with lymph node dissection by Dr. Grewal on 02/08 Oral supplement of Synthroid is kept on hold secondary to acute abdomen/on NG suction CODE STATUS : DNR/DNI Brother KENNEDI agreeable for short term intubation for surgery /exp Laparatomy Subjective Patient remains intubated on vent, status post exploratory laparotomy yesterday, NG tube has minimal drainage, Patient remains afebrile Physical Exam 2 Vital Signs (Past 24 Hours): Last Vital Signs Temp 37.1 C 11/28/18 07:00 Pulse 95 H 11/28/18 08:04 Resp 17 11/28/18 07:45 BP 82/53 L 11/28/18 08:04 Pulse Ox 95 11/28/18 08:04 Constitutional: + ill appearing Eyes: + anicteric sclerae ENMT: Mouth: + dry oral mucous membranes Respiratory: normal respiratory effort, lungs clear to auscultation no respiratory distress and no labored breathing Cardiovascular: RRR, no murmur, no edema Gastrointestinal (Abdomen): Inspection/Auscultation: + abdominal surgical incision (Mid abdominal surgical incision bandage present, no drainage, no surrounding swelling or erythema noted) and + hypoactive bowel sounds; + abnormal bowel sounds (Bowel sounds absent) Musculoskeletal: Extremities: extremities normal to inspection Skin: no rashes, warm and dry Neurologic: moves all extremities and + confused (Baseline mental retardation/ dementia); no focal motor deficits Speech / Cognition: + abnormal cognition ( Baseline mental retardation/dementia) _ (1) Hypothyroidism Hypothyroidism type: unspecified Qualified Code(s): E03.9 - Hypothyroidism, unspecified (2) Sepsis Sepsis type: sepsis due to unspecified organism Qualified Code(s): A41.9 - Sepsis, unspecified organism (3) Hypotension Hypotension type: unspecified hypotension type Trimester: Qualified Code(s) : I95.9 - Hypotension, unspecified
--- NOTE | 2018-11-28 08:56 | Nephrology Progress Note ---
Date of Service November 28, 2018 Assessment & Plan (1) ESRD (end stage renal disease) on dialysis: Chester has end-stage renal disease, has been on dialysis on Saturday, Saturday, Saturday via left arm AV graft. Admitted to the hospital on 2017 with high-grade small bowel obstruction when he presented with 2 days history of vomiting and shortness of breath. On admission he was hypotensive with elevated lactate. Had hyperkalemia which was initially managed conservatively with improvement of potassium overnight to 5.2 from 6.2 on admission. The had 4 liters NG output, no sign of volume overload. Remained persistently hypotensive, requiring pressor support. Had exploratory laparotomy on 11/27/18 as conservative Mx for high grade small bowel obstruction failed. Still intubated, requiring pressor, but awake and tolerating bCPAP trial this morning. --will plan for dialysis this morning with 2 K bath as his regular schedule, UF as tolerated as has not been having any UF since admission but still hypotensive --hold BILL as Hb >11 --dose medications for GFR less than 10 Will follow (2) Hyperkalemia: (3) Small bowel obstruction: (4) Hypotension: Subjective Chester was seen and examined in ICU this am. Remain hypotensive, on pressor. Currently he is awake, on CPAP tolerating well. Electrolyte acceptable. Physical Exam 2 Vital Signs (Past 24 Hours): Last Vital Signs Temp 37.1 C 11/28/18 07:00 Pulse 95 H 11/28/18 08:04 Resp 17 11/28/18 07:45 BP 82/53 L 11/28/18 08:04 Pulse Ox 95 11/28/18 08:04 Constitutional: + ill appearing (Intubated) Respiratory: normal respiratory effort, lungs clear to auscultation Cardiovascular: RRR, no murmur, no edema Neurologic: awake _ (1) Hypotension Hypotension type: unspecified hypotension type Trimester: Qualified Code(s) : I95.9 - Hypotension, unspecified
[2018-11-28] MEDS: HEPARIN SOD 5,000 UNIT/0.5 ML VIAL SQ SCH ×2 (09:02→20:41)
[2018-11-28] MEDS: PHENYLEPHRINE HCL IV SCH (09:03)
[2018-11-28] MEDS: DEXTROSE 5% IV SCH (09:03)
--- NOTE | 2018-11-28 09:59 | Infectious Disease Progress Nt ---
Date of Service November 28, 2018 Assessment & Plan (1) Positive blood culture: likely contaminant. afebrile. no leukocytosis. could follow off of abx from ID standpoint. Subjective pt s/p ex lap yesterday, mass noted, biopsy pending. remains on zosyn. afebrile. wbc 10, admission blood cultures 1/2 framing manager. no repeat. Physical Exam 2 Vital Signs (Past 24 Hours): Last Vital Signs Temp 37.1 C 11/28/18 09:00 Pulse 103 H 11/28/18 09:30 Resp 17 11/28/18 07:45 BP 92/41 L 11/28/18 09:30 Pulse Ox 95 11/28/18 08:04 Results & Data Laboratory Results Microbiology 11/25/18 11:55 Blood Blood Culture - Preliminary Coag neg staph not lugdunensis 11/25/18 11:45 Blood Blood Culture - Preliminary No growth to date.
[2018-11-28] MEDS: PANTOprazole 40 MG in SYRINGE 0 ML IV SCH (10:55)
[2018-11-28] MEDS ORDERED: fentaNYL citrate 100 MCG/2 ML VIAL IV PRN (11:44)
--- NOTE | 2018-11-28 12:08 | Pharmacy Report ---
Pharmacy Abx Dose Short Note - Date of Service November 28, 2018 - Assessment & Plan Assessment * 78 year old M receiving Zosyn and vancomycin for treatment of sepsis 2nd intra -abdominal vs. other. Requiring phenylephrine to maintain BP. * 1 of 2 blood cultures with GPC * Chronic HD as outpatient. Last HD as inpatient 11/26. Currently being dialyzed, plan for 4 hours Vancomycin * Random level today 19.6 mcg/mL * Dose of 500 mg yesterday only increased the level by 2.7 mcg/mL (no HD to eliminate). Anticipate increased removal of vancomycin 2nd HD today - will give supplemental dose post-HD at larger amount than yesterday * Will obtain repeat random level with AM labs tomorrow Plan * Vancomycin 750 mg IV x1 * Random level tomorrow w AM labs Pharmacy will continue to follow and will adjust dose/frequency as necessary. Thank you.
--- NOTE | 2018-11-28 12:56 | Critical Care Progress Note ---
Date of Service November 28, 2018 Assessment & Plan (1) Small bowel obstruction: Impression: 1. High-grade small bowel obstruction. 2. End-stage renal disease on hemodialysis last dose was yesterday. 3. Hyperkalemia secondary to dehydration and end-stage renal disease. Resolved with dialysis. 4. Schizophrenia, mental retardation and dementia. 5. sepsis, the patient meets the criteria but the source difficult to find, small bowel obstruction should not be the source. Improving. 6. Tachycardia, related to norepinephrine as well as fluid shift. 7. Delirium, multifactorial, unable to guard his airway requiring intubation. 8. Hiatal hernia. Plan: 1. Continue Zosyn renally adjusted dose, appreciate pharmacy input. 2. Hemodialysis per renal. 3. Discussed with Dr. You, appreciate his input, ex lap did not find evidence for bowel obstruction. 4. I would continue to monitor the blood pressure and maintain the map above than 50. The patient is already end-stage renal disease. The patient is vasculopathic and the blood pressure is difficult to measure even by a line. 5. CPAP trial and extubation today. 6. Continue Jacob-Synephrine to map greater than 50. 7. Discontinue NG tube. 8. DVT and GI prophylaxis. 9. Once extubated the patient will be started on some clear liquid, if tolerable. 10. Continue Cogentin scheduled and Haldol as needed. 11. Discontinue IV fluid. 12. 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 13. Appreciate renal consult. Hemodialysis today. 14. No need for TPN at this point. 15. Continue ICU monitoring. 16. The patient remains DNR. 17. Discontinue morphine and Ativan. 18. Discontinue fentanyl drip. 19. Appreciate nutritional consult. Thank you, CCM time was 45 minutes excluding procedure time. Subjective The patient remains intubated, review of system was not obtainable due to intubation, he is coming off the sedation with fentanyl, currently he has ongoing hemodialysis. Physical Exam 2 Vital Signs (Past 24 Hours): Last Vital Signs Temp 37.1 C 11/28/18 09:00 Pulse 108 H 11/28/18 12:30 Resp 16 11/28/18 12:30 BP 91/46 L 11/28/18 12:30 Pulse Ox 100 11/28/18 12:30 Physical Exam: His vital signs remained stable, he is still on Jacob- Synephrine. S1-S2 regular rate and rhythm. Distant breath sounds. Abdomen is postop but benign. No edema. Results & Data Laboratory Results Labs were reviewed, with elevated BUN and creatinine, hyponatremia and hypokalemia. Hematocrit is stable WBC is stable. Diagnostic Findings No new imaging.
[2018-11-28] MEDS ORDERED: VANCOMYCIN HCL 750 MG in SODIUM CHLORIDE 0.9% 250 ML IV ONE (14:00)
[2018-11-28] MEDS: HALOPERIDOL LACTATE 5 MG/ML 1 ML VIAL IV PRN (16:13)
[2018-11-29] MEDS: BENZTROPINE MESYLATE 1 MG/ML 2 ML AMP IV SCH ×2 (04:22→17:06)
[2018-11-29] MEDS: DEXTROSE 5% IV SCH (04:22)
[2018-11-29] MEDS: PHENYLEPHRINE HCL IV SCH (04:22)
[2018-11-29 04:48] LABS: Hematocrit (blood only) 33.8 % (42-52); Hemoglobin 11.1 g/dL (14.0-18.0); Mean Corpuscular Hgb Conc 32.8 g/dL (32-36); Mean Corpuscular Volume 102.7 fL (80-100); Nucleated RBC # (auto) 0.02 K/uL (0-0); Nucleated RBC % (auto) 0.3 %; RDW Coefficient of Variation 14.8 % (11.5-14.5); RDW Standard Deviation 55.6 fL (36.4-46.3); Red Blood Count 3.29 M/uL (4.7-6.1); White Blood Count 8.56 K/uL (4.8-10.8)
[2018-11-29 04:53] LABS: Mean Platelet Volume 10.4 fL (7.4-10.4); Platelet Count 72 K/uL (130-400)
[2018-11-29 05:10] LABS: Basophils # (auto) 0.02 K/uL (0-0.2); Basophils % (auto) 0.2 %; Eosinophils # (auto) 0.04 K/uL (0-0.5); Eosinophils % (auto) 0.5 %; Immature Granulocytes # (auto) 0.08 K/uL (0.00-0.02); Immature Granulocytes % (auto) 0.9 %; Lymphocytes # (auto) 0.83 K/uL (1.2-3.4); Lymphocytes % (auto) 9.7 %; Monocytes # (auto) 1.35 K/uL (0.11-0.59); Monocytes % (auto) 15.8 %; Neutrophils # (auto) 6.24 K/uL (1.4-6.5); Neutrophils % (auto) 72.9 %; Polychromasia 1+
[2018-11-29 05:22] LABS: Albumin Globulin Ratio 0.5 (0.9-2); BUN Creatinine Ratio 6.7 (10-20); Bilirubin,Total 1.2 mg/dl (0.1-1); Calcium 7.3 mg/dl (8.5-10.1); Creatinine Clr Calc Pharmacy 13.8 ml/min; Est GFR (African American) 12.7; Est GFR (Non-African American) 10.9; Globulin 3.8 gm/dl (2.5-4.0); Phosphorus 4.1 mg/dl (2.5-4.9); Total Protein 5.8 gm/dl (6.4-8.2)
[2018-11-29] MEDS: PIPERACILLIN/TAZOBACTAM 3.375 GM in DEXTROSE 5% 100 ML IV SCH (05:32)
--- NOTE | 2018-11-29 07:54 | Surgery Progress Note ---
Date of Service November 29, 2018 Assessment & Plan (1) Small bowel obstruction: -extubated and ng removed -will begin sips/chips with some bowel sounds present Present on Admission?: No Subjective Gastrointestinal: no nausea and no vomiting Alert without distress Physical Exam 2 Vital Signs (Past 24 Hours): Last Vital Signs Temp 36.4 C L 11/29/18 02:08 Pulse 106 H 11/29/18 06:15 Resp 19 11/29/18 06:15 BP 74/53 L 11/29/18 06:15 Pulse Ox 86 L 11/29/18 06:15 Constitutional: no acute distress Respiratory: Auscultation: + diminished lung sounds Cardiovascular: Rate/Rhythm: + tachycardic; + abnormal rhythm Gastrointestinal (Abdomen): Inspection/Auscultation: normal bowel sounds and + abdominal surgical incision Percussion/Palpation: + abdomen tender (mild) and abdomen soft Psychiatric: Orientation: alert and cooperative
[2018-11-29] MEDS ORDERED: OXYCODONE HCL IR 5 MG TAB (IMMEDIATE RELEASE) PO PRN (08:52)
[2018-11-29] MEDS ORDERED: TRIHEXYPHENIDYL HCL 2 MG TAB PO SCH ×2 (09:00→21:00)
[2018-11-29] MEDS ORDERED: PANTOprazole 40 MG TAB PO SCH (09:00)
[2018-11-29] MEDS ORDERED: ATORVASTATIN 20 MG TAB PO SCH (09:00)
--- NOTE | 2018-11-29 09:40 | Critical Care Progress Note ---
Date of Service November 29, 2018 Assessment & Plan (1) Small bowel obstruction: Impression: 1. High-grade small bowel obstruction. Resolved. 2. End-stage renal disease on hemodialysis, appreciate Dr. De La Cruz input. 3. Hyperkalemia secondary to dehydration and end-stage renal disease. Resolved. 4. Schizophrenia, mental retardation and dementia. Stable. 5. sepsis, resolved. Off antibiotics. 6. A. fib, history of paroxysmal A. fib, rate of 120. 7. Thrombocytopenia, while on heparin, likely related to recent sepsis, dialysis, less likely heparin. 8. Hiatal hernia. Plan: 1. Discontinue Zosyn. 2. Hemodialysis per renal. Appreciated. 3. Start oral intake per surgery. Adjust the diet to renal requirement. 4. His blood pressure is difficult to measure due to vasculopathic state, with or without pressors his blood pressure has been between 60-80 systolic, his map has been also difficult to measure as well. He is mentating very well and his blood pressure is disproportionate to his mental status, I would not follow his blood pressure number as it was very difficult to measure, will follow his mentation. 5. Remains extubated on nasal cannula only. 6. Discontinue Jacob-Synephrine, I did not show any improvement in the blood pressure even at high doses. 7. Discontinue vancomycin. 8. Venodyne boots. 9. EKG was done, the patient is definitely in A. fib, anticoagulation would be risky given his risk of fall, I will discuss with pharmacy to start him on Eliquis 2.5 twice daily. 10. Change Cogentin to p.o. 11. Start the patient on loading dose of dig for rate control, given the fact that we cannot measure his blood pressure. 12. I will add Reglan 5 mg before meals and at bedtime p.o. Given his large hiatal hernia. We will watch for QTC while he is on Haldol as well. 13. Resume his home medications including trihexyphenidyl and atorvastatin. 14. Remove the A-line. 15. Daily labs. 16. The patient remains DNR. 17. Avoid nephrotoxic drugs. 18. Discontinue fentanyl as needed and change it to oxycodone p.o. 19. Nutrition consult. 20. Discussed with the staff on rounds and details. Appreciate their input. Thank you, CCM time was 45 minutes . Subjective The patient remains extubated since yesterday, he open his eyes and follow commands, his blood pressure has been on the low side, although it is not measurable even by the a line or the NBP. The patient with or without pressors remains with blood pressure that difficult to measure. This is likely due to the loss of compliance of his arteries due to peripheral arterial disease. Physical Exam 2 Vital Signs (Past 24 Hours): Last Vital Signs Temp 36.4 C L 11/29/18 02:08 Pulse 106 H 11/29/18 06:15 Resp 19 11/29/18 06:15 BP 74/53 L 11/29/18 06:15 Pulse Ox 86 L 11/29/18 06:15 Physical Exam: Vital signs remained stable except for the blood pressure, developed new onset A. fib, he had a history of paroxysmal A. fib in the past. S1-S2, irregularly irregular, lungs with distant breath sounds, abdomen postop with positive bowel sounds, no edema in the periphery. Results & Data Laboratory Results Labs were reviewed which showed thrombocytopenia with platelets of 72, other labs are within his baseline. Diagnostic Findings No new imaging.
[2018-11-29] MEDS: APIXABAN 2.5 MG TAB PO SCH ×2 (10:05→20:49)
[2018-11-29] MEDS: DIGOXIN 250 MCG in SYRINGE 9 ML IV SCH ×2 (10:05→12:32)
--- NOTE | 2018-11-29 10:43 | Nephrology Progress Note ---
Date of Service November 29, 2018 Assessment & Plan (1) ESRD (end stage renal disease) on dialysis: Chester has ESRD ON IHD MWF at [facility] via L arm Hero graft. He was admitted to the hospital on 11/25 with high-grade SBO. On admission he was hypotensive with elevated lactate and hyperkalemia. Chester required exploratory laparotomy 11/27. PMH: Paranoid schizophrenia on monthly IM Haldol, learning disabled, papillary thyroid CA -- Electrolyte balance is acceptable at this time. Patient remains relatively hypotensive. No acute indication for HD today. Will reassess in am (2) Hypotension: -- Outpatient SBP at HD unit has been 110 - 140 mmHG -- Patient is now off pressor support. He remains mildly hypotensive but awakens to voice and follows commands. Will monitor (3) Anemia: -- Hgb is acceptable. No acute indication for BILL at this time. (4) Small bowel obstruction: -- POD #2 exploratory lap. Patient had a sement of small bowel removed which contained a mass. Histology was benign. (5) S/P admission to ICU (intensive care unit): -- 40 minutes critical care time provided to patient today. Subjective Chester was seen and examined in ICU this am. Medical plan of care was discussed w / the ICU team. staff weapons officer reports that patient was dialyzed yesterday without complication. He is lethargic this am. He did not sleep last night. Chester is no longer on pressor support. SBP has been 80 - 100 mmHG Review of Systems Unable to participate in ROS Physical Exam 2 Vital Signs (Past 24 Hours): Last Vital Signs Temp 36.4 C L 11/29/18 02:08 Pulse 111 H 11/29/18 10:05 Resp 19 11/29/18 06:15 BP 74/53 L 11/29/18 06:15 Pulse Ox 86 L 11/29/18 06:15 Eyes: PERRL, conjunctivae normal, anicteric sclerae Respiratory: normal respiratory effort (coarse breath sounds) Cardiovascular: Rate/Rhythm: + tachycardic L arm HERO graft w/ + bruit Gastrointestinal (Abdomen): No bowel sounds. Clean surgical dressing in place Results & Data Laboratory Results Laboratory Tests 11/29/18 11/29/18 04:29 04:29 WBC 8.56 Hgb 11.1 L Hct 33.8 L Plt Count 72 L Sodium 130 L Potassium 4.0 D Chloride 94 L Carbon Dioxide 25 BUN 31 H Creatinine 4.77 H* D Glucose 69 L Calcium 7.3 L AST 23 ALT 19 Albumin 2.0 L _ (1) Hypotension Hypotension type: unspecified hypotension type Trimester: Qualified Code(s) : I95.9 - Hypotension, unspecified
[2018-11-29] MEDS: METOCLOPRAMIDE HCL 5 MG TABLET PO SCH ×3 (12:32→20:49)
--- NOTE | 2018-11-29 17:37 | Hospitalist Progress Note ---
Date of Service November 29, 2018 Assessment & Plan (1) Small bowel obstruction: SBO (small bowel obstruction): Status post exploratory laparotomy on 11/27/[address] Newberry POD #@ ex lap, excision intraluminal mass, mesenteric biopsy recovering well post op diet advanced to clears Pathology mesenteric mass : SOFT TISSUE, MESENTERIC IMPLANT, EXCISION: - BENIGN DENSE FIBROUS TISSUE WITH CHRONIC INFLAMMATION, SCATTERED CALCIFICATIONS AND FOCAL HEMOSIDERIN DEPOSITION - NEGATIVE FOR MALIGNANCY pt was Sent from assisted living, secondary to nausea vomiting, abdominal discomfort CT abdomen pelvis shows high-grade small bowel obstruction with dilated small bowel loop 4.5 cm, with a transition zone NG tube inserted in ER, status post continued drainage of large amount of dark bilious fluid/gastric secretion s/p Exp laparatomy (2) Hypovolemic shock: BP imporved present on admission due to severe sepsis / small bowel obstruction /dehydration with large amount of NG suction out put received IV fluid resuscitation, S/P Rt IJ central line placement by engineering inspector rt radial arterial line placed Was on Levophed , and to wean off as tolerated Nephrology following closely Patient is on dialysis chronically Will need continued dialysis for electrolyte and volume status management (3) Sepsis: resolved Presented with severe sepsis due to small bowel obstruction / meets criteria : hypotensive shock , elevated lactic acid , electrolyte deranagements blood culture : gram positive cocci was started empirically with IV Zosyn Vancomycin added for gram positive coverage ID eval requested -appreciate input (4) Dehydration: Due to the above, pt started on clears IV d/azalia Volume status will be monitored very closely, patient is on dialysis (5) Hyperkalemia: Due to combination of dehydration, history of end-stage renal disease on dialysis Patient with with hyperkalemia EKG does not show any peaked T waves appreciate input from Nephrology pt will need continue dialysis to adjust electrolytes (6) Hypotension: secondary to severe sepsis dehydration, small bowel obstruction Lactic acid was elevated markedly resolved after IV hydration With combination of severe dehydration/in setting of end-stage renal disease on dialysis, lactic acid level improved after aggressive IV fluid resuscitation Status post exploratory laparotomy with excision of intra-lumen mass Appreciate input from engineering inspector Patient has central line, and arterial line for close monitoring of hemodynamics (7) Electrolyte abnormality: presented with lactic acidemia : hypotension , severe sespsis Hyperkalemia apprecaite input from Nephrolgy s/p dialysis (8) ESRD (end stage renal disease) on dialysis: History of hypertensive nephrosclerosis On dialysis since December 2005 Had multiple fistula, graft complication in the past Present has left upper arm AV fistula Patient follows with [facility] nephrology nephrology consulted appreciate input cont scheduled dialysis (9) Paranoid schizophrenia: Continue to hold oral meds, patient admitted with acute abdomen (10) Thrombocytopenia: Chronic No evidence of bleeding noted Avoid antiplatelets, anticoagulation Monitor daily CBC (11) Hypothyroidism: History of papillary thyroid carcinoma status post thyroidectomy with lymph node dissection by Dr. Grewal on 02/08 Oral supplement of Synthroid is kept on hold secondary to acute abdomen/on NG suction CODE STATUS : DNR/DNI DISPOSITION : lives at assisted living ordered for PT/OT speech eval for concern for aspiration /dysphagia Subjective awake and alert remains confused , trying to climb out of bed no evidence of hypoxia started on clears pt noted to have aspiration on thin liquids able to tolerate Jello speech eval requested stable to be tranferred out of ICU Physical Exam 2 Vital Signs (Past 24 Hours): Last Vital Signs Temp 36.4 C L 11/29/18 02:08 Pulse 116 H 11/29/18 12:32 Resp 19 11/29/18 06:15 BP 74/53 L 11/29/18 06:15 Pulse Ox 86 L 11/29/18 06:15 Constitutional: + ill appearing Eyes: + anicteric sclerae ENMT: Mouth: + dry oral mucous membranes Respiratory: normal respiratory effort, lungs clear to auscultation no respiratory distress and no labored breathing Cardiovascular: RRR, no murmur, no edema Gastrointestinal (Abdomen): Inspection/Auscultation: normal bowel sounds ( Bowel sounds absent) and + abdominal surgical incision (Mid abdominal surgical incision bandage present, no drainage, no surrounding swelling or erythema noted ) Percussion/Palpation: abdomen soft; abdomen nontender Musculoskeletal: Extremities: extremities normal to inspection Skin: no rashes, warm and dry Neurologic: moves all extremities and + confused (Baseline mental retardation/ dementia); no focal motor deficits Speech / Cognition: + abnormal cognition ( Baseline mental retardation/dementia) _ (1) Hypothyroidism Hypothyroidism type: unspecified Qualified Code(s): E03.9 - Hypothyroidism, unspecified (2) Sepsis Sepsis type: sepsis due to unspecified organism Qualified Code(s): A41.9 - Sepsis, unspecified organism (3) Hypotension Hypotension type: unspecified hypotension type Trimester: Qualified Code(s) : I95.9 - Hypotension, unspecified
[2018-11-29] MEDS ORDERED: ACETAMINOPHEN 325 MG TAB PO PRN (18:02)
[2018-11-29] MEDS ORDERED: POLYETHYLENE (MIRALAX) 17 GM PACK PO PRN (18:30)
[2018-11-29] MEDS ORDERED: BENZTROPINE MESYLATE 1 MG TAB PO SCH (21:00)
[2018-11-29] MEDS ORDERED: HALOPERIDOL 5 MG TAB PO SCH (21:00)
[2018-11-30 04:19] LABS: Hematocrit (blood only) 33.9 % (42-52); Hemoglobin 11.1 g/dL (14.0-18.0); Mean Corpuscular Hgb Conc 32.7 g/dL (32-36); Mean Corpuscular Volume 102.1 fL (80-100); RDW Coefficient of Variation 14.8 % (11.5-14.5); RDW Standard Deviation 54.1 fL (36.4-46.3); Red Blood Count 3.32 M/uL (4.7-6.1)
[2018-11-30 04:28] LABS: Mean Platelet Volume 10.2 fL (7.4-10.4); Platelet Count 88 K/uL (130-400)
[2018-11-30 04:53] LABS: BUN Creatinine Ratio 7.2 (10-20); Calcium 7.9 mg/dl (8.5-10.1); Creatinine Clr Calc Pharmacy 9.8 ml/min; Est GFR (African American) 8.9; Est GFR (Non-African American) 7.7; Potassium 4.2 mmol/L (3.5-5.1)
[2018-11-30] MEDS: HALOPERIDOL LACTATE 5 MG/ML 1 ML VIAL IV PRN (05:22)
[2018-11-30] MEDS ORDERED: LEVOTHYROXINE SODIUM 200 MCG TABLET PO SCH ×2 (06:30)
--- NOTE | 2018-11-30 08:03 | Hospitalist Progress Note ---
Date of Service November 30, 2018 Assessment & Plan (1) : pt at around 6: 40 am today 11/30/2018 was tachycardiac agitated later became bradycardic leading to asystole pt was DNR/DNI actual cause of uncertain : D/D: -possible Pulmonary embolism ( very high risk ) / possible aspiration -cardiac arrythmia with episode of tachycardia , leading to bradycadia - cardiopulmoary arrest presented with severe sepsis /small bowel obstruction / hypotensive shock due to sepsis /severe hypovolumia requiring pressors /hyperkalemia s/p dialysis ( ESRD on HD since 2005 ) pt was post op Day #4 for exp laparatomy had stable recovery post op extubated on POD#1 was on 02 via nasal canula with stable respiratory status was started on clears , noted to have aspiration on thin liquids ordered for NPO pending speech eval high risk for DVT , was not started on pharmacological anticoagulation on admission due to acute abdomen /plan or surgery was started on Eliquis on 11/29/18 by Line [employer] Poler for Afib (2) Small bowel obstruction: SBO (small bowel obstruction): Status post exploratory laparotomy on 11/27/[address] Newberry POD #@ ex lap, excision intraluminal mass, mesenteric biopsy Pathology mesenteric mass : SOFT TISSUE, MESENTERIC IMPLANT, EXCISION: - BENIGN DENSE FIBROUS TISSUE WITH CHRONIC INFLAMMATION, SCATTERED CALCIFICATIONS AND FOCAL HEMOSIDERIN DEPOSITION - NEGATIVE FOR MALIGNANCY pt was Sent from assisted living, secondary to nausea vomiting, abdominal discomfort CT abdomen pelvis shows high-grade small bowel obstruction with dilated small bowel loop 4.5 cm, with a transition zone NG tube inserted in ER, status post continued drainage of large amount of dark bilious fluid/gastric secretion s/p Exp laparatomy (3) Hypovolemic shock: present on admission due to severe sepsis / small bowel obstruction /dehydration with large amount of NG suction out put received IV fluid resuscitation, /required Iv Levophed S/P Rt IJ central line placement by manager of program rt radial arterial line placed Nephrology following closely Patient is on dialysis chronically Will need continued dialysis for electrolyte and volume status management (4) Sepsis: resolved Presented with severe sepsis due to small bowel obstruction / criteria : hypotensive shock , elevated lactic acid , electrolyte deranagements blood culture : gram positive cocci (5) Dehydration: (6) Hyperkalemia: Due to combination of dehydration, history of end-stage renal disease on dialysis Patient with with hyperkalemia K level normalized with dialysis (7) Hypotension: secondary to severe sepsis dehydration, small bowel obstruction Lactic acid was elevated markedly resolved after IV hydration With combination of severe dehydration/in setting of end-stage renal disease on dialysis, lactic acid level improved after aggressive IV fluid resuscitation Status post exploratory laparotomy with excision of intra-lumen mass Appreciate input from manager of program (8) Electrolyte abnormality: presented with lactic acidemia : hypotension , severe sespsis Hyperkalemia apprecaite input from Nephrolgy s/p dialysis (9) ESRD (end stage renal disease) on dialysis: History of hypertensive nephrosclerosis On dialysis since December 2005 Had multiple fistula, graft complication in the past Present has left upper arm AV fistula Patient follows with [facility] nephrology nephrology consulted appreciate input was cntinued with scheduled dialysis (10) Paranoid schizophrenia: oral meds resumed after surgery (11) Thrombocytopenia: (12) Hypothyroidism: History of papillary thyroid carcinoma status post thyroidectomy with lymph node dissection by Dr. Grewal on 02/08 Oral supplement of Synthroid is kept on hold secondary to acute abdomen CODE STATUS : DNR/DNI PT ON 11/30/18 @ 6: 30 AM Subjective Pt at 6: 40 am this AM was agitated overnight early this AM pt was agitated , thrashing , trying to get out of bed was tachycardic in 120's at 6: 32 am pt became bradycardic few mins later went into asystole pt is DNR/DNI pt at 6: 40 am house calls nurse practitioner physician Dr Ray pronounced at bedside at 6:40 am pt's Legal Guardian from [facility] /assisted care facility : House of care Mr Anup Browne ( # [phone] ) updated over phone unable reach pt's Brother Mr Buddy Jeffries ( # [phone] ) over phone Brother lives in [facility] , drove to [place] visited in ICU yesterday brother is supposed to visit Mr Jeffries prior to heading back to [place] will update family as they arrive Physical Exam 2 Vital Signs (Past 24 Hours): Last Vital Signs Temp 36.6 C 11/30/18 00:01 Pulse 108 H 11/30/18 03:49 Resp 22 12/30/18 03:49 BP 117/80 11/30/18 03:49 Pulse Ox 80 L 11/30/18 00:01 Physical Exam: Pt _ (1) Hypothyroidism Hypothyroidism type: unspecified Qualified Code(s): E03.9 - Hypothyroidism, unspecified (2) Sepsis Sepsis type: sepsis due to unspecified organism Qualified Code(s): A41.9 - Sepsis, unspecified organism (3) Hypotension Hypotension type: unspecified hypotension type Trimester: Qualified Code(s) : I95.9 - Hypotension, unspecified
--- NOTE | 2018-11-30 09:20 | Death Summary ---
Date of Service November 30, 2018 Patient was agitated during night. Received a dose of iv haldol 5mg which he was getting prior. EKG no Qt prolongation. But about a hour later patient who was tachycardic suddenly became bradycardic and went into asystole. Patient was DNR. Pronounced at 6:40am 11/30/18. Exam: Ge unresponsive Eyes Pupils dilated, fixed and non reactive to light. Rs No spontaneous breathing , No breath sounds heard on ascultation CVS No heart sounds heard on ascultation Patient pronounced at 6:40am 11/30/18. Etiology unclear at this time. Notified Friend in [employer]. Tried to call brother but was not able to reach him. Pronouncement Note Contributing Factors (1) : (2) Small bowel obstruction: (3) Hypovolemic shock: (4) Sepsis: (5) Dehydration: (6) Hyperkalemia: (7) Hypotension: (8) Electrolyte abnormality: (9) ESRD (end stage renal disease) on dialysis: (10) Paranoid schizophrenia: (11) Thrombocytopenia: (12) Hypothyroidism: Additional Data Attending physician: Justine Pendleton MD
--- NOTE | 2018-11-30 10:18 | Discharge Summary ---
Date of Service November 30, 2018 Admission HPI Per Admitting Provider This is a 78-year-old male with past medical history of mental retardation/ learning disability, history of end-stage renal disease on dialysis secondary to hypertensive nephrosclerosis, has been on dialysis since December 2005, follows with nephrology with [facility], hypertension, hyperlipidemia, chronic thrombocytopenia, paranoid schizophrenia, hypothyroidism Patient is a resident at [facility]assisted living in [place] Last dialysis was on 11/23/2018, Patient unable to provide any history secondary to MR/acute illness [facility], Patient was not feeling well yesterday, had a very poor appetite Vomiting episodes twice overnight This morning staff found him to be very uncomfortable, patient could not verbalize any complaint Had few slices of peach this morning No vomiting No bowel movement since yesterday No report of fever or chills, no shortness of breath, Staff did notice that patient was found to be cold and clammy Was sent to the ER, On arrival to ER patient was found to be hypotensive, hyperkalemia, with elevated lactic acid more than 10 CT abdomen pelvis shows high-grade small bowel obstruction with transition point NG tube was inserted, with drainage of approximately 3 L of dark bilious material Patient will be admitted to ICU Was seen by surgery in ER already, recommend conservative approach with NG tube , IV fluids, for now (high risk for surgery) Patient clinically declines, will need exploratory laparotomy Principal Diagnosis PATIENT Discharge Data Allergies Allergy/AdvReac Type Severity Reaction Status Date / Time No Known Allergies Allergy Verified 11/25/18 12:06 Consultations 11/25/18 13:37 ED Decision to Admit Stat 11/25/18 13:49 Consult Technology Risk Intern Routine 11/25/18 14:39 Consult General Surgery Stat 11/25/18 14:46 Consult Nephrology Routine 11/25/18 15:01 Consult Case Management - Discharge Planning Routine 11/26/18 21:36 Consult Infectious Diseases Routine Procedures Performed Operation Date: 11/27/18 13:50 Actual Procedures p Exploratory Laparotomy, Excision intraluminal mass, biopsy of mesenteric mass( Not Applicable) - Alberto You MD, FACS Ordered Studies 11/25/18 11:40 CT abd pelvis wo con Stat Hospital Course (1) : pt at around 6: 40 am today 11/30/2018 was tachycardiac agitated later became bradycardic leading to asystole pt was DNR/DNI actual cause of uncertain : D/D: -possible Pulmonary embolism ( very high risk ) / possible aspiration -cardiac arrythmia with episode of tachycardia , leading to bradycadia - cardiopulmoary arrest presented with severe sepsis /small bowel obstruction / hypotensive shock due to sepsis /severe hypovolumia requiring pressors /hyperkalemia s/p dialysis ( ESRD on HD since 2005 ) pt was post op Day #4 for exp laparatomy had stable recovery post op extubated on POD#1 was on 02 via nasal canula with stable respiratory status was started on clears , noted to have aspiration on thin liquids ordered for NPO pending speech eval high risk for DVT , was not started on pharmacological anticoagulation on admission due to acute abdomen /plan or surgery was started on Eliquis on 11/29/18 by Technology Risk Intern for Afib (2) Small bowel obstruction: SBO (small bowel obstruction): Status post exploratory laparotomy on 11/27/[address] Newberry POD #@ ex lap, excision intraluminal mass, mesenteric biopsy Pathology mesenteric mass : SOFT TISSUE, MESENTERIC IMPLANT, EXCISION: - BENIGN DENSE FIBROUS TISSUE WITH CHRONIC INFLAMMATION, SCATTERED CALCIFICATIONS AND FOCAL HEMOSIDERIN DEPOSITION - NEGATIVE FOR MALIGNANCY pt was Sent from assisted living, secondary to nausea vomiting, abdominal discomfort CT abdomen pelvis shows high-grade small bowel obstruction with dilated small bowel loop 4.5 cm, with a transition zone NG tube inserted in ER, status post continued drainage of large amount of dark bilious fluid/gastric secretion s/p Exp laparatomy (3) Hypovolemic shock: present on admission due to severe sepsis / small bowel obstruction /dehydration with large amount of NG suction out put received IV fluid resuscitation, /required Iv Levophed S/P Rt IJ central line placement by new business clerk rt radial arterial line placed Nephrology following closely Patient is on dialysis chronically Will need continued dialysis for electrolyte and volume status management (4) Sepsis: resolved Presented with severe sepsis due to small bowel obstruction / criteria : hypotensive shock , elevated lactic acid , electrolyte deranagements blood culture : gram positive cocci (5) Dehydration: Due to the above, pt started on clears IV d/azalia Volume status will be monitored very closely, patient is on dialysis (6) Hyperkalemia: Due to combination of dehydration, history of end-stage renal disease on dialysis Patient with with hyperkalemia K level normalized with dialysis (7) Hypotension: secondary to severe sepsis dehydration, small bowel obstruction Lactic acid was elevated markedly resolved after IV hydration With combination of severe dehydration/in setting of end-stage renal disease on dialysis, lactic acid level improved after aggressive IV fluid resuscitation Status post exploratory laparotomy with excision of intra-lumen mass Appreciate input from new business clerk (8) Electrolyte abnormality: presented with lactic acidemia : hypotension , severe sespsis Hyperkalemia apprecaite input from Nephrolgy s/p dialysis (9) ESRD (end stage renal disease) on dialysis: History of hypertensive nephrosclerosis On dialysis since December 2005 Had multiple fistula, graft complication in the past Present has left upper arm AV fistula Patient follows with [facility] nephrology nephrology consulted appreciate input was cntinued with scheduled dialysis (10) Paranoid schizophrenia: oral meds resumed after surgery (11) Thrombocytopenia: Chronic No evidence of bleeding noted Avoid antiplatelets, anticoagulation Monitor daily CBC (12) Hypothyroidism: History of papillary thyroid carcinoma status post thyroidectomy with lymph node dissection by Dr. Grewal on 02/08 Oral supplement of Synthroid is kept on hold secondary to acute abdomen CODE STATUS : DNR/DNI PT ON 11/30/18 @ 6: 30 AM Total Time Total Time Spent Total Time Spent (In Minutes): Pt Discharge Plan Discharge Items Patient Disposition: Reason For Visit: SEVERE SEPSIS, SMALL BOWEL OBSTRUCTION Prescriptions: No Action atorvastatin 20 mg Tablet 20 mg PO DAILY RF: 0 haloperidol 5 mg Tablet 5 mg PO QPM RF: 0 furosemide 80 mg Tablet 80 mg PO DAILY RF: 0 ranitidine HCl 75 mg Tablet 75 mg PO DIRECTED PRN (Reason: Acid Reflux) RF: 0 diphenhydramine HCl [Diphenhist] 25 mg Capsule 25 mg PO DIRECTED PRN (Reason: Allergy Symptoms) RF: 0 benztropine 1 mg Tablet 1 mg PO BID RF: 0 haloperidol decanoate 50 mg/mL Solution 25 mg IM MONTHLY RF: 0 levothyroxine 200 mcg Tablet 200 mcg PO DAILY RF: 0 polyethylene glycol 3350 17 gram/dose Powder 17 g PO DIRECTED RF: 0 trihexyphenidyl 2 mg Tablet 2 mg PO HS RF: 0 calcium acetate 667 mg Capsule 667 mg PO DAILY RF: 0 vit B plai-D-VJ-copper-zinc [Folbee Plus] 5-1.5-25 mg Tablet 1 tab PO DAILY RF: 0 calcium carbonate-vitamin D3 [Calcium 500 + D] 500 mg(1,250mg) -200 unit Tablet 1 tab PO DAILY RF: 0 acetaminophen 325 mg Capsule 325 mg PO Q6H PRN (Reason: Pain) RF: 0 Admission Data Admit Date/Time: 11/25/18 13:48 Attending Provider: Justine Pendleton Admit Provider: Justine Pendleton Primary Care Provider: Nikolay Henriquez Other Providers: Justine Pendleton ; Diane Hemphill ; Chester Encinas ; Bhakti Quintanilla ; Violet Knight ; Seb Jules ; Jerrell Gomez ; Cyndi Mayes ; Lemuel Rodriguez ; Nikolay Yao ; Radha Slaughter ; Kaleb Damon ; Zaria Ivan ; Francia Sevilla ; Ailyn Parish ; Eliel Glaser Jr ; Tyree Farias ; Encoh De La Cruz ; Mert Marte ; Isabell Syed ; Nataliia Tian ; Juan Pablo Weeks ; Lemuel Cedillo ; Ailyn Gonzalez Service: Telemetry
== END 2018-11-30 12:37 | disposition expired | DRG 853 ==
LOC: ED 10:55 → 1E 13:48 → 2E 11-30 05:09